=== PATIENT | female | born 1995 | race Caucasian/White ===

== ENCOUNTER 2016-12-13 18:41 | Emergency (ER) | payer OTHER ==
[2016-12-13 19:08] VITALS: TEMP 98.7
[2016-12-13] MEDS ORDERED: ONDANSETRON 4 MG/2 ML VIAL IVP STA (19:24)
[2016-12-13] MEDS ORDERED: SODIUM CHLORIDE 0.9% 1,000 ML IV STA (19:24)
[2016-12-13] MEDS ORDERED: FAMOTIDINE 20 MG/2 ML VIAL IV STA (19:24)
[2016-12-13] MEDS ORDERED: KETOROLAC 30 MG/ML 1 ML VIAL IVP STA ×2 (19:24→20:29)
[2016-12-13] MEDS ORDERED: DICYCLOMINE 10 MG/ML 2 ML AMP IM STA (19:25)
--- NOTE | 2016-12-13 19:28 | ED ---
Abdominal Pain HPI - General Chief Complaint: Abdominal Pain Stated Complaint: side pain Time Seen by Provider: 12/13/16 19:10 Source: patient Mode of arrival: ambulatory Limitations: no limitations - History of Present Illness Initial Comments: Patient is a 21-year-old female presenting with right sided flank pain. Patient states symptoms of for the past 3 weeks. Patient was evaluated in the ER at the onset of her symptoms with a negative CAT scan as well as negative ultrasound. Patient states she was placed on tramadol for which she has been out of. Patient however states that the tramadol didn't even help. Patient states today she had 4-6 episodes of nonbloody nonbilious vomit. Patient also complaining of 2 episodes of loose stool. Patient denies sick contacts, recent antibiotics, recent travel. Patient denies suspicious food ingestion. She denies fever, chills, chest pain, shortness breath. - Related Data Home Medications Medication Instructions Recorded Confirmed Albuterol Inhaler [Ventolin Hfa 1 - 2 puff INHALATION RT-Q6H PRN 11/20/16 Inhaler] Prazosin [Minipress] 2 mg PO HS 12/13/16 12/13/16 Sertraline [Zoloft] 50 mg PO DAILY 12/13/16 12/13/16 Previous Rx's Medication Instructions Recorded Dicyclomine [Bentyl] 20 mg PO Q6H PRN #20 tablet 12/13/16 Ibuprofen [Motrin] 600 mg PO Q6HR PRN #20 tab 12/13/16 Ondansetron [Zofran] 4 mg PO Q8HR PRN #14 tab 12/13/16 Allergies Allergy/AdvReac Type Severity Reaction Status Date / Time No Known Allergies Allergy Verified 12/13/16 19:41 Review of Systems ROS Statement: Those systems with pertinent positive or pertinent negative responses have been documented in the HPI. Constitutional: No fever and no chills. HENT: No congestion, no rhinorrhea and no sore throat. Eyes: No discharge and no redness. Respiratory: No cough and no shortness of breath. Cardiovascular: No chest pain and no palpitations. Gastrointestinal: +nausea, +vomiting, +abdominal pain and +diarrhea. Genitourinary: No dysuria and no hematuria. Musculoskeletal: No back pain and no arthralgias. Skin: No pallor and no rash. Neurological: No dizziness and No headaches. ROS Other: All systems not noted in ROS Statement are negative. Past Medical History Past Medical History: Asthma, GERD/Reflux Additional Past Medical History / Comment(s): Anxiety, Depression History of Any Multi-Drug Resistant Organisms: None Reported Past Surgical History: Orthopedic Surgery, Tonsillectomy Additional Past Surgical History / Comment(s): broken back, ribs Past Psychological History: Anxiety, Bipolar, Depression Smoking Status: Current every day smoker Past Alcohol Use History: Rare Past Drug Use History: None Reported General Exam - General Exam Comments Initial Comments: Constitutional: Patient appears well-developed and well-nourished. No distress. Patient is soft spoken. Head: Normocephalic and atraumatic. Eyes: Conjunctivae and EOM are normal. Right eye exhibits no discharge. Left eye exhibits no discharge. No scleral icterus. Neck: Normal range of motion. Neck supple. Cardiovascular: Normal rate and regular rhythm. No murmur heard. Pulmonary/Chest: Effort normal and breath sounds normal. No respiratory distress. No wheezes. Abdominal: Soft. No distension. Mild right sided tenderness. Negative McBurney 's. Negative Parada's. There is no rebound and no guarding. Musculoskeletal: Normal range of motion. No edema or tenderness. Neurological: Patient alert and oriented to person, place, and time. Skin: Skin is warm and dry. Not diaphoretic. Nursing notes and vitals reviewed. Limitations: no limitations Course Vital Signs 12/13/16 19:04 Temperature 98.7 F Pulse Rate 91 Respiratory 14 Rate Blood Pressure 113/71 O2 Sat by Pulse 97 Oximetry - Reevaluation(s) Reevaluation #1: 12/13/16 20:43 Patient's feeling much better. Abdomen soft nontender. Medical Decision Making - Medical Decision Making Patient is a 21-year-old female presenting with right abdominal pain for the past 3 months. Patient complaining of nausea, vomiting and diarrhea. Patient was seen for similar symptoms several weeks ago. She was advised to follow up with GI and general surgery for which was unable to do yet. Patient was given Ultram which did not help her pain. Patient had blood work done today including CBC, CMP, lipase, UA, urine were all unremarkable. Patient is feeling better after IV fluids, Bentyl, Zofran, Pepcid, Toradol. Patient was given prescription for Bentyl, Zofran and Motrin. Prior to discharge, patient was resting comfortably in bed. Course of stay improved. Denies pain. Discussed physical exam and diagnostic tests with patient. Questions answered and patient is agreeable to discharge with close follow up with Primary Care Physician. Instructed to return to Emergency Department if symptoms worsen. - Lab Data Result diagrams: 12/13/16 20:00 12/13/16 20:00 Lab Results 12/13/16 12/13/16 12/13/16 Range/Units 20:00 20:00 20:00 WBC 8.4 (3.8-10.6) k/uL RBC 5.40 (3.80-5.40) m/uL Hgb 15.9 (11.4-16.0) gm/dL Hct 45.5 (34.0-46.0) % MCV 84.3 (80.0-100.0) fL MCH 29.5 (25.0-35.0) pg MCHC 35.0 (31.0-37.0) g/dL RDW 13.1 (11.5-15.5) % Plt Count 277 (150-450) k/uL Neutrophils % 77 % Lymphocytes % 13 % Monocytes % 5 % Eosinophils % 3 % Basophils % 1 % Neutrophils # 6.5 (1.3-7.7) k/uL Lymphocytes # 1.1 (1.0-4.8) k/uL Monocytes # 0.4 (0-1.0) k/uL Eosinophils # 0.3 (0-0.7) k/uL Basophils # 0.1 (0-0.2) k/uL Sodium 143 (137-145) mmol/L Potassium 4.1 (3.5-5.1) mmol/L Chloride 106 (98-107) mmol/L Carbon Dioxide 23 (22-30) mmol/L Anion Gap 14 mmol/L BUN 12 (7-17) mg/dL Creatinine 0.70 (0.52-1.04) mg/dL Est GFR (MDRD) Af Amer >60 (>60 ml/min/1.73 sqM) Est GFR (MDRD) Non-Af >60 (>60 ml/min/1.73 sqM) Glucose 83 (74-99) mg/dL Calcium 9.4 (8.4-10.2) mg/dL Magnesium 2.0 (1.6-2.3) mg/dL Total Bilirubin 1.2 (0.2-1.3) mg/dL AST 21 (14-36) U/L ALT 30 (9-52) U/L Alkaline Phosphatase 86 (38-126) U/L Total Protein 7.9 (6.3-8.2) g/dL Albumin 4.6 (3.5-5.0) g/dL Urine Color Urine Appearance (Clear) Urine pH (5.0-8.0) Ur Specific [place] (1.001-1.035) Urine Protein (Negative) Urine Glucose (UA) (Negative) Urine Ketones (Negative) Urine Blood (Negative) Urine Nitrate (Negative) Urine Bilirubin (Negative) Urine Urobilinogen (<2.0) mg/dL Ur Leukocyte Esterase (Negative) Urine RBC (0-5) /hpf Urine WBC (0-5) /hpf Ur Squamous Epith Cells (0-4) /hpf Urine Bacteria (None) /hpf Urine Mucus (None) /hpf Urine HCG, Qual Not Detected (Not Detectd) 12/13/16 Range/Units 20:00 WBC (3.8-10.6) k/uL RBC (3.80-5.40) m/uL Hgb (11.4-16.0) gm/dL Hct (34.0-46.0) % MCV (80.0-100.0) fL MCH (25.0-35.0) pg MCHC (31.0-37.0) g/dL RDW (11.5-15.5) % Plt Count (150-450) k/uL Neutrophils % % Lymphocytes % % Monocytes % % Eosinophils % % Basophils % % Neutrophils # (1.3-7.7) k/uL Lymphocytes # (1.0-4.8) k/uL Monocytes # (0-1.0) k/uL Eosinophils # (0-0.7) k/uL Basophils # (0-0.2) k/uL Sodium (137-145) mmol/L Potassium (3.5-5.1) mmol/L Chloride (98-107) mmol/L Carbon Dioxide (22-30) mmol/L Anion Gap mmol/L BUN (7-17) mg/dL Creatinine (0.52-1.04) mg/dL Est GFR (MDRD) Af Amer (>60 ml/min/1.73 sqM) Est GFR (MDRD) Non-Af (>60 ml/min/1.73 sqM) Glucose (74-99) mg/dL Calcium (8.4-10.2) mg/dL Magnesium (1.6-2.3) mg/dL Total Bilirubin (0.2-1.3) mg/dL AST (14-36) U/L ALT (9-52) U/L Alkaline Phosphatase (38-126) U/L Total Protein (6.3-8.2) g/dL Albumin (3.5-5.0) g/dL Urine Color Yellow Urine Appearance Cloudy H (Clear) Urine pH 6.0 (5.0-8.0) Ur Specific [place] 1.021 (1.001-1.035) Urine Protein 1+ H (Negative) Urine Glucose (UA) Negative (Negative) Urine Ketones Negative (Negative) Urine Blood Moderate H (Negative) Urine Nitrate Negative (Negative) Urine Bilirubin Negative (Negative) Urine Urobilinogen <2.0 (<2.0) mg/dL Ur Leukocyte Esterase Negative (Negative) Urine RBC 6 H (0-5) /hpf Urine WBC 3 (0-5) /hpf Ur Squamous Epith Cells 3 (0-4) /hpf Urine Bacteria Few H (None) /hpf Urine Mucus Occasional H (None) /hpf Urine HCG, Qual (Not Detectd) Disposition Clinical Impression: Nausea vomiting and diarrhea, Abdominal pain Disposition: HOME SELF-CARE Condition: Good Instructions: Abdominal Pain (ED), Acute Nausea and Vomiting (ED), Acute Diarrhea (ED) Prescriptions: Ibuprofen [Motrin] 600 mg PO Q6HR PRN #20 tab PRN Reason: Pain Ondansetron [Zofran] 4 mg PO Q8HR PRN #14 tab PRN Reason: Nausea Dicyclomine [Bentyl] 20 mg PO Q6H PRN #20 tablet PRN Reason: Abdominal pain Referrals: None,Stated [Primary Care Provider] - 1-2 days Jose Diaz MD [Medical Doctor] - 1-2 days
[2016-12-13 20:17] LABS: Basophils # (A) 0.1 k/uL (0-0.2); Basophils % (A) 1 %; CH 30.7; CHCM 36.6; Eosinophils # (A) 0.3 k/uL (0-0.7); Eosinophils % (A) 3 %; HCT 45.5 % (34.0-46.0); HDW 2.92; HGB 15.9 gm/dL (11.4-16.0); Luc # (Auto) 0.06; Luc % (Auto) 1; Lymphocytes # (A) 1.1 k/uL (1.0-4.8); Lymphocytes % (A) 13 %; MCH 29.5 pg (25.0-35.0); MCV 84.3 fL (80.0-100.0); Mean Platelet Volume 6.6; Monocytes # (A) 0.4 k/uL (0-1.0); Monocytes % (A) 5 %; Neutrophils # (A) 6.5 k/uL (1.3-7.7); Neutrophils % (A) 77 %; RDW 13.1 % (11.5-15.5); WBC 8.4 k/uL (3.8-10.6); WBC (Perox) 8.39
[2016-12-13 20:20] LABS: Appearance,Urine Cloudy (Clear); Bacteria,Urine Few /hpf; Bilirubin,Urine Negative (Negative); Glucose,Urine (UA) Negative (Negative); Ketones,Urine Negative (Negative); Leukocyte Esterase,Urine Negative (Negative); Mucus,Urine Occasional /hpf; Nitrite,Urine Negative (Negative); Particle Count 6007; Protein,Urine 1+ (Negative); RBC,Urine 6 /hpf (0-5); Specific Gravity,Urine 1.021 (1.001-1.035); Squamous Epithelial Cell,Urine 3 /hpf (0-4); UA Billing (MACRO vs. MICRO) MICRO; Urobilinogen,Urine <2.0 mg/dL (<2.0); WBC,Urine 3 /hpf (0-5)
[2016-12-13 20:27] LABS: ALT 30 U/L (9-52); AST 21 U/L (14-36); Alkaline Phosphatase 86 U/L (38-126); Anion Gap 14 mmol/L; Blood Urea Nitrogen 12 mg/dL (7-17); Calcium 9.4 mg/dL (8.4-10.2); Carbon Dioxide 23 mmol/L (22-30); Chloride 106 mmol/L (98-107); Glucose 83 mg/dL (74-99); Non-African American GFR(MDRD) >60 (>60 ml/min/1.73 sqM); Potassium 4.1 mmol/L (3.5-5.1); Sodium 143 mmol/L (137-145); Total Bilirubin 1.2 mg/dL (0.2-1.3); Total Protein 7.9 g/dL (6.3-8.2)
[2016-12-13] MEDS ORDERED: diphenhydrAMINE 50 MG/ML 1 ML VIAL IVP STA (21:45)
[2016-12-13] MEDS ORDERED: METOCLOPRAMIDE 5 MG/ML 2 ML VIAL IVP STA (21:45)
[2016-12-13 21:57] VITALS: BP 184/80; PULSE 60; RESP 20
== END 2016-12-13 22:29 ==
LOC: EC 18:41
DX: R11.2 Nausea with vomiting, unspecified (principal); R10.9 Unspecified abdominal pain; F41.9 Anxiety disorder, unspecified; R19.7 Diarrhea, unspecified; F17.200 Nicotine dependence, unspecified, uncomplicated; Z79.899 Other long term (current) drug therapy
CPT/HCPCS: 36415; 80053; 83735; 85025; 81001; 81025; 87086; 99284; 96372; 96374; 96376; 96375; 96361; J1200; J0500; J2765; J2405; J1885

== ENCOUNTER 2017-02-09 16:09 | Emergency (ER) | payer OTHER ==
[2017-02-09 16:26] VITALS: BP 128/80; PULSE 95; TEMP 98.8
[2017-02-09] MEDS ORDERED: methylPREDNISolone SOD SUCCI 125 MG/2 ML VIAL IM STA (16:30)
[2017-02-09] MEDS ORDERED: diphenhydrAMINE 50 MG/ML 1 ML VIAL IM STA (16:30)
[2017-02-09] MEDS ORDERED: FAMOTIDINE 20 MG TAB PO STA (16:31)
--- NOTE | 2017-02-09 16:36 | ED ---
Allergic Reaction HPI - General Chief complaint: Allergic Reaction Stated complaint: hives and throat swelling Time Seen by Provider: 02/09/17 16:27 Source: patient, RN notes reviewed Mode of arrival: ambulatory Limitations: no limitations - History of Present Illness Initial Comments: 21-year-old female presents to the emergency Department chief complaint of hives and throat irritation. Patient has been having these hives and throat irritation for about a week now. She states she just feels as if her throat is mildly swollen she has no difficulty breathing she can form. Sentences and conversation she just feels some itching and irritation to throat. Patient states she also has the hives. They did Benadryl initially made better they haven't anything since and it seems to just be staying about the same. They state there is no dog in the house but she has a history of having that they do not know if it was that. they deny any His soaps or detergents or any other new products.Patient denies any recent fever, chills, shortness of breath, chest pain, back pain, abdominal pain, nausea vomiting, numbness or tingling, dysuria or hematuria, constipation or diarrhea, headaches or visual changes, or any other current symptoms. - Related Data Home Medications Medication Instructions Recorded Confirmed Albuterol Inhaler [Ventolin Hfa 1 - 2 puff INHALATION RT-Q6H PRN 11/20/16 Inhaler] Prazosin [Minipress] 2 mg PO HS 12/13/16 02/09/17 Sertraline [Zoloft] 50 mg PO DAILY 12/13/16 02/09/17 Previous Rx's Medication Instructions Recorded Ibuprofen [Motrin] 600 mg PO Q6HR PRN #20 tab 12/13/16 Famotidine [Pepcid] 20 mg PO BID #10 tablet 02/09/17 diphenhydrAMINE [Benadryl] 50 mg PO HS PRN #5 capsule 02/09/17 predniSONE 50 mg PO DAILY #5 tab 02/09/17 Allergies Allergy/AdvReac Type Severity Reaction Status Date / Time No Known Allergies Allergy Verified 02/09/17 16:26 Review of Systems ROS Statement: Those systems with pertinent positive or pertinent negative responses have been documented in the HPI. ROS Other: All systems not noted in ROS Statement are negative. Past Medical History Past Medical History: Asthma, GERD/Reflux Additional Past Medical History / Comment(s): Anxiety, Depression History of Any Multi-Drug Resistant Organisms: None Reported Past Surgical History: Orthopedic Surgery, Tonsillectomy Additional Past Surgical History / Comment(s): broken back, ribs Past Psychological History: Anxiety, Bipolar, Depression Smoking Status: Current every day smoker Past Alcohol Use History: None Reported, Rare Past Drug Use History: None Reported General Exam - General Exam Comments Initial Comments: General exam: Alert, active, comfortable in no apparent distress Head: Normocephalic Eyes: Normal reaction of pupils, equal size, normal range of extraocular motion Ears: normal external ear canals, pink tympanic membranes with normal cone of light Nose: clear with pink turbinates Throat: no erythema or exudates with normal sized tonsils Neck: no masses, no nuchal rigidity Chest: no chest wall deformity Lungs: equal air entry with no crackles or wheeze CVS: S1 and S2 normal with no audible mumurs, regular rhythm Abdomen: no hepatosplenomegaly, normal bowel sounds, no guarding or rigidity Spine: no scoliosis or deformity Skin: Urticaria Limitations: no limitations Course Vital Signs 02/09/17 02/09/17 16:22 16:52 Temperature 98.8 F Pulse Rate 95 Respiratory 18 16 Rate Blood Pressure 128/80 O2 Sat by Pulse 96 Oximetry Medical Decision Making - Medical Decision Making 21-year-old female presents with urticaria. This is suspicious of an ALLERGIC type reaction. Patient is complaining of some irritation however she's had it for a week and has been no worsening of. We'll start patient on steroids Benadryl and Pepcid for home. We did give her injections. She developed nausea questions. He stated he understood all questions have been answered. Discharged home. Disposition Clinical Impression: Urticaria Disposition: HOME SELF-CARE Condition: Stable Instructions: Urticaria (ED) Additional Instructions: Please use medication as discussed. Please follow up with family doctor if symptoms have not improved over the next two days. Please return to the emergency room if your symptoms increase or worsen or for any other concerns. Prescriptions: Famotidine [Pepcid] 20 mg PO BID #10 tablet diphenhydrAMINE [Benadryl] 50 mg PO HS PRN #5 capsule PRN Reason: Itching predniSONE 50 mg PO DAILY #5 tab Referrals: Kena Diaz MD [STAFF PHYSICIAN] - 1-2 days Time of Disposition: 17:05
[2017-02-09 16:55] VITALS: RESP 16
== END 2017-02-09 17:08 | disposition home or self-care (01) ==
LOC: EC 16:09
DX: L50.9 Urticaria, unspecified (principal); R22.1 Localized swelling, mass and lump, neck; F31.9 Bipolar disorder, unspecified; F41.9 Anxiety disorder, unspecified; F17.200 Nicotine dependence, unspecified, uncomplicated; Z79.899 Other long term (current) drug therapy
CPT/HCPCS: 99283; 96372 ×2; J1200; J2930

== ENCOUNTER 2017-02-27 08:05 | Emergency (ER) | payer OTHER ==
[2017-02-27 08:12] VITALS: BP 137/83; PULSE 94; RESP 16; TEMP 98.9
[2017-02-27] MEDS ORDERED: RX INFO: IV CONTRAST WAS GIVEN 1 EACH MISC MISCELLANE PRN (08:13)
[2017-02-27] MEDS ORDERED: SODIUM CHLORIDE 0.9% 1,000 ML IV STA (08:13)
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
[2017-02-27 08:26] LABS: Basophils # (A) 0.1 k/uL (0-0.2); Basophils % (A) 1 %; CH 30.7; CHCM 37.1; Eosinophils # (A) 0.3 k/uL (0-0.7); Eosinophils % (A) 4 %; HCT 42.2 % (34.0-46.0); HDW 2.94; HGB 15.4 gm/dL (11.4-16.0); Luc # (Auto) 0.13; Luc % (Auto) 2; Lymphocytes # (A) 1.8 k/uL (1.0-4.8); Lymphocytes % (A) 29 %; MCH 30.4 pg (25.0-35.0); MCHC 36.5 g/dL (31.0-37.0); MCV 83.3 fL (80.0-100.0); Mean Platelet Volume 6.1; Monocytes # (A) 0.3 k/uL (0-1.0); Monocytes % (A) 5 %; Neutrophils # (A) 3.7 k/uL (1.3-7.7); Neutrophils % (A) 59 %; RBC 5.07 m/uL (3.80-5.40); RDW 13.7 % (11.5-15.5); WBC 6.3 k/uL (3.8-10.6); WBC (Perox) 6.07
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
[2017-02-27 08:33] LABS: Partial Thromboplastin Time 24.6 sec (22.0-30.0); Prothrombin Time 10.6 sec (9.0-12.0)
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
[2017-02-27 08:34] LABS: ALT 24 U/L (9-52); AST 20 U/L (14-36); Alcohol <10 mg/dL; Alkaline Phosphatase 78 U/L (38-126); Amylase 43 U/L (30-110); Anion Gap 11 mmol/L; Blood Urea Nitrogen 10 mg/dL (7-17); Calcium 10.5 mg/dL (8.4-10.2); Carbon Dioxide 28 mmol/L (22-30); Chloride 104 mmol/L (98-107); Glucose 99 mg/dL (74-99); Non-African American GFR(MDRD) >60 (>60 ml/min/1.73 sqM); Potassium 4.4 mmol/L (3.5-5.1); Sodium 143 mmol/L (137-145); Total Bilirubin 0.5 mg/dL (0.2-1.3); Total Protein 7.8 g/dL (6.3-8.2)
[2017-02-27 08:49] LABS: Creatine Kinase 72 U/L (30-135)
[2017-02-27 08:50] LABS: Glucose,Whole Blood 106 mg/dL (75-99)
[2017-02-27] MEDS ORDERED: HYDROmorphone 1 MG/ML 1 ML SYRINGE IVP STA (08:58)
[2017-02-27 09:02] LABS: Creatine Kinase MB <0.2 ng/mL (0.0-2.4); Troponin I <0.012 ng/mL (0.000-0.034)
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
--- NOTE | 2017-02-27 09:15 | XR ---
EXAMINATION TYPE: XR knee complete LT DATE OF EXAM: 02/27/2017 9:01 AM COMPARISON: NONE HISTORY: Pain TECHNIQUE: Four views are submitted. FINDINGS: Joint spaces are preserved. Osseous structures are intact. No acute fracture seen. Diffuse osteope radha noted. No erosive changes. IMPRESSION: 1. No acute fracture or dislocation.
--- NOTE | 2017-02-27 09:19 | XR ---
EXAMINATION TYPE: XR foot complete RT DATE OF EXAM: 02/27/2017 9:01 AM COMPARISON: NONE HISTORY: Pain TECHNIQUE: Three views are submitted. FINDINGS: There is mild arthropathy of the first MTP joint.. There is a fracture involving the head of the four th metacarpal with mild displacement. IMPRESSION: 1. Fracture head of the fourth metacarpal. Mild displacement.
[2017-02-27 09:25] LABS: Appearance,Urine Clear (Clear); Bilirubin,Urine Negative (Negative); Glucose,Urine (UA) Negative (Negative); Ketones,Urine Negative (Negative); Leukocyte Esterase,Urine Negative (Negative); Nitrite,Urine Negative (Negative); Protein,Urine Negative (Negative); Specific Gravity,Urine 1.029 (1.001-1.035); UA Billing (MACRO vs. MICRO) CHEM; Urobilinogen,Urine <2.0 mg/dL (<2.0)
== END 2017-02-27 10:50 | disposition home or self-care (01) ==
LOC: EC 08:05
DX: S92.341A Displaced fracture of fourth metatarsal bone, right foot, initial encounter for closed fracture (principal); S20.219A Contusion of unspecified front wall of thorax, initial encounter; S30.1XXA Contusion of abdominal wall, initial encounter; S80.02XA Contusion of left knee, initial encounter; S09.90XA Unspecified injury of head, initial encounter; M54.2 Cervicalgia; F32.9 Major depressive disorder, single episode, unspecified; F41.9 Anxiety disorder, unspecified; F17.200 Nicotine dependence, unspecified, uncomplicated; Z79.899 Other long term (current) drug therapy; V87.7XXA Person injured in collision between other specified motor vehicles (traffic), initial encounter; Y92.410 Unspecified street and highway as the place of occurrence of the external cause
CPT/HCPCS: 99291; 29515; 96374; 96361 ×2; 36415; 93005; 86900; 86901; 80053; 82150; 82550; 82553; 83690; 84484; 85025; 85610; 85730; 86850; 81003; 81025; 80306; 80320; 71010; 72170; 73562; 73630; 72125; 70450; 71260; 74177; J1170; Q9967

== ENCOUNTER 2017-03-11 11:10 | Emergency (ER) | payer OTHER ==
[2017-03-11 11:35] VITALS: BP 185/81; TEMP 97.1
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
[2017-03-11 12:42] VITALS: PULSE 71; RESP 16
== END 2017-03-11 12:43 | disposition home or self-care (01) ==
LOC: EC 11:10
DX: S92.901D Unspecified fracture of right foot, subsequent encounter for fracture with routine healing (principal); F31.9 Bipolar disorder, unspecified; F17.200 Nicotine dependence, unspecified, uncomplicated; Z79.899 Other long term (current) drug therapy
CPT/HCPCS: 29515; 99283

== ENCOUNTER 2017-04-21 19:56 | Emergency (ER) | payer OTHER ==
[2017-04-21 20:17] VITALS: BP 116/61; PULSE 91; RESP 16; TEMP 98.6
--- NOTE | 2017-04-21 21:03 | ED ---
ENT HPI - General Chief complaint: ENT Stated complaint: Dizziness Time Seen by Provider: 04/21/17 20:21 Source: patient Mode of arrival: wheelchair Limitations: no limitations - History of Present Illness Initial comments: Patient is a 21-year-old female presenting to the emergency department with complaints of bilateral ear pain that started immediately this afternoon after patient jumped in the iqbal. Patient describes bilateral ear pain as pressure and a "feeling like her ears are crackly." Patient took Motrin 2 hours prior to arrival with minimal relief. Patient states she has a history of prior ear infections. MD complaint: ear pain Time: 16:00 Location: R ear, L ear Severity: severe Severity scale (1-10): 8 Consistency: constant Improves with: none Worsens with: none Context- Ear: recent swimming - Related Data Home Medications Medication Instructions Recorded Confirmed Albuterol Inhaler [Ventolin Hfa 1 - 2 puff INHALATION RT-Q6H PRN 11/20/16 Inhaler] Prazosin [Minipress] 2 mg PO HS 12/13/16 02/27/17 Sertraline [Zoloft] 50 mg PO DAILY 12/13/16 02/27/17 Famotidine [Pepcid] 20 mg PO BID PRN 02/27/17 02/27/17 Previous Rx's Medication Instructions Recorded Ibuprofen [Motrin] 600 mg PO Q6HR PRN #20 tab 12/13/16 diphenhydrAMINE [Benadryl] 50 mg PO HS PRN #5 capsule 02/09/17 Ibuprofen [Motrin] 800 mg PO Q6HR PRN #20 tab 02/27/17 Allergies Allergy/AdvReac Type Severity Reaction Status Date / Time No Known Allergies Allergy Verified 04/21/17 20:17 Review of Systems ROS Statement: Those systems with pertinent positive or pertinent negative responses have been documented in the HPI. ROS Other: All systems not noted in ROS Statement are negative. Past Medical History Past Medical History: Asthma, GERD/Reflux Additional Past Medical History / Comment(s): Anxiety, Depression History of Any Multi-Drug Resistant Organisms: None Reported Past Surgical History: Orthopedic Surgery, Tonsillectomy Additional Past Surgical History / Comment(s): broken back, ribs Past Psychological History: Anxiety, Bipolar, Depression Smoking Status: Current every day smoker Past Alcohol Use History: None Reported, Rare Past Drug Use History: None Reported General Exam Limitations: no limitations General appearance: alert, in no apparent distress Head exam: Present: atraumatic, normocephalic, normal inspection Eye exam: Present: normal appearance Expanded Mouth exam: Present: normal external inspection, tongue normal Teeth exam: Present: normal inspection Throat exam: normal inspection Neck exam: Present: normal inspection, full ROM. Absent: tenderness, lymphadenopathy Respiratory exam: Present: normal lung sounds bilaterally. Absent: respiratory distress, wheezes, rales, rhonchi, stridor Cardiovascular Exam: Present: regular rate, normal rhythm, normal heart sounds. Absent: systolic murmur, diastolic murmur, rubs, gallop, clicks GI/Abdominal exam: Present: soft, normal bowel sounds Extremities exam: Present: normal inspection, full ROM. Absent: tenderness Neurological exam: Present: alert, oriented X3, normal gait, other (No focal deficits noted) Psychiatric exam: Present: normal affect, normal mood Skin exam: Present: warm, dry, intact, normal color Course Vital Signs 04/21/17 20:13 Temperature 98.6 F Pulse Rate 91 Respiratory 16 Rate Blood Pressure 116/61 O2 Sat by Pulse 97 Oximetry Medical Decision Making - Medical Decision Making Bilateral ear pain suspect secondary to barotrauma secondary to diving into iqbal. No obvious signs of infection or eardrum trauma on ear exam. Patient instructed to use oral decongestants, antihistamines, and nasal decongestant spray to equalize pressure along with chewing gum and sucking hard candy. Patient instructed to continue Motrin or Tylenol for pain. Patient started to follow-up with primary care physician if symptoms do not resolve. Patient agrees with treatment plan. Discharge instructions and return parameters reviewed. Disposition Clinical Impression: Barotitis media Disposition: HOME SELF-CARE Condition: Good Instructions: Barotitis Media (ED) Additional Instructions: Oral decongestants, antihistamines, and nasal decongestants may help as well as chewing on hard candy or chewing gum. Please follow-up with primary care physician as directed if symptoms do not improve. Continue Motrin for pain. Please return to the emergency department if symptoms do not increase or get worse. Referrals: Salome Hidalgo MD [Primary Care Provider] - 1-2 days Time of Disposition: 21:03
== END 2017-04-21 21:10 | disposition home or self-care (01) ==
LOC: EC 19:56
DX: T70.0XXA Otitic barotrauma, initial encounter (principal); F32.9 Major depressive disorder, single episode, unspecified; F41.9 Anxiety disorder, unspecified; F17.200 Nicotine dependence, unspecified, uncomplicated; Z79.899 Other long term (current) drug therapy; X58.XXXA Exposure to other specified factors, initial encounter; Y93.15 Activity, underwater diving and snorkeling
CPT/HCPCS: 99283

== ENCOUNTER 2017-05-02 13:41 | Emergency (ER) | payer OTHER ==
[2017-05-02 13:51] VITALS: RESP 18
[2017-05-02] MEDS ORDERED: DIPH,PERTUS(ACELL)TETVAC-LF 0.5 ML VIAL IM ONE (14:14)
[2017-05-02] MEDS ORDERED: BACITRACIN OINT 1 EACH PACKET TOPICAL STA (14:27)
[2017-05-02] MEDS: BACITRACIN 500 UNIT/GM OINT 28.4 GM TUBE TOPICAL ONE ×2 (14:32→15:03)
--- NOTE | 2017-05-02 14:36 | ED ---
General Adult HPI - General Chief complaint: Upper Respiratory Infection Stated complaint: Congestion Time Seen by Provider: 05/02/17 14:07 Source: patient, RN notes reviewed Mode of arrival: EMS Limitations: no limitations - History of Present Illness Initial comments: Patient is a 21-year-old female who presents emergency room today with multiple complaints. She does admit that 3 days ago she burned her left lower leg with ROM and soup. She states that accidentally spilled went down her left leg. She does admit to 2 blisters to this area. She states she went to [facility] earlier today was advised come here to emergency room for further evaluation. She states that she's had increased cough congestion with rhinorrhea over the last 2 days. States that they wanted her to have chest x- ray and further evaluation. She does admit to some pain when she coughs to the anterior chest wall. Does admit to increased nasal drainage. Denies any other complaints or symptoms at this time. Patient denies any recent fever, chills, shortness of breath, chest pain, back pain, abdominal pain, nausea or vomiting, numbness or tingling, dysuria or hematuria, constipation or diarrhea, headaches or visual changes, or any other complaints. - Related Data Home Medications Medication Instructions Recorded Confirmed Albuterol Sulfate [Proair Hfa] 2 puff INHALATION RT-Q6H PRN 05/02/17 05/02/17 Previous Rx's Medication Instructions Recorded diphenhydrAMINE [Benadryl] 50 mg PO HS PRN #5 capsule 02/09/17 Ibuprofen [Motrin] 800 mg PO Q6HR PRN #20 tab 02/27/17 Amoxicillin/Potassium Clav 1 each PO Q12HR #20 tab 05/02/17 [Augmentin 875-125 Tablet] Fluticasone Propionate [Flonase 1 - 2 spray EA NOSTRIL DAILY 5 Days 05/02/17 Allergy Relief] Ibuprofen [Motrin] 600 mg PO Q6HR PRN #20 day 05/02/17 Ondansetron Odt [Zofran ODT] 4 mg PO Q8HR PRN #20 tab 05/02/17 Allergies Allergy/AdvReac Type Severity Reaction Status Date / Time No Known Allergies Allergy Verified 05/02/17 14:18 Review of Systems ROS Statement: Those systems with pertinent positive or pertinent negative responses have been documented in the HPI. ROS Other: All systems not noted in ROS Statement are negative. Past Medical History Past Medical History: Asthma, GERD/Reflux Additional Past Medical History / Comment(s): Anxiety, Depression History of Any Multi-Drug Resistant Organisms: None Reported Past Surgical History: Orthopedic Surgery, Tonsillectomy Additional Past Surgical History / Comment(s): broken back, ribs Past Psychological History: Anxiety, Bipolar, Depression Smoking Status: Current every day smoker Past Alcohol Use History: None Reported, Rare Past Drug Use History: None Reported General Exam - General Exam Comments Initial Comments: General: The patient is awake and alert, in no distress, and does not appear acutely ill. Eye: Pupils are equal, round and reactive to light, extra-ocular movements are intact. No nystagmus. There is normal conjunctiva bilaterally. No signs of icterus. Ears, nose, mouth and throat: There are moist mucous membranes and no oral lesions. Neck: The neck is supple, there is no tenderness or JVD. Cardiovascular: There is a regular rate and rhythm. No murmur, rub or gallop is appreciated. tender palpation to the anterior chest wall. Respiratory: Lungs are clear to auscultation, respirations are non-labored, breath sounds are equal. No wheezes, stridor, rales, or rhonchi. Gastrointestinal: Soft, non-distended, non-tender abdomen without masses or organomegaly noted. There is no rebound or guarding present. No CVA tenderness. Bowel sounds are unremarkable. Musculoskeletal: Normal ROM, no tenderness. Strength 5/5. Sensation intact. Pulses equal bilaterally 2+. Neurological: A&O x 3. CN II-XII intact, There are no obvious motor or sensory deficits. Coordination appears grossly intact. Speech is normal. Skin: patient does have a significant degree burn to the anterior aspect of the left lower leg. The wound is non-circumferential. There are 2 large blisters are closed. Wound area measures approximately 1-2% total body surface. Psychiatric: Cooperative, appropriate mood & affect, normal judgment. Limitations: no limitations Course Vital Signs 05/02/17 05/02/17 05/02/17 13:47 15:01 15:49 Temperature 99.0 F 100.4 F H 99.2 F Pulse Rate 104 H 104 H Respiratory 18 18 Rate Blood Pressure 119/63 127/65 O2 Sat by Pulse 97 97 Oximetry Medical Decision Making - Medical Decision Making Case discussed in detail with attending physician Dr. Gomez. Patient reexamined at this time shows no signs of distress. Patient resting comfortably in the stretcher. She does have tenderness over both frontal and maxillary sinuses. Does admit to a cough with sore throat as well. Patient does have a low-grade fever here in the emergency room. EKG does shows sinus tachycardia aren't 3 bpm. Chest x-ray reviewed and are negative for any sign of pneumonia or any other acute abnormality. Results were discussed with the patient. Patient's blood work reviewed and does show 12,000 white count. D-dimer mildly elevated at 0.52. Long discussion had with the patient about signs and symptoms of possible blood clot. Options were discussed about a CT of the chest to rule out a PE. The risks and benefits were discussed with the patient. At this time patient has declined CT states she feels that it is more cough congestion causing her symptoms. She be started on Flonase, Augmentin for sinus infection. Advised close follow-up family doctor return here to the emergency room if symptoms increase or worsen or for any other concerns. - Lab Data Result diagrams: 05/02/17 15:00 05/02/17 15:00 Lab Results 05/02/17 05/02/17 05/02/17 Range/Units 15:00 15:00 15:00 WBC 12.3 H (3.8-10.6) k/uL RBC 4.47 (3.80-5.40) m/uL Hgb 13.8 (11.4-16.0) gm/dL Hct 38.4 (34.0-46.0) % MCV 85.9 (80.0-100.0) fL MCH 31.0 (25.0-35.0) pg MCHC 36.1 (31.0-37.0) g/dL RDW 13.4 (11.5-15.5) % Plt Count 317 (150-450) k/uL Neutrophils % 87 % Lymphocytes % 7 % Monocytes % 3 % Eosinophils % 2 % Basophils % 0 % Neutrophils # 10.7 H (1.3-7.7) k/uL Lymphocytes # 0.8 L (1.0-4.8) k/uL Monocytes # 0.4 (0-1.0) k/uL Eosinophils # 0.3 (0-0.7) k/uL Basophils # 0.0 (0-0.2) k/uL D-Dimer 0.52 (<0.60) mg/L FEU Sodium 140 (137-145) mmol/L Potassium 3.8 (3.5-5.1) mmol/L Chloride 106 (98-107) mmol/L Carbon Dioxide 23 (22-30) mmol/L Anion Gap 11 mmol/L BUN 5 L (7-17) mg/dL Creatinine 0.57 (0.52-1.04) mg/dL Est GFR (MDRD) Af Amer >60 (>60 ml/min/1.73 sqM) Est GFR (MDRD) Non-Af >60 (>60 ml/min/1.73 sqM) Glucose 90 (74-99) mg/dL Calcium 9.4 (8.4-10.2) mg/dL Disposition Clinical Impression: Acute sinusitis Disposition: HOME SELF-CARE Condition: Good Instructions: Sinusitis (ED) Additional Instructions: Please use medication as discussed. Please follow-up with family doctor in the next 2 days. Please return to emergency room if the symptoms increase or worsen or for any other concerns. Prescriptions: Amoxicillin/Potassium Clav [Augmentin 875-125 Tablet] 1 each PO Q12HR #20 tab Fluticasone Propionate [Flonase Allergy Relief] 1 - 2 spray EA NOSTRIL DAILY 5 Days Ibuprofen [Motrin] 600 mg PO Q6HR PRN #20 day PRN Reason: Pain Ondansetron Odt [Zofran ODT] 4 mg PO Q8HR PRN #20 tab PRN Reason: Nausea Referrals: Salome Hidalgo MD [Primary Care Provider] - 1-2 days Time of Disposition: 16:11
--- NOTE | 2017-05-02 14:51 | XR ---
EXAMINATION TYPE: XR chest 2V DATE OF EXAM: 05/02/2017 COMPARISON: CXR from 02-27-2017. HISTORY: Cough and congestion since yesterday. TECHNIQUE: Frontal and lateral views of the chest are obtained. FINDINGS: There is no focal air space opacity, pleural effusion, or pneumothorax seen. The cardiac silhouette size is within normal limits. The osseous structures are intact. IMPRESSION: No acute cardiopulmonary process.
[2017-05-02 15:07] LABS: Basophils % (A) 0 %; CH 31.8; CHCM 37.1; Eosinophils # (A) 0.3 k/uL (0-0.7); Eosinophils % (A) 2 %; HCT 38.4 % (34.0-46.0); HDW 2.88; HGB 13.8 gm/dL (11.4-16.0); Luc # (Auto) 0.07; Luc % (Auto) 1; Lymphocytes # (A) 0.8 k/uL (1.0-4.8); Lymphocytes % (A) 7 %; MCHC 36.1 g/dL (31.0-37.0); MCV 85.9 fL (80.0-100.0); Mean Platelet Volume 5.9; Monocytes # (A) 0.4 k/uL (0-1.0); Monocytes % (A) 3 %; Neutrophils # (A) 10.7 k/uL (1.3-7.7); Neutrophils % (A) 87 %; RBC 4.47 m/uL (3.80-5.40); RDW 13.4 % (11.5-15.5); WBC 12.3 k/uL (3.8-10.6); WBC (Perox) 12.63
[2017-05-02 15:20] LABS: Anion Gap 11 mmol/L; Blood Urea Nitrogen 5 mg/dL (7-17); Calcium 9.4 mg/dL (8.4-10.2); Carbon Dioxide 23 mmol/L (22-30); Chloride 106 mmol/L (98-107); Glucose 90 mg/dL (74-99); Non-African American GFR(MDRD) >60 (>60 ml/min/1.73 sqM); Potassium 3.8 mmol/L (3.5-5.1); Sodium 140 mmol/L (137-145)
[2017-05-02 16:37] VITALS: BP 131/63; PULSE 111; TEMP 99.9
== END 2017-05-02 16:36 | disposition home or self-care (01) ==
LOC: EC 13:41
DX: J01.90 Acute sinusitis, unspecified (principal); T24.032A Burn of unspecified degree of left lower leg, initial encounter; T31.0 Burns involving less than 10% of body surface; R00.0 Tachycardia, unspecified; R79.1 Abnormal coagulation profile; F17.200 Nicotine dependence, unspecified, uncomplicated; Z23 Encounter for immunization; X12.XXXA Contact with other hot fluids, initial encounter
CPT/HCPCS: 36415; 71020; 80048; 85025; 85379; 90471; 90715; 93005; 99284

== ENCOUNTER 2017-08-05 09:42 | Emergency (ER) | payer OTHER ==
[2017-08-05] MEDS ORDERED: KETOROLAC 30 MG/ML 1 ML VIAL IVP STA (10:10)
[2017-08-05] MEDS ORDERED: SODIUM CHLORIDE 0.9% 1,000 ML IV STA (10:10)
--- NOTE | 2017-08-05 10:22 | ED ---
General Adult HPI - General Chief complaint: Abdominal Pain Stated complaint: ABDOMINAL AND BACK PAIN Time Seen by Provider: 08/05/17 10:00 Source: patient, RN notes reviewed Mode of arrival: ambulatory Limitations: no limitations - History of Present Illness Initial comments: 2-year-old female presents to the emergency department with a chief complaint of abdominal pain. Patient states around 3 AM she woke up and her whole abdomen hurts. Patient states it was a stabbing type pain. patient states that radiates to her back. Patient seen changes in bowel or bladder habits. Patient denies any nausea or vomiting. Patient denies any cough cold or runny nose like symptoms. Patient denies any abdominal surgeries. Patient was concerned due to her. So she thought that she should be evaluated.Patient denies any recent fever, chills, shortness of breath, chest pain, back pain, nausea vomiting, numbness or tingling, dysuria or hematuria, constipation or diarrhea, headaches or visual changes, or any other current symptoms. - Related Data Home Medications Medication Instructions Recorded Confirmed Albuterol Sulfate [Proair Hfa] 2 puff INHALATION RT-Q6H PRN 05/02/17 05/02/17 Previous Rx's Medication Instructions Recorded Ibuprofen [Motrin] 800 mg PO Q6HR PRN #20 tab 02/27/17 Dicyclomine [Bentyl] 10 mg PO TID #20 capsule 08/05/17 Ondansetron Odt [Zofran ODT] 4 mg PO Q8HR PRN #20 tab 08/05/17 Allergies Allergy/AdvReac Type Severity Reaction Status Date / Time No Known Allergies Allergy Verified 08/05/17 10:30 Review of Systems ROS Statement: Those systems with pertinent positive or pertinent negative responses have been documented in the HPI. ROS Other: All systems not noted in ROS Statement are negative. Past Medical History Past Medical History: Asthma, GERD/Reflux Additional Past Medical History / Comment(s): Anxiety, Depression History of Any Multi-Drug Resistant Organisms: None Reported Past Surgical History: Orthopedic Surgery, Tonsillectomy Additional Past Surgical History / Comment(s): broken back, ribs Past Psychological History: Anxiety, Bipolar, Depression Smoking Status: Current every day smoker Past Alcohol Use History: None Reported, Rare Past Drug Use History: None Reported General Exam - General Exam Comments Initial Comments: General: The patient is awake and alert, in no distress, and does not appear acutely ill. Eye: Pupils are equal, round and reactive to light, extra-ocular movements are intact; there is normal conjunctiva bilaterally. No signs of icterus. Ears, nose, mouth and throat: There are moist mucous membranes and no oral lesions. Neck: The neck is supple, there is no tenderness. Cardiovascular: There is a regular rate and rhythm. No murmur, rub or gallop is appreciated. Respiratory: Lungs are clear to auscultation, respirations are non-labored, breath sounds are equal. No wheezes, stridor, rales, or rhonchi. Gastrointestinal: Soft, non-distended, non-tender abdomen without masses or organomegaly noted. There is no rebound or guarding present. No CVA tenderness. Bowel sounds are unremarkable. Back: There is no tenderness to palpation in the midline. There is no obvious deformity. No rashes noted. Musculoskeletal: Normal ROM, no tenderness, There is no pedal edema. There is no calf tenderness or swelling. Sensation intact. Pulses equal bilaterally 2+. Neurological: CN II-XII intact, There are no obvious motor or sensory deficits. Coordination appears grossly intact. Speech is normal. Skin: Skin is warm and dry and no rashes or lesions are noted. Psychiatric: Cooperative, appropriate mood & affect, normal judgment. Limitations: no limitations Course Vital Signs 08/05/17 09:46 Temperature 97.1 F L Pulse Rate 66 Respiratory 18 Rate Blood Pressure 126/79 O2 Sat by Pulse 97 Oximetry Medical Decision Making - Medical Decision Making 22-year-old female presents emergency department with a chief complaint of abdominal pain.at this time lab work is reviewed as well as x-ray. This discussed other etiologies patient's pain however with several her with [facility] for home. We did discuss return for hours and follow-up and all the patient's family's questions. They stated they understood and the on agreement plan. All questions have been answered. They will be discharged. - Lab Data Result diagrams: 08/05/17 10:30 08/05/17 10:30 Lab Results 08/05/17 08/05/17 08/05/17 Range/Units 10:30 10:30 10:30 WBC 7.8 (3.8-10.6) k/uL RBC 5.02 (3.80-5.40) m/uL Hgb 15.0 (11.4-16.0) gm/dL Hct 42.9 (34.0-46.0) % MCV 85.5 (80.0-100.0) fL MCH 30.0 (25.0-35.0) pg MCHC 35.1 (31.0-37.0) g/dL RDW 13.1 (11.5-15.5) % Plt Count 315 (150-450) k/uL Neutrophils % 65 % Lymphocytes % 24 % Monocytes % 5 % Eosinophils % 4 % Basophils % 1 % Neutrophils # 5.1 (1.3-7.7) k/uL Lymphocytes # 1.9 (1.0-4.8) k/uL Monocytes # 0.4 (0-1.0) k/uL Eosinophils # 0.3 (0-0.7) k/uL Basophils # 0.0 (0-0.2) k/uL Sodium 141 (137-145) mmol/L Potassium 4.2 (3.5-5.1) mmol/L Chloride 108 H (98-107) mmol/L Carbon Dioxide 22 (22-30) mmol/L Anion Gap 11 mmol/L BUN 12 (7-17) mg/dL Creatinine 0.56 (0.52-1.04) mg/dL Est GFR (MDRD) Af Amer >60 (>60 ml/min/1.73 sqM) Est GFR (MDRD) Non-Af >60 (>60 ml/min/1.73 sqM) Glucose 92 (74-99) mg/dL Calcium 10.0 (8.4-10.2) mg/dL Total Bilirubin 0.2 (0.2-1.3) mg/dL AST 17 (14-36) U/L ALT 21 (9-52) U/L Alkaline Phosphatase 69 (38-126) U/L Total Protein 7.3 (6.3-8.2) g/dL Albumin 4.4 (3.5-5.0) g/dL Amylase <30 L (30-110) U/L Lipase 62 (23-300) U/L Urine Color Urine Appearance (Clear) Urine pH (5.0-8.0) Ur Specific [place] (1.001-1.035) Urine Protein (Negative) Urine Glucose (UA) (Negative) Urine Ketones (Negative) Urine Blood (Negative) Urine Nitrite (Negative) Urine Bilirubin (Negative) Urine Urobilinogen (<2.0) mg/dL Ur Leukocyte Esterase (Negative) Urine RBC (0-5) /hpf Urine WBC (0-5) /hpf Ur Squamous Epith Cells (0-4) /hpf Urine Bacteria (None) /hpf Urine HCG, Qual Not Detected (Not Detectd) 08/05/17 Range/Units 10:30 WBC (3.8-10.6) k/uL RBC (3.80-5.40) m/uL Hgb (11.4-16.0) gm/dL Hct (34.0-46.0) % MCV (80.0-100.0) fL MCH (25.0-35.0) pg MCHC (31.0-37.0) g/dL RDW (11.5-15.5) % Plt Count (150-450) k/uL Neutrophils % % Lymphocytes % % Monocytes % % Eosinophils % % Basophils % % Neutrophils # (1.3-7.7) k/uL Lymphocytes # (1.0-4.8) k/uL Monocytes # (0-1.0) k/uL Eosinophils # (0-0.7) k/uL Basophils # (0-0.2) k/uL Sodium (137-145) mmol/L Potassium (3.5-5.1) mmol/L Chloride (98-107) mmol/L Carbon Dioxide (22-30) mmol/L Anion Gap mmol/L BUN (7-17) mg/dL Creatinine (0.52-1.04) mg/dL Est GFR (MDRD) Af Amer (>60 ml/min/1.73 sqM) Est GFR (MDRD) Non-Af (>60 ml/min/1.73 sqM) Glucose (74-99) mg/dL Calcium (8.4-10.2) mg/dL Total Bilirubin (0.2-1.3) mg/dL AST (14-36) U/L ALT (9-52) U/L Alkaline Phosphatase (38-126) U/L Total Protein (6.3-8.2) g/dL Albumin (3.5-5.0) g/dL Amylase (30-110) U/L Lipase (23-300) U/L Urine Color Light Yellow Urine Appearance Clear (Clear) Urine pH 6.5 (5.0-8.0) Ur Specific [place] 1.007 (1.001-1.035) Urine Protein Negative (Negative) Urine Glucose (UA) Negative (Negative) Urine Ketones Negative (Negative) Urine Blood Trace H (Negative) Urine Nitrite Negative (Negative) Urine Bilirubin Negative (Negative) Urine Urobilinogen <2.0 (<2.0) mg/dL Ur Leukocyte Esterase Negative (Negative) Urine RBC 1 (0-5) /hpf Urine WBC 2 (0-5) /hpf Ur Squamous Epith Cells 1 (0-4) /hpf Urine Bacteria Rare H (None) /hpf Urine HCG, Qual (Not Detectd) - Radiology Data Radiology results: report reviewed, image reviewed Disposition Clinical Impression: Abdominal pain Disposition: HOME SELF-CARE Condition: Stable Instructions: Abdominal Pain (ED) Additional Instructions: Please use medication as discussed. Please follow up with family doctor if symptoms have not improved over the next two days. Please return to the emergency room if your symptoms increase or worsen or for any other concerns. Prescriptions: Dicyclomine [Bentyl] 10 mg PO TID #20 capsule Ondansetron Odt [Zofran ODT] 4 mg PO Q8HR PRN #20 tab PRN Reason: Nausea Referrals: Salome Hidalgo MD [Primary Care Provider] - 1-2 days Time of Disposition: 11:21
[2017-08-05 10:41] LABS: Basophils % (A) 1 %; CH 30.8; CHCM 36.1; Eosinophils # (A) 0.3 k/uL (0-0.7); Eosinophils % (A) 4 %; HCT 42.9 % (34.0-46.0); HDW 2.75; Luc # (Auto) 0.11; Luc % (Auto) 1; Lymphocytes # (A) 1.9 k/uL (1.0-4.8); Lymphocytes % (A) 24 %; MCHC 35.1 g/dL (31.0-37.0); MCV 85.5 fL (80.0-100.0); Mean Platelet Volume 6.2; Monocytes # (A) 0.4 k/uL (0-1.0); Monocytes % (A) 5 %; Neutrophils # (A) 5.1 k/uL (1.3-7.7); Neutrophils % (A) 65 %; RBC 5.02 m/uL (3.80-5.40); RDW 13.1 % (11.5-15.5); WBC 7.8 k/uL (3.8-10.6); WBC (Perox) 7.79
[2017-08-05 10:51] LABS: Appearance,Urine Clear (Clear); Bacteria,Urine Rare /hpf; Bilirubin,Urine Negative (Negative); Glucose,Urine (UA) Negative (Negative); Ketones,Urine Negative (Negative); Leukocyte Esterase,Urine Negative (Negative); Nitrite,Urine Negative (Negative); PH, Urine 6.5 (5.0-8.0); Particle Count 1219; Protein,Urine Negative (Negative); RBC,Urine 1 /hpf (0-5); Specific Gravity,Urine 1.007 (1.001-1.035); Squamous Epithelial Cell,Urine 1 /hpf (0-4); UA Billing (MACRO vs. MICRO) MICRO; Urobilinogen,Urine <2.0 mg/dL (<2.0); WBC,Urine 2 /hpf (0-5)
[2017-08-05 11:02] LABS: ALT 21 U/L (9-52); AST 17 U/L (14-36); Alkaline Phosphatase 69 U/L (38-126); Amylase <30 U/L (30-110); Anion Gap 11 mmol/L; Blood Urea Nitrogen 12 mg/dL (7-17); Carbon Dioxide 22 mmol/L (22-30); Chloride 108 mmol/L (98-107); Glucose 92 mg/dL (74-99); Non-African American GFR(MDRD) >60 (>60 ml/min/1.73 sqM); Potassium 4.2 mmol/L (3.5-5.1); Sodium 141 mmol/L (137-145); Total Bilirubin 0.2 mg/dL (0.2-1.3); Total Protein 7.3 g/dL (6.3-8.2)
--- NOTE | 2017-08-05 11:02 | XR ---
2 view abdomen HISTORY: Abdominal pain 2 views of the abdomen submitted on 3 images and correlated to prior abdomen pelvis CT 02/27/2017 There is a spinal curvature. There are air-fluid levels, gas-filled loops of small bowel without dist ention. No pneumoperitoneum. Lung bases are clear. IMPRESSION: Correlate for ileus or enteritis, follow-up as indicated should bowel obstruction be susp ected
[2017-08-05 11:54] VITALS: BP 125/86; PULSE 76; RESP 16; TEMP 98.6
== END 2017-08-05 11:50 | disposition home or self-care (01) ==
LOC: EC 09:42
DX: R10.84 Generalized abdominal pain (principal); M54.9 Dorsalgia, unspecified; F17.200 Nicotine dependence, unspecified, uncomplicated
CPT/HCPCS: 36415; 80053; 82150; 83690; 85025; 81001; 81025; 74020; 99284; 96374; 96361; J1885

== ENCOUNTER → 2017-11-20 | Outpatient (CLI) | payer OTHER ==
--- NOTE | 2017-11-20 21:27 | MR ---
EXAMINATION TYPE: MR shoulder LT wo con DATE OF EXAM: 11/20/2017 COMPARISON: Left shoulder 10/31/2017 plain film HISTORY: Sprain of left shoulder joint, Pain TECHNIQUE: Multiplanar, multisequence imaging of the left shoulder is performed without contrast. FINDINGS: Rotator Cuff: Intact Acromioclavicular Joint: Question some mild inferior displacement of the clavicle in relation to the acromion, mild hypertrophic change Glenohumeral Joint: Intact Labrum: The labrum appears grossly intact given limitation of non-arthrogram study. Biceps Tendon: The long head of biceps is in normal location within bicipital groove. Bone marrow signal: No focal abnormal marrow signal is appreciated. Other: No additional significant abnormality is appreciated. IMPRESSION: There is some mild inflammatory change at the acromioclavicular joint, consider weightbearing views. No evident rotator cuff tear.
== END ==
LOC: RADMRIMAIN 19:21
PROVIDERS: ATTEND Emergency Medicine
DX: M19.011 Primary osteoarthritis, right shoulder (principal)

== ENCOUNTER 2018-04-23 14:33 | Emergency (ER) | payer OTHER ==
[2018-04-23 14:53] VITALS: BP 126/81; PULSE 108; RESP 18; TEMP 98.2
--- NOTE | 2018-04-23 15:34 | ED ---
General Adult HPI - General Chief complaint: ENT Stated complaint: congestion Time Seen by Provider: 04/23/18 15:26 Source: patient, RN notes reviewed Mode of arrival: ambulatory Limitations: no limitations - History of Present Illness Initial comments: This is a 22-year-old female who presents to the emergency department with chief complaint of cough and sore throat. Patient does report a history of asthma. She states that for the past 2-1/2 months she has had a productive cough of green phlegm. She states that she cannot find her albuterol inhaler so has not been using it. She states that this morning she awoke with nasal and sinus congestion, ear pressure and sore throat. She states that she has had difficulty eating due to the pain in her throat. Denies nausea or vomiting , difficulty breathing, diarrhea or constipation, dysuria or hematuria. She states that her girlfriend is also here in the emergency department to be seen with the same upper respiratory symptoms - Related Data Home Medications Medication Instructions Recorded Confirmed Albuterol Sulfate [Proair Hfa] 2 puff INHALATION RT-Q6H PRN 05/02/17 04/23/18 Previous Rx's Medication Instructions Recorded Ibuprofen [Motrin] 600 mg PO Q6HR PRN #30 day 10/31/17 Albuterol Inhaler [Ventolin Hfa 1 - 2 puff INHALATION Q6HR PRN #1 04/23/18 Inhaler] inhaler predniSONE 20 mg PO BID #8 tab 04/23/18 Allergies Allergy/AdvReac Type Severity Reaction Status Date / Time Penicillins Allergy Unknown Verified 04/23/18 14:53 Childhood Review of Systems ROS Statement: Those systems with pertinent positive or pertinent negative responses have been documented in the HPI. ROS Other: All systems not noted in ROS Statement are negative. Past Medical History Past Medical History: Asthma, GERD/Reflux Additional Past Medical History / Comment(s): Anxiety, Depression History of Any Multi-Drug Resistant Organisms: None Reported Past Surgical History: Adenoidectomy, Orthopedic Surgery, Tonsillectomy Additional Past Surgical History / Comment(s): broken back, ribs Past Psychological History: Anxiety, Bipolar, Depression Smoking Status: Current every day smoker Past Alcohol Use History: Rare Past Drug Use History: None Reported General Exam - General Exam Comments Initial Comments: General: Awake and alert, well-developed; in no apparent distress. Patient does sound congested while speaking. HEENT: Head atraumatic, normocephalic. Pupils are equal, round and reactive to light. Extraocular movements intact. Oropharynx moist with mild erythema. No bilateral tonsillar enlargement or exudates. Neck: Supple. Normal ROM. Cardiovascular: Regular rate and rhythm. No murmurs, rubs or gallops. Chest symmetrical. Respiratory: Lungs clear to auscultation bilaterally. No wheezes, rales or rhonchi. Normal respiratory effort with no use of accessory muscles. Musculoskeletal: Normal ROM, no tenderness bilateral upper and lower extremities. Ambulating normally. Skin: [place], warm and dry without rashes or lesions. Neurological: Alert and oriented x3. CN II-XII grossly intact. Speech is fluent and answers are appropriate. No focal neuro deficits. Psychiatric: Normal mood and affect. No overt signs of depression or anxiety noted. Limitations: no limitations Course Vital Signs 04/23/18 14:49 Temperature 98.2 F Pulse Rate 108 H Respiratory 18 Rate Blood Pressure 126/81 O2 Sat by Pulse 97 Oximetry Medical Decision Making - Medical Decision Making This is a 22-year-old female who presents to the emergency department with chief complaint of cough and sore throat. Patient does report a history of asthma. She has had a productive cough for the past 2-1/2 months. She reports sore throat and nasal congestion that started this morning. Chest x-ray did reveal evidence for bronchitis with bronchial wall thickening. Rapid strep is negative. Patient will be started on a course of steroids and given a prescription for albuterol inhaler. Vital signs are stable and she is in no acute distress. She'll be discharged home at this time. All questions answered. She is in agreement with plan and voices understanding. - Radiology Data Radiology results: report reviewed, image reviewed Chest x-ray findings: There is no focal airspace opacity, pleural effusion or pneumothorax seen. The cardiac silhouette size is within normal limits. There is bronchial wall thickening. The osseous structures are intact. Impression: Correlate for reactive airways disease, bronchitis. Follow up as indicated. Disposition Clinical Impression: Acute bronchitis Disposition: HOME SELF-CARE Condition: Good Additional Instructions: Please take medications as prescribed. Please follow up with primary care provider within 1-2 days. Return to emergency department if symptoms should worsen or any concerns arise. Prescriptions: Albuterol Inhaler [Ventolin Hfa Inhaler] 1 - 2 puff INHALATION Q6HR PRN #1 inhaler PRN Reason: Dyspnea predniSONE 20 mg PO BID #8 tab Is patient prescribed a controlled substance at d/c from ED?: No Referrals: None,Stated [Primary Care Provider] - 1-2 days Time of Disposition: 16:07
--- NOTE | 2018-04-23 16:00 | XR ---
EXAMINATION TYPE: XR chest 2V DATE OF EXAM: 04/23/2018 COMPARISON: Prior chest x-ray 05/02/2017 HISTORY: Productive cough x2 weeks TECHNIQUE: Frontal and lateral views of the chest are obtained. FINDINGS: There is no focal air space opacity, pleural effusion, or pneumothorax seen. The cardiac silhouette size is within normal limits. There is bronchial wall thickening. The osseous structures are intact. IMPRESSION: Correlate for reactive airways disease, bronchitis. Follow-up as indicated.
[2018-04-23] MEDS ORDERED: predniSONE 50 MG TAB PO STA (16:04)
== END 2018-04-23 16:30 | disposition home or self-care (01) ==
LOC: EC 14:33
DX: J20.9 Acute bronchitis, unspecified (principal); F17.200 Nicotine dependence, unspecified, uncomplicated; Z88.0 Allergy status to penicillin
CPT/HCPCS: 99283; 87081; 87430; 71046; J7512

== ENCOUNTER 2018-05-05 12:28 | Emergency (ER) | payer OTHER ==
[2018-05-05 12:41] VITALS: BP 152/68; PULSE 104; RESP 18; TEMP 97.7
[2018-05-05] MEDS ORDERED: LORATADINE-PSEUDOEPH 5-120 MG 1 EACH TAB.ER.12H PO STA (12:50)
--- NOTE | 2018-05-05 12:56 | ED ---
General Adult HPI - General Chief complaint: Upper Respiratory Infection Stated complaint: Congestion, throat pain Time Seen by Provider: 05/05/18 12:38 Source: patient Mode of arrival: ambulatory Limitations: no limitations - History of Present Illness Initial comments: 22-year-old female patient presents to the emergency department today for evaluation of cough and nasal congestion. Patient states that she has had the symptoms for over a month. Patient states she was seen and evaluated here a couple of weeks ago was given a prescription for prednisone and albuterol. Patient states that she completed the prednisone has been using albuterol as directed and is not helping her symptoms. Patient states that she is coughing up dark green sputum. Patient states that she has had a couple of episodes of posttussive vomiting. States that she is experiencing nasal congestion and facial pressure. Patient states it does cause her to have headaches. She is also experiencing ear fullness and popping. She occasionally has pain to the right ear. Patient states that she has had chills, sweats, and has been generally achy. States that she has been very thirsty and has had a very dry mouth. Patient states that she is unable to follow-up with her primary care physician as her doctors are all in [place] and she has no transportation to get there. She denies any documented fevers. Denies any shortness of breath or chest pain. Patient denies any recent rash, abdominal pain, diarrhea, constipation, back pain, numbness, tingling, dizziness, weakness, hematuria, dysuria, urinary urgency, urinary frequency, visual changes, or any other complaints. - Related Data Home Medications Medication Instructions Recorded Confirmed Albuterol Sulfate [Proair Hfa] 2 puff INHALATION RT-Q6H PRN 05/02/17 04/23/18 Previous Rx's Medication Instructions Recorded Ibuprofen [Motrin] 600 mg PO Q6HR PRN #30 day 10/31/17 Albuterol Inhaler [Ventolin Hfa 1 - 2 puff INHALATION Q6HR PRN #1 04/23/18 Inhaler] inhaler predniSONE 20 mg PO BID #8 tab 04/23/18 Doxycycline Hyclate [Vibramycin] 100 mg PO BID #14 cap 05/05/18 Fluticasone Propionate [Flonase 1 spray EA NOSTRIL BID #15 ml 05/05/18 Allergy Relief] Loratadine [Claritin] 10 mg PO DAILY #30 tab 05/05/18 Allergies Allergy/AdvReac Type Severity Reaction Status Date / Time Penicillins Allergy Unknown Verified 05/05/18 12:40 Childhood Review of Systems ROS Statement: Those systems with pertinent positive or pertinent negative responses have been documented in the HPI. ROS Other: All systems not noted in ROS Statement are negative. Past Medical History Past Medical History: Asthma, GERD/Reflux Additional Past Medical History / Comment(s): Anxiety, Depression History of Any Multi-Drug Resistant Organisms: None Reported Past Surgical History: Adenoidectomy, Orthopedic Surgery, Tonsillectomy Additional Past Surgical History / Comment(s): broken back, ribs Past Psychological History: Anxiety, Bipolar, Depression Smoking Status: Current every day smoker Past Alcohol Use History: Rare Past Drug Use History: None Reported General Exam Limitations: no limitations General appearance: alert, in no apparent distress, other (This is a well- developed, well-nourished adult female patient in no acute distress. Vital signs upon arrival are temperature 97.7F, pulse 104, respirations 18, blood pressure 152/68, pulse ox 95% on room air.) Eye exam: Present: normal appearance, PERRL, EOMI. Absent: scleral icterus, conjunctival injection, periorbital swelling ENT exam: Present: normal exam, normal oropharynx, mucous membranes moist, TM's normal bilaterally, other (Frontal and maxillary sinus tenderness. No mastoid tenderness.) Respiratory exam: Present: normal lung sounds bilaterally, other (No respiratory distress. Respirations are even and unlabored. Patient is able to speak full sentences without difficulty). Absent: respiratory distress, wheezes , rales, rhonchi, stridor Cardiovascular Exam: Present: regular rate, normal rhythm, normal heart sounds. Absent: systolic murmur, diastolic murmur, rubs, gallop, clicks GI/Abdominal exam: Present: soft, normal bowel sounds. Absent: distended, tenderness, guarding, rebound, rigid Neurological exam: Present: alert, oriented X3, CN II-XII intact Psychiatric exam: Present: normal affect, normal mood Skin exam: Present: warm, dry, intact, normal color. Absent: rash Course Vital Signs 05/05/18 12:40 Temperature 97.7 F Pulse Rate 104 H Respiratory 18 Rate Blood Pressure 152/68 O2 Sat by Pulse 95 Oximetry Medical Decision Making - Medical Decision Making 22-year-old female patient presents the emergency department today for a greater than 1 month history of cough and nasal congestion and facial pressure. Patient reports that she was seen here and treated with prednisone. States she completed the prednisone and has been using her albuterol inhaler but has not had much improvement in her symptoms. Physical examination does reveal maxillary and frontal sinus tenderness. Lungs are clear to auscultation with good air movement. Tympanic membranes are within normal limits. Vital signs are stable. Chest x-ray shows no acute cardio pulmonary process. As patient has been experiencing nasal congestion and symptoms for over 1 month we'll treat her with doxycycline for sinusitis. She also be given up her prescription for Flonase and Claritin. She is instructed to follow-up with the primary care physician as soon as she can. Return parameters discussed in detail. She verbalizes understanding and agrees with this plan. - Lab Data Lab Results 05/05/18 05/05/18 05/05/18 Range/Units 13:03 13:03 13:17 POC Glucose (mg/dL) 93 (75-99) mg/dL POC Glu General Worker ID Diana Cheng Urine Color Yellow Urine Appearance Turbid H (Clear) Urine pH 6.5 (5.0-8.0) Ur Specific [place] 1.022 (1.001-1.035) Urine Protein 1+ H (Negative) Urine Glucose (UA) Negative (Negative) Urine Ketones Negative (Negative) Urine Blood Small H (Negative) Urine Nitrite Negative (Negative) Urine Bilirubin Negative (Negative) Urine Urobilinogen 3.0 (<2.0) mg/dL Ur Leukocyte Esterase Large H (Negative) Urine RBC 32 H (0-5) /hpf Urine WBC 11 H (0-5) /hpf Ur Squamous Epith Cells 24 H (0-4) /hpf Urine Bacteria Many H (None) /hpf Urine Mucus Moderate H (None) /hpf Urine HCG, Qual Not Detected (Not Detectd) - Radiology Data Radiology results: report reviewed, image reviewed Two-view x-ray of the chest is obtained. There is no focal airspace opacity, pleural effusion, or pneumothorax seen. The cardiac silhouette size is within normal limits. The osseous structures are intact. Impression by Dr. Albert shows no acute cardio pulmonary process. No significant change from prior. Disposition Clinical Impression: Acute sinusitis Disposition: HOME SELF-CARE Condition: Good Instructions: Sinusitis (ED), Allergies (ED) Additional Instructions: Take all medications as directed. Complete antibiotic prescription and full. Follow-up with the primary care physician as soon as possible. Return here immediately for any new, worsening, or concerning symptoms. Prescriptions: Doxycycline Hyclate [Vibramycin] 100 mg PO BID #14 cap Fluticasone Propionate [Flonase Allergy Relief] 1 spray EA NOSTRIL BID #15 ml Loratadine [Claritin] 10 mg PO DAILY #30 tab Is patient prescribed a controlled substance at d/c from ED?: No Referrals: None,Stated [Primary Care Provider] - 1-2 days Time of Disposition: 13:58
[2018-05-05 13:18] LABS: Glucose,Whole Blood 93 mg/dL (75-99)
[2018-05-05 13:31] LABS: Appearance,Urine Turbid (Clear); Bacteria,Urine Many /hpf; Bilirubin,Urine Negative (Negative); Blood,Urine Small (Negative); Color,Urine Yellow; Glucose,Urine (UA) Negative (Negative); Ketones,Urine Negative (Negative); Leukocyte Esterase,Urine Large (Negative); Mucus,Urine Moderate /hpf; Nitrite,Urine Negative (Negative); PH, Urine 6.5 (5.0-8.0); Protein,Urine 1+ (Negative); RBC,Urine 32 /hpf (0-5); Specific Gravity,Urine 1.022 (1.001-1.035); Squamous Epithelial Cell,Urine 24 /hpf (0-4); WBC,Urine 11 /hpf (0-5)
--- NOTE | 2018-05-05 13:38 | XR ---
EXAMINATION TYPE: XR chest 2V DATE OF EXAM: 05/05/2018 COMPARISON: Chest x-ray April 23, 2018 HISTORY: Bronchitis per patient. Pain per order. TECHNIQUE: Frontal and lateral views of the chest are obtained. FINDINGS: There is no focal air space opacity, pleural effusion, or pneumothorax seen. The cardiac silhouette size is within normal limits. The osseous structures are intact. IMPRESSION: No acute cardiopulmonary process. No significant change from prior.
== END 2018-05-05 14:20 | disposition home or self-care (01) ==
LOC: EC 12:28
DX: J01.80 Other acute sinusitis (principal); F17.200 Nicotine dependence, unspecified, uncomplicated; Z88.0 Allergy status to penicillin
CPT/HCPCS: 36415; 71046; 81001; 81025; 99283

== ENCOUNTER 2018-05-25 18:08 | Emergency (ER) | payer OTHER ==
[2018-05-25] MEDS ORDERED: ALBUTEROL NEBULIZED 2.5 MG/3 ML INHALATION STA (18:33)
[2018-05-25] MEDS ORDERED: IPRATROPIUM 0.5 MG/2.5 ML NEBU INHALATION STA (18:33)
[2018-05-25] MEDS ORDERED: TERBUTALINE 2.5 MG TAB PO STA (18:33)
[2018-05-25] MEDS ORDERED: MAGNESIUM OXIDE 400 MG TAB PO STA (18:33)
[2018-05-25] MEDS ORDERED: DEXAMETHASONE SOD PHOSPHATE 10 MG/ML 1 ML VIAL IM STA (18:33)
--- NOTE | 2018-05-25 18:39 | ED ---
General Adult HPI - General Chief complaint: Shortness of Breath Stated complaint: Asthma Attack Time Seen by Provider: 05/25/18 18:25 Source: patient, RN notes reviewed, old records reviewed Mode of arrival: wheelchair Limitations: no limitations - History of Present Illness Initial comments: This is a 23-year-old female the ER for evaluation or shortness of breath. Patient has history of asthma, place she's having asthma exacerbation, no chest pain just difficulty with speech. Patient does admit to positive history of smoking pain to smoke. Denies any other drugs or alcohol. No recent fevers no chest pain. No travel history no known sick contacts. No ALLERGIC exposures - Related Data Home Medications Medication Instructions Recorded Confirmed Albuterol Sulfate [Proair Hfa] 2 puff INHALATION RT-Q6H PRN 05/02/17 04/23/18 Previous Rx's Medication Instructions Recorded Ibuprofen [Motrin] 600 mg PO Q6HR PRN #30 day 10/31/17 Albuterol Inhaler [Ventolin Hfa 1 - 2 puff INHALATION Q6HR PRN #1 04/23/18 Inhaler] inhaler predniSONE 20 mg PO BID #8 tab 04/23/18 Doxycycline Hyclate [Vibramycin] 100 mg PO BID #14 cap 05/05/18 Fluticasone Propionate [Flonase 1 spray EA NOSTRIL BID #15 ml 05/05/18 Allergy Relief] Loratadine [Claritin] 10 mg PO DAILY #30 tab 05/05/18 Albuterol Sulfate [Proair Hfa] 1 - 2 puff INHALATION Q4H PRN #1 05/25/18 inhaler Azithromycin [Zithromax Z-pack] 0 mg PO DIRECTED #1 pack 05/25/18 predniSONE 50 mg PO DAILY #5 tab 05/25/18 Allergies Allergy/AdvReac Type Severity Reaction Status Date / Time Penicillins Allergy Unknown Verified 05/25/18 18:31 Childhood Review of Systems ROS Statement: Those systems with pertinent positive or pertinent negative responses have been documented in the HPI. ROS Other: All systems not noted in ROS Statement are negative. Past Medical History Past Medical History: Asthma, GERD/Reflux Additional Past Medical History / Comment(s): Anxiety, Depression History of Any Multi-Drug Resistant Organisms: None Reported Past Surgical History: Adenoidectomy, Orthopedic Surgery, Tonsillectomy Additional Past Surgical History / Comment(s): broken back, ribs Past Psychological History: Anxiety, Bipolar, Depression Smoking Status: Current every day smoker Past Alcohol Use History: Rare Past Drug Use History: None Reported General Exam Limitations: no limitations General appearance: alert, in no apparent distress Head exam: Present: atraumatic, normocephalic, normal inspection Eye exam: Present: normal appearance, PERRL, EOMI. Absent: scleral icterus, conjunctival injection, periorbital swelling ENT exam: Present: normal exam, mucous membranes moist Neck exam: Present: normal inspection. Absent: tenderness, meningismus, lymphadenopathy Respiratory exam: Present: normal lung sounds bilaterally, wheezes. Absent: respiratory distress, rales, rhonchi, stridor Cardiovascular Exam: Present: regular rate, normal rhythm, normal heart sounds. Absent: systolic murmur, diastolic murmur, rubs, gallop, clicks GI/Abdominal exam: Present: soft, normal bowel sounds. Absent: distended, tenderness, guarding, rebound, rigid Extremities exam: Present: normal inspection, full ROM, normal capillary refill. Absent: tenderness, pedal edema, joint swelling, calf tenderness Back exam: Present: normal inspection Neurological exam: Present: alert, oriented X3, CN II-XII intact Psychiatric exam: Present: normal affect, normal mood Skin exam: Present: warm, dry, intact, normal color. Absent: rash Course Vital Signs 05/25/18 05/25/18 05/25/18 18:23 18:29 18:41 Temperature 98.1 F Pulse Rate 91 84 Respiratory 22 20 Rate Blood Pressure 107/76 O2 Sat by Pulse 97 Oximetry 05/25/18 05/25/18 19:16 19:20 Temperature Pulse Rate 110 H 92 Respiratory 19 Rate Blood Pressure 131/60 O2 Sat by Pulse 99 Oximetry - Reevaluation(s) Reevaluation #1: 05/25/18 18:38 Patient feels much improvement with prolonged breathing treatment, patient given medications here in the ER Medical Decision Making - Medical Decision Making 23 female the ER positive asthma exacerbation, no acute distress. Patient be discharged home on steroids and breathing treatments - Radiology Data Radiology results: report reviewed (Chest x-rays negative for acute disease), image reviewed Disposition Clinical Impression: Asthma with exacerbation Disposition: HOME SELF-CARE Condition: Good Instructions: Asthma (ED) Prescriptions: Albuterol Sulfate [Proair Hfa] 1 - 2 puff INHALATION Q4H PRN #1 inhaler PRN Reason: Shortness Of Breath Azithromycin [Zithromax Z-pack] 0 mg PO DIRECTED #1 pack predniSONE 50 mg PO DAILY #5 tab Is patient prescribed a controlled substance at d/c from ED?: No Referrals: None,Stated [Primary Care Provider] - 1-2 days
[2018-05-25 19:23] VITALS: BP 131/60; PULSE 92; RESP 19
--- NOTE | 2018-05-25 19:28 | XR ---
EXAMINATION TYPE: XR chest 1V portable DATE OF EXAM: 05/25/2018 COMPARISON: Prior chest x-ray dated 05/05/2018. HISTORY: Shortness of breath and asthma attack TECHNIQUE: Single frontal view of the chest is obtained. FINDINGS: Inspiratory effort is less optimal than when compared with prior study. Increased density a t both lung bases consistent with infiltrate and atelectatic changes. No underlying pneumothorax. The patient is partially rotated and the scapula and obscuring the upper lung judge. IMPRESSION: Increased density at both lung bases consistent with bilateral basilar infiltrates and at electatic changes. New findings as compared with the prior exam.
[2018-05-25 19:43] VITALS: TEMP 98.7
== END 2018-05-25 19:43 | disposition home or self-care (01) ==
LOC: EC 18:08
DX: J45.901 Unspecified asthma with (acute) exacerbation (principal); F17.200 Nicotine dependence, unspecified, uncomplicated; Z88.0 Allergy status to penicillin
CPT/HCPCS: 94644; 71045; 99285; 96372; J1100

== ENCOUNTER 2018-05-26 05:19 | Emergency (ER) | payer OTHER ==
[2018-05-26] MEDS ORDERED: IPRATROPIUM-ALBUTEROL 3 ML NEB INHALATION STA (05:34)
[2018-05-26] MEDS ORDERED: SODIUM CHLORIDE 0.9% 1,000 ML IV STA (05:49)
[2018-05-26] MEDS: ONDANSETRON 4 MG/2 ML VIAL IVP STA ×2 (05:54→08:03)
[2018-05-26 06:16] LABS: Basophils % (A) 0 %; Eosinophils # (A) 0.1 k/uL (0-0.7); Eosinophils % (A) 1 %; HCT 41.1 % (34.0-46.0); HGB 14.4 gm/dL (11.4-16.0); Lymphocytes # (A) 0.7 k/uL (1.0-4.8); Lymphocytes % (A) 4 %; MCH 30.7 pg (25.0-35.0); MCV 87.9 fL (80.0-100.0); Mean Platelet Volume 6.1; Monocytes # (A) 0.3 k/uL (0-1.0); Monocytes % (A) 2 %; Neutrophils # (A) 14.5 k/uL (1.3-7.7); Neutrophils % (A) 93 %; Platelet Count 404 k/uL (150-450); RBC 4.68 m/uL (3.80-5.40); RDW 13.8 % (11.5-15.5); WBC 15.6 k/uL (3.8-10.6)
[2018-05-26 06:25] LABS: D-Dimer 0.24 mg/L FEU (<0.60); INR 1.1 (<1.2); Partial Thromboplastin Time 24.6 sec (22.0-30.0); Prothrombin Time 10.4 sec (9.0-12.0)
[2018-05-26 06:27] LABS: ALT 24 U/L (9-52); AST 21 U/L (14-36); Albumin 4.5 g/dL (3.5-5.0); Alkaline Phosphatase 70 U/L (38-126); Anion Gap 15 mmol/L; Blood Urea Nitrogen 8 mg/dL (7-17); Calcium 9.8 mg/dL (8.4-10.2); Carbon Dioxide 17 mmol/L (22-30); Chloride 112 mmol/L (98-107); Glucose 144 mg/dL (74-99); Sodium 144 mmol/L (137-145); Total Bilirubin 0.3 mg/dL (0.2-1.3); Total Protein 7.4 g/dL (6.3-8.2)
[2018-05-26 06:37] LABS: Creatine Kinase 128 U/L (30-135)
[2018-05-26 06:48] LABS: Creatine Kinase MB 0.6 ng/mL (0.0-2.4); Troponin I <0.012 ng/mL (0.000-0.034)
[2018-05-26 07:09] VITALS: RESP 18
--- NOTE | 2018-05-26 07:12 | XR ---
EXAM: XR Chest, 2 Views CLINICAL HISTORY: ITS.REASON XR Reason: difficulty breathing TECHNIQUE: Frontal and lateral views of the chest. COMPARISON: Chest x-ray dated 05/05/2018. FINDINGS: Lungs: Unremarkable. The lungs are clear. Pleural space: Unremarkable. No pneumothorax. Heart: Unremarkable. No cardiomegaly. Mediastinum: Unremarkable. Bones/joints: Unremarkable. Other findings: IMPRESSION: No acute findings.
--- NOTE | 2018-05-26 08:13 | ED ---
SOB HPI - General Chief Complaint: Shortness of Breath Stated Complaint: SOB/Vomiting Time Seen by Provider: 05/26/18 05:29 Source: patient Mode of arrival: wheelchair Limitations: no limitations - History of Present Illness Initial Comments: 23 years old female has history of asthma comes in with a shortness of breath she struggling to breathe and she said her breathing max (his heart health there. She is also complaining about chest pain only with a deep breaths though she denies any pulmonary embolism history or DVT denies any abdominal pain frequency urgency dysuria - Related Data Home Medications Medication Instructions Recorded Confirmed Albuterol Inhaler [Ventolin Hfa 1 - 2 puff INHALATION RT-Q6H PRN 05/26/18 Inhaler] Previous Rx's Medication Instructions Recorded Fluticasone Propionate [Flonase 1 spray EA NOSTRIL BID #15 ml 05/05/18 Allergy Relief] Loratadine [Claritin] 10 mg PO DAILY #30 tab 05/05/18 Albuterol Inhaler [Ventolin Hfa 2 puff INHALATION RT-Q6H PRN #1 05/26/18 Inhaler] inhaler Azithromycin [Zithromax Tri-Tre] 500 mg PO DAILY #3 tab 05/26/18 Allergies Allergy/AdvReac Type Severity Reaction Status Date / Time Penicillins Allergy Unknown Verified 05/26/18 08:13 Childhood Review of Systems ROS Statement: Those systems with pertinent positive or pertinent negative responses have been documented in the HPI. ROS Other: All systems not noted in ROS Statement are negative. Past Medical History Past Medical History: Asthma, GERD/Reflux Additional Past Medical History / Comment(s): Anxiety, Depression History of Any Multi-Drug Resistant Organisms: None Reported Past Surgical History: Adenoidectomy, Orthopedic Surgery, Tonsillectomy Additional Past Surgical History / Comment(s): broken back, ribs Past Psychological History: Anxiety, Bipolar, Depression Smoking Status: Current every day smoker Past Alcohol Use History: Rare Past Drug Use History: None Reported General Exam Limitations: no limitations Course Vital Signs 05/26/18 05/26/18 05/26/18 05:23 05:35 06:02 Temperature 97.9 F Pulse Rate 108 H 100 Respiratory 23 23 Rate Blood Pressure 147/102 O2 Sat by Pulse 98 Oximetry 05/26/18 05/26/18 05/26/18 06:10 06:37 07:08 Temperature Pulse Rate 102 H 104 H 90 Respiratory 20 18 Rate Blood Pressure 108/56 110/54 O2 Sat by Pulse 97 98 Oximetry EKG is normal sinus ventricular rate is 99 IA interval is 142 QRS duration is 100 QT/QTc is 354/454 and 50 CK G does not reveal any ST elevation or ST depression Medical Decision Making - Lab Data Result diagrams: 05/26/18 05:57 05/26/18 05:57 Lab Results 05/26/18 05/26/18 05/26/18 Range/Units 05:40 05:57 05:57 WBC 15.6 H (3.8-10.6) k/uL RBC 4.68 (3.80-5.40) m/uL Hgb 14.4 (11.4-16.0) gm/dL Hct 41.1 (34.0-46.0) % MCV 87.9 (80.0-100.0) fL MCH 30.7 (25.0-35.0) pg MCHC 35.0 (31.0-37.0) g/dL RDW 13.8 (11.5-15.5) % Plt Count 404 (150-450) k/uL Neutrophils % 93 % Lymphocytes % 4 % Monocytes % 2 % Eosinophils % 1 % Basophils % 0 % Neutrophils # 14.5 H (1.3-7.7) k/uL Lymphocytes # 0.7 L (1.0-4.8) k/uL Monocytes # 0.3 (0-1.0) k/uL Eosinophils # 0.1 (0-0.7) k/uL Basophils # 0.0 (0-0.2) k/uL PT (9.0-12.0) sec INR (<1.2) APTT (22.0-30.0) sec D-Dimer (<0.60) mg/L FEU Sodium (137-145) mmol/L Potassium (3.5-5.1) mmol/L Chloride (98-107) mmol/L Carbon Dioxide (22-30) mmol/L Anion Gap mmol/L BUN (7-17) mg/dL Creatinine (0.52-1.04) mg/dL Est GFR (CKD-EPI)AfAm (>60 ml/min/1.73 sqM) Est GFR (CKD-EPI)NonAf (>60 ml/min/1.73 sqM) Glucose (74-99) mg/dL Calcium (8.4-10.2) mg/dL Total Bilirubin (0.2-1.3) mg/dL AST (14-36) U/L ALT (9-52) U/L Alkaline Phosphatase (38-126) U/L Total Creatine Kinase 128 (30-135) U/L CK-MB (CK-2) 0.6 (0.0-2.4) ng/mL CK-MB (CK-2) Rel Index 0.5 Troponin I <0.012 (0.000-0.034) ng/mL Total Protein (6.3-8.2) g/dL Albumin (3.5-5.0) g/dL Urine HCG, Qual Not Detected (Not Detectd) 05/26/18 05/26/18 Range/Units 05:57 05:57 WBC (3.8-10.6) k/uL RBC (3.80-5.40) m/uL Hgb (11.4-16.0) gm/dL Hct (34.0-46.0) % MCV (80.0-100.0) fL MCH (25.0-35.0) pg MCHC (31.0-37.0) g/dL RDW (11.5-15.5) % Plt Count (150-450) k/uL Neutrophils % % Lymphocytes % % Monocytes % % Eosinophils % % Basophils % % Neutrophils # (1.3-7.7) k/uL Lymphocytes # (1.0-4.8) k/uL Monocytes # (0-1.0) k/uL Eosinophils # (0-0.7) k/uL Basophils # (0-0.2) k/uL PT 10.4 (9.0-12.0) sec INR 1.1 (<1.2) APTT 24.6 (22.0-30.0) sec D-Dimer 0.24 (<0.60) mg/L FEU Sodium 144 (137-145) mmol/L Potassium 4.0 (3.5-5.1) mmol/L Chloride 112 H (98-107) mmol/L Carbon Dioxide 17 L (22-30) mmol/L Anion Gap 15 mmol/L BUN 8 (7-17) mg/dL Creatinine 0.51 L (0.52-1.04) mg/dL Est GFR (CKD-EPI)AfAm >90 (>60 ml/min/1.73 sqM) Est GFR (CKD-EPI)NonAf >90 (>60 ml/min/1.73 sqM) Glucose 144 H (74-99) mg/dL Calcium 9.8 (8.4-10.2) mg/dL Total Bilirubin 0.3 (0.2-1.3) mg/dL AST 21 (14-36) U/L ALT 24 (9-52) U/L Alkaline Phosphatase 70 (38-126) U/L Total Creatine Kinase (30-135) U/L CK-MB (CK-2) (0.0-2.4) ng/mL CK-MB (CK-2) Rel Index Troponin I (0.000-0.034) ng/mL Total Protein 7.4 (6.3-8.2) g/dL Albumin 4.5 (3.5-5.0) g/dL Urine HCG, Qual (Not Detectd) Disposition Clinical Impression: Shortness of breath Disposition: HOME SELF-CARE Condition: Good Instructions: Acute Bronchitis (ED) Prescriptions: Albuterol Inhaler [Ventolin Hfa Inhaler] 2 puff INHALATION RT-Q6H PRN #1 inhaler PRN Reason: sob Azithromycin [Zithromax Tri-Tre] 500 mg PO DAILY #3 tab Is patient prescribed a controlled substance at d/c from ED?: No Referrals: None,Stated [Primary Care Provider] - 1-2 days
[2018-05-26 08:41] VITALS: BP 107/56; PULSE 97; TEMP 97.8
== END 2018-05-26 08:41 | disposition home or self-care (01) ==
LOC: EC 05:19
DX: R06.02 Shortness of breath (principal); R07.1 Chest pain on breathing; R06.89 Other abnormalities of breathing; J45.909 Unspecified asthma, uncomplicated; F17.200 Nicotine dependence, unspecified, uncomplicated; Z88.0 Allergy status to penicillin
CPT/HCPCS: 99285; 96374; 96376; 96361 ×3; 36415; 94640; 93005; 85379; 80053; 82550; 82553; 84484; 85025; 85610; 85730; 81025; 71046; J2405

== ENCOUNTER 2018-10-14 14:55 | Emergency (ER) | payer OTHER ==
--- NOTE | 2018-10-14 15:22 | ED ---
Lower Extremity Injury HPI - General Chief Complaint: Extremity Injury, Lower Stated Complaint: Ankle injury Time Seen by Provider: 10/14/18 15:12 Source: patient, RN notes reviewed, old records reviewed Mode of arrival: wheelchair Limitations: no limitations - History of Present Illness Initial Comments: Patient's 23-year-old female presents emergency Department immediately of left foot and ankle pain. Patient reports that she was moving a box spring, and the box spring was stuck. She reports that she tried her mother from a corner and fell and hit her left foot and ankle. Patient reports she has pain with range of motion or ambulation over the foot. Patient states that she has no previous injury to this left foot or ankle before. She's had previous right ankle sprains. Patient states that she has numbness and tingling in the toes. - Related Data Home Medications Medication Instructions Recorded Confirmed Albuterol Inhaler [Ventolin Hfa 1 - 2 puff INHALATION RT-Q6H PRN 05/26/18 Inhaler] Previous Rx's Medication Instructions Recorded Fluticasone Propionate [Flonase 1 spray EA NOSTRIL BID #15 ml 05/05/18 Allergy Relief] Loratadine [Claritin] 10 mg PO DAILY #30 tab 05/05/18 Albuterol Inhaler [Ventolin Hfa 2 puff INHALATION RT-Q6H PRN #1 05/26/18 Inhaler] inhaler Azithromycin [Zithromax Tri-Tre] 500 mg PO DAILY #3 tab 05/26/18 Ibuprofen 600 mg PO TID #30 tablet 10/14/18 Allergies Allergy/AdvReac Type Severity Reaction Status Date / Time Penicillins Allergy Unknown Verified 05/26/18 08:13 Childhood Review of Systems ROS Statement: Those systems with pertinent positive or pertinent negative responses have been documented in the HPI. ROS Other: All systems not noted in ROS Statement are negative. Past Medical History Past Medical History: Asthma, GERD/Reflux Additional Past Medical History / Comment(s): Anxiety, Depression History of Any Multi-Drug Resistant Organisms: None Reported Past Surgical History: Adenoidectomy, Orthopedic Surgery, Tonsillectomy Additional Past Surgical History / Comment(s): broken back, ribs Past Psychological History: Anxiety, Bipolar, Depression Smoking Status: Current every day smoker Past Alcohol Use History: Rare Past Drug Use History: Marijuana General Exam - General Exam Comments Initial Comments: 23-year-old female. Alert and oriented. Patient appears in no acute distress. General: Well appearing, well nourished, in no distress. Oriented x 3, normal mood and affect . Ambulating without difficulty. Skin: Good turgor, no rash, unusual bruising or prominent lesions Hair: Normal texture and distribution. HEENT: Head: Normocephalic, atraumatic, no visible or palpable masses, depressions, or scaring. Eyes: Visual acuity intact, conjunctiva clear, sclera non-icteric, EOM intact, PERRL. Ears: EACs clear, TMs translucent & cone of light visualized. hearing intact. Nose: No external lesions, mucosa non-inflamed, septum and turbinates normal Mouth: Mucous membranes moist, no mucosal lesions. Heart: No cardiomegaly or thrills; regular rate and rhythm, no murmur or gallop Lungs: Clear to auscultation and percussion Abdomen: Bowel sounds normal, no tenderness, organomegaly, masses, or hernia Back: Spine normal without deformity or tenderness, no CVA tenderness Extremities: No amputations or deformities, cyanosis, edema or varicosities, peripheral pulses intact. Patient is tender over the left fifth metatarsal. She has normal dorsalis pedis pulse and sensation. Musculoskeletal: Normal gait and station. No misalignment, asymmetry, crepitation, defects, tenderness, masses, effusions, decreased range of motion, instability, atrophy or abnormal strength or tone in the head, neck, spine, ribs , pelvis or extremities. Neurologic: CN 2-12 normal. Sensation to pain, touch, and proprioception normal. DTRs normal in upper and lower extremities. No pathologic reflexes. Psychiatric: Oriented X3, intact recent and remote memory, judgment and insight , normal mood and affect. Limitations: no limitations Course Vital Signs 10/14/18 10/14/18 15:04 16:20 Temperature 97.4 F L 98.3 F Pulse Rate 92 99 Respiratory 22 20 Rate Blood Pressure 124/82 118/58 O2 Sat by Pulse 98 99 Oximetry Medical Decision Making - Medical Decision Making Patient's 23-year-old female presents emergency Department immediately of left foot and ankle pain. Patient reports that she was moving a box spring, and the box spring was stuck. She reports that she tried her mother from a corner and fell and hit her left foot and ankle. Patient understands time has some contusions over the foot and ankle. She does have range of motion noted. Normal range of motion of the toes. X-ray was completed and negative for any acute process. Patient started an [place] wrap. Discussed contusion and likely sprain. She can rest ice and elevate her foot. Patient agrees to treatment plan will comply. Return parameters were discussed. - Radiology Data Radiology results: report reviewed Ankle x-ray negative for any acute fracture dislocation. Disposition Clinical Impression: Ankle contusion, Ankle sprain Disposition: HOME SELF-CARE Condition: Good Instructions: Foot Contusion (ED) Additional Instructions: Patient is to rest, ice, and elevate the foot and ankle. Follow-up with orthopedic. Return to emergency department if any alarming signs or symptoms occur. Prescriptions: Ibuprofen 600 mg PO TID #30 tablet Is patient prescribed a controlled substance at d/c from ED?: No Referrals: None,Stated [Primary Care Provider] - 1-2 days Kena Diaz MD [STAFF PHYSICIAN] - 1-2 days Time of Disposition: 16:12
--- NOTE | 2018-10-14 15:48 | XR ---
Left ankle and left foot HISTORY: Trauma and pain 3 views of the left ankle and 3 views of the left foot submitted. Bone mineralization, joint spaces and alignment are maintained. Soft tissue calcification in the dist al leg likely is vascular. IMPRESSION: No acute fracture or dislocation.
[2018-10-14 16:29] VITALS: BP 118/58; PULSE 99; RESP 20; TEMP 98.3
== END 2018-10-14 16:20 | disposition home or self-care (01) ==
LOC: EC 14:55
DX: S93.402A Sprain of unspecified ligament of left ankle, initial encounter (principal); J45.909 Unspecified asthma, uncomplicated; F17.200 Nicotine dependence, unspecified, uncomplicated; Z88.0 Allergy status to penicillin
CPT/HCPCS: 73610; 73630; 99284; 29515; L4350

== ENCOUNTER → 2018-11-14 | Outpatient (CLI) | payer OTHER ==
[2018-11-14 15:48] LABS: Basophils # (A) 0.1 k/uL (0-0.2); Basophils % (A) 1 %; Eosinophils # (A) 0.2 k/uL (0-0.7); Eosinophils % (A) 2 %; HCT 47.4 % (34.0-46.0); HGB 15.9 gm/dL (11.4-16.0); Lymphocytes # (A) 2.3 k/uL (1.0-4.8); Lymphocytes % (A) 25 %; MCH 29.9 pg (25.0-35.0); MCHC 33.6 g/dL (31.0-37.0); MCV 88.9 fL (80.0-100.0); Mean Platelet Volume 6.2; Monocytes # (A) 0.5 k/uL (0-1.0); Monocytes % (A) 5 %; Neutrophils % (A) 66 %; Platelet Count 343 k/uL (150-450); RBC 5.33 m/uL (3.80-5.40); RDW 13.1 % (11.5-15.5)
[2018-11-19 14:29] LABS: Alpha 1 Anti-Trypsin 166 mg/dL (90 - 200)
[2018-11-19 22:14] LABS: Alternaria Alternata IgG 3.4 mcg/mL (< 13.6); Aspergillus fumigatus IgG Not detected (Not detected); Aureobasidium pullulans IgG <2.0 mcg/mL (< 13.6); Cladosporium herbarium IgG 25.3 mcg/mL (< 14.7); Phoma ssp. IgG 6.1 mcg/mL (< 6.6); Saccaharomospora viridis Not detected (Not detected); Saccaharopoly. rectivirgula Not detected (Not detected)
[2018-11-20 09:16] LABS: Cat Epith & Dander IgE <0.35 kU/L (<0.35); Cat Epith & Dander IgE Class CLASS 0; Clad herbarum IgE <0.35 kU/L (<0.35); Cockroach IgE <0.35 kU/L (<0.35); Cottonwood IgE <0.35 kU/L (<0.35); Dermato. Pteronyssinus IgE <0.35 kU/L (<0.35); Dermato. farinae IgE <0.35 kU/L (<0.35); Dermato. farinae IgE Class CLASS 0; Dog Dander IgE <0.35 kU/L (<0.35); Elm IgE <0.35 kU/L (<0.35); Maple (Box Elder) IgE <0.35 kU/L (<0.35); Maple (Box Elder) IgE Class CLASS 0; Mountain Cedar IgE <0.35 kU/L (<0.35); Mountain Cedar IgE Class CLASS 0; Mouse Urine IgE Class CLASS 0; Nettle IgE <0.35 kU/L (<0.35); Nettle IgE Class CLASS 0; Oak IgE <0.35 kU/L (<0.35); Penicillium notatum IgE Class CLASS 0; Rough Marshelder IgE <0.35 kU/L (<0.35); Rough Marshelder IgE Class CLASS 0; Timothy Grass IgE <0.35 kU/L (<0.35); White Ash IgE Class CLASS 0
== END | disposition home or self-care (01) ==
LOC: LABWHC1 15:27
PROVIDERS: ATTEND Internal Medicine
DX: J45.50 Severe persistent asthma, uncomplicated (principal)
CPT/HCPCS: 36415; 82103; 82104; 82785; 85025; 86001; 86003; 86606; 86609

== ENCOUNTER 2018-12-25 09:27 | Emergency (ER) | payer OTHER ==
[2018-12-25] MEDS ORDERED: SODIUM CHLORIDE 0.9% 1,000 ML IV ONE (09:46)
[2018-12-25] MEDS ORDERED: ONDANSETRON 4 MG/2 ML VIAL IVP STA (09:46)
[2018-12-25] MEDS ORDERED: KETOROLAC 30 MG/ML 1 ML VIAL IVP STA (09:46)
[2018-12-25] MEDS ORDERED: ACETAMINOPHEN TAB 500 MG TAB PO STA (09:47)
--- NOTE | 2018-12-25 09:55 | ED ---
URI HPI - General Chief Complaint: Upper Respiratory Infection Stated Complaint: vomiting, cough Time Seen by Provider: 12/25/18 09:34 Source: patient, RN notes reviewed, old records reviewed Mode of arrival: ambulatory Limitations: no limitations - History of Present Illness Initial Comments: Patient is a 23-year-old female who presents emergency Department with multiple complaints. Patient states that she's had a bad cough for the past 2 days. She complains of fevers chills and body aches. She states that last night she' s had over 10 episodes of vomiting. She reports that she's had feeling weak. Patient states that she's not had any recent Motrin or Tylenol due to the concern for vomiting. She's had no bloody emesis. She denies diarrhea. She reports a history of sick contacts including her child and people that she lives with. - Related Data Home Medications Medication Instructions Recorded Confirmed Budesonide/Formoterol Fumarate 2 puff INHALATION RT-BID 12/25/18 12/25/18 [Symbicort 80-4.5 Mcg Inhaler] Citalopram Hydrobromide [CeleXA] 20 mg PO DAILY 12/25/18 12/25/18 Cyclobenzaprine [Flexeril] 10 mg PO HS PRN 12/25/18 12/25/18 Ibuprofen [Motrin Ib] 400 mg PO Q6H 12/25/18 12/25/18 guanFACINE [Tenex] 1 mg PO HS 12/25/18 12/25/18 Previous Rx's Medication Instructions Recorded Albuterol Inhaler [Ventolin Hfa 1 - 2 puff INHALATION RT-Q6H PRN 12/25/18 Inhaler] #1 inhaler Azithromycin [Zithromax Z-pack] 250 mg PO DIRECTED #6 tab 12/25/18 Ondansetron [Zofran] 4 mg PO Q8HR PRN #12 tab 12/25/18 methylPREDNISolone Dose Pack 4 mg PO DIRECTED #21 package 12/25/18 [Medrol Dose Pack] Allergies Allergy/AdvReac Type Severity Reaction Status Date / Time Penicillins Allergy Unknown Verified 12/25/18 10:47 Childhood Review of Systems ROS Statement: Those systems with pertinent positive or pertinent negative responses have been documented in the HPI. ROS Other: All systems not noted in ROS Statement are negative. Past Medical History Past Medical History: Asthma, GERD/Reflux Additional Past Medical History / Comment(s): Anxiety, Depression History of Any Multi-Drug Resistant Organisms: None Reported Past Surgical History: Adenoidectomy, Orthopedic Surgery, Tonsillectomy Additional Past Surgical History / Comment(s): broken back, ribs Past Psychological History: Anxiety, Bipolar, Depression Smoking Status: Current every day smoker Past Alcohol Use History: Rare Past Drug Use History: Marijuana General Exam - General Exam Comments Initial Comments: 23-year-old female. Alert and oriented. No significant distress. Limitations: no limitations General appearance: alert, in no apparent distress Head exam: Present: atraumatic, normocephalic, normal inspection Eye exam: Present: normal appearance, PERRL, EOMI. Absent: scleral icterus, conjunctival injection, periorbital swelling ENT exam: Present: normal exam, mucous membranes moist Neck exam: Present: normal inspection. Absent: tenderness, meningismus, lymphadenopathy Respiratory exam: Present: normal lung sounds bilaterally. Absent: respiratory distress, wheezes, rales, rhonchi, stridor Cardiovascular Exam: Present: normal rhythm, tachycardia, normal heart sounds. Absent: regular rate, systolic murmur, diastolic murmur, rubs, gallop, clicks GI/Abdominal exam: Present: soft, normal bowel sounds. Absent: distended, tenderness, guarding, rebound, rigid Extremities exam: Present: normal inspection, full ROM, normal capillary refill. Absent: tenderness, pedal edema, joint swelling, calf tenderness Back exam: Present: normal inspection Neurological exam: Present: alert, oriented X3, CN II-XII intact Psychiatric exam: Present: normal affect, normal mood Course Vital Signs 12/25/18 12/25/18 09:30 11:28 Temperature 98.5 F 100.9 F H Pulse Rate 121 H 98 Respiratory 18 20 Rate Blood Pressure 114/68 97/75 O2 Sat by Pulse 96 97 Oximetry Medical Decision Making - Medical Decision Making 23-year-old female presents multiple symptoms including vomiting and severe cough for 2 days. She has a low-grade temperature 100.1. Given Motrin Tylenol Toradol. IV fluids. Lab work was reviewed and unremarkable. Chest x-ray is normal. She could have a significant cough while in ED. Given DuoNeb treatment. We'll treat the Patient for purulent bronchitis and discharged with azithromycin and Medrol Dosepak cough medicine and Zofran. INSTRUCTED to return parameters were discussed. - Lab Data Result diagrams: 12/25/18 10:20 12/25/18 10:20 Lab Results 12/25/18 12/25/18 12/25/18 Range/Units 10:06 10:06 10:06 WBC (3.8-10.6) k/uL RBC (3.80-5.40) m/uL Hgb (11.4-16.0) gm/dL Hct (34.0-46.0) % MCV (80.0-100.0) fL MCH (25.0-35.0) pg MCHC (31.0-37.0) g/dL RDW (11.5-15.5) % Plt Count (150-450) k/uL Neutrophils % % Lymphocytes % % Monocytes % % Eosinophils % % Basophils % % Neutrophils # (1.3-7.7) k/uL Lymphocytes # (1.0-4.8) k/uL Monocytes # (0-1.0) k/uL Eosinophils # (0-0.7) k/uL Basophils # (0-0.2) k/uL Sodium (137-145) mmol/L Potassium (3.5-5.1) mmol/L Chloride (98-107) mmol/L Carbon Dioxide (22-30) mmol/L Anion Gap mmol/L BUN (7-17) mg/dL Creatinine (0.52-1.04) mg/dL Est GFR (CKD-EPI)AfAm (>60 ml/min/1.73 sqM) Est GFR (CKD-EPI)NonAf (>60 ml/min/1.73 sqM) Glucose (74-99) mg/dL Calcium (8.4-10.2) mg/dL Total Bilirubin (0.2-1.3) mg/dL AST (14-36) U/L ALT (9-52) U/L Alkaline Phosphatase (38-126) U/L Total Protein (6.3-8.2) g/dL Albumin (3.5-5.0) g/dL Urine Color Yellow Urine Appearance Clear (Clear) Urine pH 7.0 (5.0-8.0) Ur Specific [place] 1.014 (1.001-1.035) Urine Protein Trace H (Negative) Urine Glucose (UA) Negative (Negative) Urine Ketones 1+ H (Negative) Urine Blood Moderate H (Negative) Urine Nitrite Negative (Negative) Urine Bilirubin Negative (Negative) Urine Urobilinogen <2.0 (<2.0) mg/dL Ur Leukocyte Esterase Negative (Negative) Urine RBC 12 H (0-5) /hpf Urine WBC <1 (0-5) /hpf Ur Squamous Epith Cells 1 (0-4) /hpf Urine Bacteria Occasional H (None) /hpf Urine Mucus Occasional H (None) /hpf Urine HCG, Qual Not Detected (Not Detectd) Influenza Type A RNA Not Detected (Not Detectd) Influenza Type B (PCR) Not Detected (Not Detectd) 12/25/18 12/25/18 Range/Units 10:20 10:20 WBC 9.7 (3.8-10.6) k/uL RBC 5.14 (3.80-5.40) m/uL Hgb 14.9 (11.4-16.0) gm/dL Hct 45.0 (34.0-46.0) % MCV 87.6 (80.0-100.0) fL MCH 28.9 (25.0-35.0) pg MCHC 33.0 (31.0-37.0) g/dL RDW 13.4 (11.5-15.5) % Plt Count 298 (150-450) k/uL Neutrophils % 88 % Lymphocytes % 5 % Monocytes % 5 % Eosinophils % 1 % Basophils % 0 % Neutrophils # 8.5 H (1.3-7.7) k/uL Lymphocytes # 0.5 L (1.0-4.8) k/uL Monocytes # 0.5 (0-1.0) k/uL Eosinophils # 0.1 (0-0.7) k/uL Basophils # 0.0 (0-0.2) k/uL Sodium 140 (137-145) mmol/L Potassium 4.4 (3.5-5.1) mmol/L Chloride 107 (98-107) mmol/L Carbon Dioxide 21 L (22-30) mmol/L Anion Gap 12 mmol/L BUN 11 (7-17) mg/dL Creatinine 0.58 (0.52-1.04) mg/dL Est GFR (CKD-EPI)AfAm >90 (>60 ml/min/1.73 sqM) Est GFR (CKD-EPI)NonAf >90 (>60 ml/min/1.73 sqM) Glucose 102 H (74-99) mg/dL Calcium 10.0 (8.4-10.2) mg/dL Total Bilirubin 0.7 (0.2-1.3) mg/dL AST 23 (14-36) U/L ALT 30 (9-52) U/L Alkaline Phosphatase 79 (38-126) U/L Total Protein 8.1 (6.3-8.2) g/dL Albumin 4.9 (3.5-5.0) g/dL Urine Color Urine Appearance (Clear) Urine pH (5.0-8.0) Ur Specific [place] (1.001-1.035) Urine Protein (Negative) Urine Glucose (UA) (Negative) Urine Ketones (Negative) Urine Blood (Negative) Urine Nitrite (Negative) Urine Bilirubin (Negative) Urine Urobilinogen (<2.0) mg/dL Ur Leukocyte Esterase (Negative) Urine RBC (0-5) /hpf Urine WBC (0-5) /hpf Ur Squamous Epith Cells (0-4) /hpf Urine Bacteria (None) /hpf Urine Mucus (None) /hpf Urine HCG, Qual (Not Detectd) Influenza Type A RNA (Not Detectd) Influenza Type B (PCR) (Not Detectd) - Radiology Data Radiology results: report reviewed Chest x-ray is negative for any acute process. Disposition Clinical Impression: Bronchitis, Nausea & vomiting Disposition: HOME SELF-CARE Condition: Good Instructions (If sedation given, give patient instructions): Acute Bronchitis ( ED), Acute Nausea and Vomiting (ED) Additional Instructions: Patient advised to follow-up with primary care physician. Return to emergency department if any alarming signs or symptoms occur. Use the medications as prescribed. Alternate Motrin and Tylenol for body aches and pain. Prescriptions: Albuterol Inhaler [Ventolin Hfa Inhaler] 1 - 2 puff INHALATION RT-Q6H PRN #1 inhaler PRN Reason: Shortness Of Breath Azithromycin [Zithromax Z-pack] 250 mg PO DIRECTED #6 tab methylPREDNISolone Dose Pack [Medrol Dose Pack] 4 mg PO DIRECTED #21 package Ondansetron [Zofran] 4 mg PO Q8HR PRN #12 tab PRN Reason: Nausea Is patient prescribed a controlled substance at d/c from ED?: No Referrals: [facility] [Primary Care Provider] - 1-2 days Time of Disposition: 11:40
[2018-12-25 10:26] LABS: Appearance,Urine Clear (Clear); Bacteria,Urine Occasional /hpf; Bilirubin,Urine Negative (Negative); Blood,Urine Moderate (Negative); Color,Urine Yellow; Glucose,Urine (UA) Negative (Negative); Ketones,Urine 1+ (Negative); Leukocyte Esterase,Urine Negative (Negative); Mucus,Urine Occasional /hpf; Nitrite,Urine Negative (Negative); Protein,Urine Trace (Negative); RBC,Urine 12 /hpf (0-5); Specific Gravity,Urine 1.014 (1.001-1.035); Squamous Epithelial Cell,Urine 1 /hpf (0-4); Urobilinogen,Urine <2.0 mg/dL (<2.0)
[2018-12-25 10:43] LABS: Basophils % (A) 0 %; Eosinophils # (A) 0.1 k/uL (0-0.7); Eosinophils % (A) 1 %; HGB 14.9 gm/dL (11.4-16.0); Lymphocytes # (A) 0.5 k/uL (1.0-4.8); Lymphocytes % (A) 5 %; MCH 28.9 pg (25.0-35.0); MCV 87.6 fL (80.0-100.0); Mean Platelet Volume 6.4; Monocytes # (A) 0.5 k/uL (0-1.0); Monocytes % (A) 5 %; Neutrophils # (A) 8.5 k/uL (1.3-7.7); Neutrophils % (A) 88 %; Platelet Count 298 k/uL (150-450); RBC 5.14 m/uL (3.80-5.40); RDW 13.4 % (11.5-15.5); WBC 9.7 k/uL (3.8-10.6)
--- NOTE | 2018-12-25 10:48 | XR ---
EXAMINATION TYPE: XR chest 2V DATE OF EXAM: 12/25/2018 COMPARISON: 05/26/2018 TECHNIQUE: PA and lateral views submitted. HISTORY: Cough FINDINGS: The lungs are clear and there is no pneumothorax, pleural effusion, or focal pneumonia. IMPRESSION: 1. No acute process.
[2018-12-25 11:09] LABS: ALT 30 U/L (9-52); AST 23 U/L (14-36); Albumin 4.9 g/dL (3.5-5.0); Alkaline Phosphatase 79 U/L (38-126); Anion Gap 12 mmol/L; Blood Urea Nitrogen 11 mg/dL (7-17); Carbon Dioxide 21 mmol/L (22-30); Chloride 107 mmol/L (98-107); Glucose 102 mg/dL (74-99); Potassium 4.4 mmol/L (3.5-5.1); Sodium 140 mmol/L (137-145); Total Bilirubin 0.7 mg/dL (0.2-1.3); Total Protein 8.1 g/dL (6.3-8.2)
[2018-12-25] MEDS ORDERED: IPRATROPIUM-ALBUTEROL 3 ML NEB INHALATION STA (11:16)
[2018-12-25 12:37] VITALS: BP 98/44; PULSE 105; RESP 18; TEMP 99.9
== END 2018-12-25 12:37 | disposition home or self-care (01) ==
LOC: EC 09:27
DX: J40 Bronchitis, not specified as acute or chronic (principal); R11.2 Nausea with vomiting, unspecified; R53.1 Weakness; F41.9 Anxiety disorder, unspecified; F32.9 Major depressive disorder, single episode, unspecified; F17.200 Nicotine dependence, unspecified, uncomplicated; Z79.51 Long term (current) use of inhaled steroids; Z79.1 Long term (current) use of non-steroidal anti-inflammatories (NSAID); Z79.899 Other long term (current) drug therapy; Z88.0 Allergy status to penicillin
CPT/HCPCS: 36415; 71046; 80053; 81001; 81025; 85025; 87502; 94640; 96361; 96374; 96375; 99285

== ENCOUNTER 2019-09-24 22:33 | Emergency (ER) | payer BC, OTHER ==
[2019-09-24 22:40] VITALS: TEMP 98.1
[2019-09-24] MEDS ORDERED: DIPH,PERTUS(ACELL)TETVAC-LF 0.5 ML VIAL IM ONE (22:47)
[2019-09-24] MEDS ORDERED: WATER FOR IRRIG, STERILE 1,000 ML BTL IRRIGATION ONE (22:52)
[2019-09-24] MEDS ORDERED: LIDOCAINE 1% INJ 10MG/ML (20 ML MDV) SQ STA (22:52)
--- NOTE | 2019-09-24 23:07 | XR ---
EXAMINATION TYPE: XR wrist complete RT DATE OF EXAM: 09/24/2019 COMPARISON: NONE HISTORY: Wrist pain TECHNIQUE: 4 views FINDINGS: There is no sign of fracture nor dislocation. Carpal bones are intact. Joint spaces are nor mal. IMPRESSION: Negative right wrist exam.
--- NOTE | 2019-09-24 23:09 | XR ---
EXAMINATION TYPE: XR elbow complete RT DATE OF EXAM: 09/24/2019 COMPARISON: NONE HISTORY: Pain TECHNIQUE: 3 views FINDINGS: There is soft tissue calcification around the medial humeral condyle consistent with old in jury. I see no acute fracture nor dislocation. There is no sign of joint effusion. Joint spaces are f airly normal. There are small superficial cyst densities posterior to the olecranon process that coul d be a foreign bodies.. IMPRESSION: No fracture. Possible posterior foreign bodies..
--- NOTE | 2019-09-24 23:10 | XR ---
EXAMINATION TYPE: XR knee 4V RT DATE OF EXAM: 09/24/2019 COMPARISON: NONE HISTORY: Pain TECHNIQUE: 4 views FINDINGS: There is no evidence of fracture nor dislocation. Joint spaces are normal. There is some th ickening of the proximal fibula that could relate to an old injury. There is no evidence of joint eff usion. IMPRESSION: No acute abnormality of the right knee.
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
--- NOTE | 2019-09-24 23:32 | ED ---
Disposition Clinical Impression: Fall, Laceration Disposition: HOME SELF-CARE Condition: Stable Instructions (If sedation given, give patient instructions): Laceration (ED) Additional Instructions: Patient to adhere to previously discussed treatment plan and will take medication(s) as directed. Patient to follow up with PCP in 1-2 days. Patient to return to ED if symptoms do not improve. Please return for suture removal: Hand: 7-10 days Face: 5 days Chest/abdomen: 12-14 days Extremities: 7-10 days Scalp: 7 days Eyebrow: 5-7 days Foot/sole: 12-14 days Please monitor for signs and symptoms of infection including: redness, warmth, drainage, discharge. Please return to ED if these signs or symptoms occur, new signs or symptoms develop or if condition worsens in anyway. Is patient prescribed a controlled substance at d/c from ED?: No Referrals: None,Stated [Primary Care Provider] - 1-2 days Ga Garcia DO [Medical Doctor] - 1-2 days
[2019-09-24 23:50] VITALS: BP 132/65; PULSE 88; RESP 16
== END 2019-09-24 23:45 | disposition home or self-care (01) ==
LOC: EC 22:33
DX: S81.011A Laceration without foreign body, right knee, initial encounter (principal); Z23 Encounter for immunization; F17.200 Nicotine dependence, unspecified, uncomplicated; Z88.0 Allergy status to penicillin; V29.9XXA Motorcycle rider (driver) (passenger) injured in unspecified traffic accident, initial encounter; Y92.410 Unspecified street and highway as the place of occurrence of the external cause; Y93.55 Activity, bike riding
CPT/HCPCS: 73080; 73110; 73564; 90715; 99284; 90471; 12001; J2001

== ENCOUNTER 2020-07-23 18:57 | Emergency (ER) | payer BC, OTHER ==
[2020-07-23 19:07] LABS: Glucose,Whole Blood 100 mg/dL (75-99)
[2020-07-23] MEDS ORDERED: SODIUM CHLORIDE 0.9% 1,000 ML IV STA (19:11)
--- NOTE | 2020-07-23 19:20 | ED ---
Seizure HPI - General Chief Complaint: Seizure Stated Complaint: Seizure Time Seen by Provider: 07/23/20 19:00 Source: patient, EMS Mode of arrival: EMS Limitations: altered mental status - History of Present Illness Initial Comments: Patient is a 25-year-old female with past medical history of anxiety and depression who presents emergency room with reported new onset seizure. Patient was at her residence when her roommate found her in bed unresponsive. She moved her to the floor and the patient ended up having tonic-clonic seizure activity. roommate called EMS. Upon EMS arrival the patient had stopped seizing however upon transport the patient had upwards of 6 episodes of seizure-like activity. The patient never returned to her baseline. She was given 10 mg of IM Versed. Patient had a brief period for which she stopped. IV was established. patient began seizing once again and she was given an additional 5 mg IV. Patient's and arrives to the emergency department and states that she has been out of her medications. She is unsure what her medications are. Denies that she's ever had seizure-like activity. No reported alcohol use. No known head trauma. Unknown if patient is . No other alleviating, precipitating or tyrese fying factors - Related Data Home Medications Medication Instructions Recorded Confirmed No Known Home Medications 09/24/19 09/24/19 Allergies Allergy/AdvReac Type Severity Reaction Status Date / Time Penicillins Allergy Anaphylaxis Verified 09/24/19 22:49 Review of Systems ROS Statement: Those systems with pertinent positive or pertinent negative responses have been documented in the HPI. ROS Other: All systems not noted in ROS Statement are negative. Past Medical History Past Medical History: Asthma, GERD/Reflux, Seizure Disorder Additional Past Medical History / Comment(s): Anxiety, Depression History of Any Multi-Drug Resistant Organisms: None Reported Past Surgical History: Adenoidectomy, Orthopedic Surgery, Tonsillectomy Additional Past Surgical History / Comment(s): broken back, ribs Past Psychological History: Anxiety, Bipolar, Depression Past Alcohol Use History: Rare Past Drug Use History: Marijuana General Exam Limitations: altered mental status Head exam: Present: atraumatic, normocephalic, normal inspection Eye exam: Present: normal appearance, PERRL, EOMI. Absent: scleral icterus, conjunctival injection, periorbital swelling ENT exam: Present: normal exam, mucous membranes moist, other (no tongue biting) Neck exam: Present: normal inspection. Absent: tenderness, meningismus, lymphadenopathy Respiratory exam: Present: normal lung sounds bilaterally. Absent: respiratory distress, wheezes, rales, rhonchi, stridor Cardiovascular Exam: Present: normal rhythm, tachycardia GI/Abdominal exam: Present: soft, normal bowel sounds. Absent: distended, tenderness, guarding, rebound, rigid Extremities exam: Present: normal inspection, full ROM, normal capillary refill. Absent: tenderness, pedal edema, joint swelling, calf tenderness Neurological exam: Present: altered, other (sedated. Opens eyes to verbal command. Follows commands. ) Skin exam: Present: warm, dry, intact, normal color. Absent: rash Course Vital Signs 07/23/20 07/23/20 18:59 21:57 Temperature 98.7 F 98.4 F Pulse Rate 107 H 94 Respiratory 16 18 Rate Blood Pressure 124/87 116/79 O2 Sat by Pulse 96 99 Oximetry Medical Decision Making - Medical Decision Making Upon arrival the patient is placed in trauma 1. A thorough physical exam is performed. Patient is sedated however arousable to verbal stimuli. No further seizure-like activity. Laboratory studies were conducted. Patient provides a urine sample. She is sent over for a CT of her brain which demonstrates no acute intracranial process. I did load her with a gram of Keppra. Recommend he transferred to a facility with neurologic capabilities. Patient will be transferred to [facility] for which the patient did agree to. Discussed the case with Dr. Stephens who was accepting of the patient's transfer - Lab Data Result diagrams: 07/23/20 19:16 07/23/20 19:16 Lab Results 07/23/20 07/23/20 07/23/20 Range/Units 19:04 19:16 19:16 WBC 11.9 H (3.8-10.6) k/uL RBC 5.03 (3.80-5.40) m/uL Hgb 14.9 (11.4-16.0) gm/dL Hct 44.7 (34.0-46.0) % MCV 88.8 (80.0-100.0) fL MCH 29.6 (25.0-35.0) pg MCHC 33.3 (31.0-37.0) g/dL RDW 13.0 (11.5-15.5) % Plt Count 354 (150-450) k/uL Neutrophils % 61 % Lymphocytes % 28 % Monocytes % 5 % Eosinophils % 3 % Basophils % 1 % Neutrophils # 7.3 (1.3-7.7) k/uL Lymphocytes # 3.3 (1.0-4.8) k/uL Monocytes # 0.6 (0-1.0) k/uL Eosinophils # 0.4 (0-0.7) k/uL Basophils # 0.1 (0-0.2) k/uL Sodium (137-145) mmol/L Potassium (3.5-5.1) mmol/L Chloride (98-107) mmol/L Carbon Dioxide (22-30) mmol/L Anion Gap mmol/L BUN (7-17) mg/dL Creatinine (0.52-1.04) mg/dL Est GFR (CKD-EPI)AfAm (>60 ml/min/1.73 sqM) Est GFR (CKD-EPI)NonAf (>60 ml/min/1.73 sqM) Glucose (74-99) mg/dL POC Glucose (mg/dL) 100 H (75-99) mg/dL POC Glu Floor Trader ID Bowling, Herminia Plasma Lactic Acid Richard (0.7-2.0) mmol/L Calcium (8.4-10.2) mg/dL Total Bilirubin (0.2-1.3) mg/dL AST (14-36) U/L ALT (4-34) U/L Alkaline Phosphatase (38-126) U/L Total Protein (6.3-8.2) g/dL Albumin (3.5-5.0) g/dL Urine Color Yellow Urine Appearance Clear (Clear) Urine pH 6.0 (5.0-8.0) Ur Specific [place] 1.024 (1.001-1.035) Urine Protein Negative (Negative) Urine Glucose (UA) Negative (Negative) Urine Ketones Negative (Negative) Urine Blood Small H (Negative) Urine Nitrite Negative (Negative) Urine Bilirubin Negative (Negative) Urine Urobilinogen <2.0 (<2.0) mg/dL Ur Leukocyte Esterase Negative (Negative) Urine RBC 8 H (0-5) /hpf Urine WBC <1 (0-5) /hpf Ur Squamous Epith Cells 1 (0-4) /hpf Urine Mucus Occasional H (None) /hpf Urine HCG, Qual (Not Detectd) Salicylates mg/dL Urine Opiates Screen Not Detected (NotDetected) Ur Oxycodone Screen Not Detected (NotDetected) Urine Methadone Screen Not Detected (NotDetected) Ur Propoxyphene Screen Not Detected (NotDetected) Acetaminophen ug/mL Ur Barbiturates Screen Not Detected (NotDetected) U Tricyclic Antidepress Not Detected (NotDetected) Ur Phencyclidine Scrn Not Detected (NotDetected) Ur Amphetamines Screen Not Detected (NotDetected) U Methamphetamines Scrn Not Detected (NotDetected) U Benzodiazepines Scrn Not Detected (NotDetected) Urine Cocaine Screen Not Detected (NotDetected) U Marijuana (THC) Screen Detected H (NotDetected) Serum Alcohol mg/dL 07/23/20 07/23/20 07/23/20 Range/Units 19:16 19:16 19:16 WBC (3.8-10.6) k/uL RBC (3.80-5.40) m/uL Hgb (11.4-16.0) gm/dL Hct (34.0-46.0) % MCV (80.0-100.0) fL MCH (25.0-35.0) pg MCHC (31.0-37.0) g/dL RDW (11.5-15.5) % Plt Count (150-450) k/uL Neutrophils % % Lymphocytes % % Monocytes % % Eosinophils % % Basophils % % Neutrophils # (1.3-7.7) k/uL Lymphocytes # (1.0-4.8) k/uL Monocytes # (0-1.0) k/uL Eosinophils # (0-0.7) k/uL Basophils # (0-0.2) k/uL Sodium 138 (137-145) mmol/L Potassium 4.8 (3.5-5.1) mmol/L Chloride 108 H (98-107) mmol/L Carbon Dioxide 21 L (22-30) mmol/L Anion Gap 9 mmol/L BUN 10 (7-17) mg/dL Creatinine 0.58 (0.52-1.04) mg/dL Est GFR (CKD-EPI)AfAm >90 (>60 ml/min/1.73 sqM) Est GFR (CKD-EPI)NonAf >90 (>60 ml/min/1.73 sqM) Glucose 92 (74-99) mg/dL POC Glucose (mg/dL) (75-99) mg/dL POC Glu Floor Trader ID Plasma Lactic Acid Richard 1.4 (0.7-2.0) mmol/L Calcium 9.4 (8.4-10.2) mg/dL Total Bilirubin 0.8 (0.2-1.3) mg/dL AST 39 H (14-36) U/L ALT 18 (4-34) U/L Alkaline Phosphatase 61 (38-126) U/L Total Protein 7.6 (6.3-8.2) g/dL Albumin 4.6 (3.5-5.0) g/dL Urine Color Urine Appearance (Clear) Urine pH (5.0-8.0) Ur Specific [place] (1.001-1.035) Urine Protein (Negative) Urine Glucose (UA) (Negative) Urine Ketones (Negative) Urine Blood (Negative) Urine Nitrite (Negative) Urine Bilirubin (Negative) Urine Urobilinogen (<2.0) mg/dL Ur Leukocyte Esterase (Negative) Urine RBC (0-5) /hpf Urine WBC (0-5) /hpf Ur Squamous Epith Cells (0-4) /hpf Urine Mucus (None) /hpf Urine HCG, Qual Not Detected (Not Detectd) Salicylates <1.0 mg/dL Urine Opiates Screen (NotDetected) Ur Oxycodone Screen (NotDetected) Urine Methadone Screen (NotDetected) Ur Propoxyphene Screen (NotDetected) Acetaminophen <10.0 ug/mL Ur Barbiturates Screen (NotDetected) U Tricyclic Antidepress (NotDetected) Ur Phencyclidine Scrn (NotDetected) Ur Amphetamines Screen (NotDetected) U Methamphetamines Scrn (NotDetected) U Benzodiazepines Scrn (NotDetected) Urine Cocaine Screen (NotDetected) U Marijuana (THC) Screen (NotDetected) Serum Alcohol <10 mg/dL - EKG Data EKG Comments: EKG demonstrates a sinus tachycardia with a ventricular rate of 104. DC interval 144. QRS 84. QTC 452 Disposition Clinical Impression: New onset seizure Disposition: OTHER INSTITUTION NOT DEFINED Condition: Stable Is patient prescribed a controlled substance at d/c from ED?: No Referrals: None,Stated [Primary Care Provider] - 1-2 days Time of Disposition: 21:31 - Out of Hospital Transfer - Req. Specs Out of Hospital Transfer - Requested Specifics: Other Emergency Center ([facility])
--- NOTE | 2020-07-23 19:33 | CT ---
EXAMINATION TYPE: CT brain wo con DATE OF EXAM: 07/23/2020 COMPARISON: 02/27/2017 INDICATION: seizure DLP: 1099.4 mGycm, Automated exposure control for dose reduction was used. CONTRAST: None CT of the brain is performed utilizing 3 mm thick sections through the posterior fossa and 3 mm thick sections through the remaining calvarium. Study is performed within 24 hours of arrival to the hosp [facility]. No abnormal hyperdensity is present to suggest an acute intracranial hemorrhage. No mass lesion is evident. No acute infarcts are evident. Ventricles and sulci are appropriate for the patient age. Paranasal sinuses and mastoid air cells within the [id number] are clear. IMPRESSIONS: 1. Normal CT Brain
[2020-07-23 19:37] LABS: Basophils # (A) 0.1 k/uL (0-0.2); Basophils % (A) 1 %; Eosinophils # (A) 0.4 k/uL (0-0.7); Eosinophils % (A) 3 %; HCT 44.7 % (34.0-46.0); HGB 14.9 gm/dL (11.4-16.0); Lymphocytes # (A) 3.3 k/uL (1.0-4.8); Lymphocytes % (A) 28 %; MCH 29.6 pg (25.0-35.0); MCHC 33.3 g/dL (31.0-37.0); MCV 88.8 fL (80.0-100.0); Mean Platelet Volume 7.2; Monocytes # (A) 0.6 k/uL (0-1.0); Monocytes % (A) 5 %; Neutrophils # (A) 7.3 k/uL (1.3-7.7); Neutrophils % (A) 61 %; Platelet Count 354 k/uL (150-450); RBC 5.03 m/uL (3.80-5.40); WBC 11.9 k/uL (3.8-10.6)
[2020-07-23 19:55] LABS: Appearance,Urine Clear (Clear); Bilirubin,Urine Negative (Negative); Blood,Urine Small (Negative); Color,Urine Yellow; Glucose,Urine (UA) Negative (Negative); Ketones,Urine Negative (Negative); Leukocyte Esterase,Urine Negative (Negative); Mucus,Urine Occasional /hpf; Nitrite,Urine Negative (Negative); Protein,Urine Negative (Negative); RBC,Urine 8 /hpf (0-5); Specific Gravity,Urine 1.024 (1.001-1.035); Squamous Epithelial Cell,Urine 1 /hpf (0-4); Urobilinogen,Urine <2.0 mg/dL (<2.0); WBC,Urine <1 /hpf (0-5)
[2020-07-23 20:06] LABS: Amphetamine Screen,Urine Not Detected (NotDetected); Barbiturate Screen,Urine Not Detected (NotDetected); Benzodiazepines Screen,Urine Not Detected (NotDetected); Cocaine Screen,Urine Not Detected (NotDetected); Methadone Screen, Urine Not Detected (NotDetected); Opiate Screen,Urine Not Detected (NotDetected); Oxycodone Screen, Urine Not Detected (NotDetected); Phencyclidine Screen,Urine Not Detected (NotDetected); Tricyclic Antidepressant,Urine Not Detected (NotDetected); Urn Cannabinoid Scrn Detected (NotDetected)
[2020-07-23 20:08] LABS: ALT 18 U/L (4-34); AST 39 U/L (14-36); Acetaminophen <10.0 ug/mL; African American GFR (CKD) >90 (>60 ml/min/1.73 sqM); Albumin 4.6 g/dL (3.5-5.0); Alcohol <10 mg/dL; Alkaline Phosphatase 61 U/L (38-126); Anion Gap 9 mmol/L; Blood Urea Nitrogen 10 mg/dL (7-17); Calcium 9.4 mg/dL (8.4-10.2); Carbon Dioxide 21 mmol/L (22-30); Chloride 108 mmol/L (98-107); Glucose 92 mg/dL (74-99); Non-African American GFR(CKD) >90 (>60 ml/min/1.73 sqM); Potassium 4.8 mmol/L (3.5-5.1); Salicylate <1.0 mg/dL; Sodium 138 mmol/L (137-145); Total Bilirubin 0.8 mg/dL (0.2-1.3); Total Protein 7.6 g/dL (6.3-8.2)
[2020-07-23] MEDS ORDERED: levETIRAcetam IV 500 MG in SODIUM CHLORIDE 0.9% 100 ML IVPB STA (20:41)
[2020-07-23 21:58] VITALS: BP 116/79; PULSE 94; RESP 18; TEMP 98.4
[2020-07-23] MEDS ORDERED: NICOTINE 21MG/24HR PATCH TRANSDERM STA (22:15)
== END 2020-07-23 22:28 | disposition other institution (70) ==
LOC: EC 18:57
DX: G40.909 Epilepsy, unspecified, not intractable, without status epilepticus (principal); Z88.0 Allergy status to penicillin
CPT/HCPCS: 36415; 93005; 80053; 83605; 85025; 81001; 81025; 80306; 83520; 70450; 99285; 96365; 96361 ×2; G0480 ×2; S4990; J1953; 80320; 80329

== ENCOUNTER → 2020-08-03 | Outpatient (CLI) | payer OTHER ==
--- NOTE | 2020-08-03 12:42 | P.STRESS ---
- Stress Test Note Stress Test Results/Findings: Exam Performed: stress test Exam Date: 08/03/20 Reason for Exam: SYNCOPE, SHORT OF BREATH Height: 5 ft 6 in Weight: 97.069 kg Protocol: ARIEL Stage: I Duration of Exercise: 2:29 Resting Heart Rate: 88 Resting Blood Pressure: 107/68 Maximum Achieved Heart Rate: 118 Maximum Achieved Blood Pressure: 140/120 85% PMHR: 166 100% PMHR: 195 METS: 3.8 Technologist Comment: Stress Test Results/Findings: This is a 25-year-old female being evaluated for symptoms of shortness of breath and syncope. Patient has history of palpitations and also smoking history. This patient walked on the Ariel protocol for a total duration of 2 minutes. Patient's blood pressure at rest is 107/68 with pulse rate of 88. Baseline EKG showed sinus rhythm with normal ID performed. QRS duration. Patient stopped walking on the treadmill after 2 minutes. Because patient cannot walk and became short of breath and dizzy. EKG taken during and after x-ray did not reveal any significant changes from the baseline. Her peak heart rate was 118 with a blood pressure 140 11/25/2019. Patient is issued only 60% of the predicted heart rate. Final impression: #1. Limited excess capacity #2. Nondiagnostic regular stress test #3. Patient stopped the exercise because of shortness of breath and dizziness
--- NOTE | 2020-08-03 13:32 | EST ---
Stress Test Results/Findings: Exam Performed: stress test Exam Date: 08/03/20 Reason for Exam: SYNCOPE, SHORT OF BREATH Height: 5 ft 6 in Weight: 97.069 kg Protocol: ARIEL Stage: I Duration of Exercise: 2:29 Resting Heart Rate: 88 Resting Blood Pressure: 107/68 Maximum Achieved Heart Rate: 118 Maximum Achieved Blood Pressure: 140/120 85% PMHR: 166 100% PMHR: 195 METS: 3.8 Technologist Comment: Stress Test Results/Findings: This is a 25-year-old female being evaluated for symptoms of shortness of breath and syncope. Patient has history of palpitations and also smoking history. This patient walked on the Ariel protocol for a total duration of 2 minutes. Patient's blood pressure at rest is 107/68 with pulse rate of 88. Baseline EKG showed sinus rhythm with normal OK performed. QRS duration. Patient stopped walking on the treadmill after 2 minutes. Because patient cannot walk and became short of breath and dizzy. EKG taken during and after x-ray did not reveal any significant changes from the baseline. Her peak heart rate was 118 with a blood pressure 140 11/25/2019. Patient is issued only 60% of the predicted heart rate. Final impression: #1. Limited excess capacity #2. Nondiagnostic regular stress test #3. Patient stopped the exercise because of shortness of breath and dizziness MTDD
== END | disposition home or self-care (01) ==
LOC: RADNMMAIN 08:29
PROVIDERS: ATTEND Family Medicine
DX: R55 Syncope and collapse (principal); R06.02 Shortness of breath; R07.89 Other chest pain; Z88.0 Allergy status to penicillin
CPT/HCPCS: 93017

== ENCOUNTER → 2020-09-28 | Outpatient (CLI) | payer OTHER ==
--- NOTE | 2020-09-28 18:15 | MR ---
EXAMINATION TYPE: MR angio head wo con DATE OF EXAM: 09/28/2020 COMPARISON: None HISTORY: Seizure history CONTRAST: None TECHNIQUE: Multiplanar multiecho imaging on a 3.0 Mila magnet is performed through the quileute of Matt lis. 3-D [id number] imaging is performed. Source images are reviewed on the computer in the axi al plane. Reconstructed images rotating on the computer are reviewed. FINDINGS: The internal carotid arteries bifurcate normally into A1 and M1 segments. The A2 segments are normal. Middle cerebral artery branches are normal. Anterior communicating artery is patent. The right posterior communicating artery is absent. The left posterior communicating artery is absent. Vertebrobasilar arteries within the [id number] are normal. Posterior cerebral vasculature is norm al. No suspicious aneurysm or aneurysmal dilatation is evident. No obstructions are identified. No significant flow-limiting stenosis is evident. IMPRESSIONS: 1. NORMAL MRA [place].
--- NOTE | 2020-09-28 19:43 | MR ---
EXAMINATION TYPE: MR brain wo/w con DATE OF EXAM: 09/28/2020 COMPARISON: CT brain 07/23/2020 HISTORY: Headaches, seizures, family history of brain tumor CONTRAST: Performed utilizing 9.5 ml mL intravenous Gadavist gadolinium contrast. TECHNIQUE: Multiplanar, multiecho imaging on a 3.0 Mila magnet is performed through the brain. Stud y is performed within 24 hours of arrival to the hospital. The craniovertebral junction is normal. The pituitary is normal. Diffusion-weighted imaging is performed. No abnormal hyperintensity is present to suggest an acute i ntracranial infarct or acute ischemic change. Signal through the brain is normal. Temporal lobes are symmetrical. Ventricles and sulci are appropriate for the patient age. IMPRESSIONS: 1. Normal pre and postcontrast MRI brain
== END | disposition home or self-care (01) ==
LOC: RADMRIMAIN 16:11
PROVIDERS: ATTEND Family Medicine
DX: D49.6 Neoplasm of unspecified behavior of brain (principal); R56.9 Unspecified convulsions; Z84.89 Family history of other specified conditions
CPT/HCPCS: 70544; 70553; A9585

== ENCOUNTER → 2020-10-13 | Outpatient (CLI) | payer OTHER | END | disposition home or self-care (01) | LOC: LABWHC1 08:51 | PROVIDERS: ATTEND Family Medicine | DX: Z20.828 Contact with and (suspected) exposure to other viral communicable diseases (principal) ==

== ENCOUNTER 2020-11-06 17:15 | Emergency (ER) | payer OTHER ==
[2020-11-06 17:30] VITALS: TEMP 99.1
[2020-11-06] MEDS ORDERED: SODIUM CHLORIDE 0.9% 500 ML 500 ML IV STA (17:38)
[2020-11-06 18:27] VITALS: PULSE 86
--- NOTE | 2020-11-06 18:28 | CT ---
EXAMINATION TYPE: CT brain cspine wo con DATE OF EXAM: 11/06/2020 COMPARISON: 07/23/2020. HISTORY: Seizure with head injury CT DLP: 1607.9 mGycm Automated exposure control for dose reduction was used. TECHNIQUE: CT scan of the head and cervical spine are performed without contrast. FINDINGS: There is no acute intracranial hemorrhage, mass effect, or midline shift identified. The ventricles and sulci are within normal limits in size. The globes are intact and the visualized sin uses are clear. Cervical spine is visualized in its entirety from C1 through upper thoracic levels and demonstrates s atisfactory alignment without evidence of acute fracture or dislocation. Prevertebral soft tissue ap pears within normal limits. The C1-C2 articulation is unremarkable. IMPRESSION: 1. There is no acute fracture or dislocation evident in the cervical spine. 2. No acute intracranial hemorrhage, mass effect, or midline shift is seen.
[2020-11-06 18:29] LABS: Basophils # (A) 0.1 k/uL (0-0.2); Basophils % (A) 1 %; Eosinophils # (A) 0.3 k/uL (0-0.7); Eosinophils % (A) 3 %; HCT 45.1 % (34.0-46.0); Lymphocytes # (A) 2.5 k/uL (1.0-4.8); Lymphocytes % (A) 21 %; MCH 29.6 pg (25.0-35.0); MCHC 33.3 g/dL (31.0-37.0); MCV 88.8 fL (80.0-100.0); Mean Platelet Volume 6.4; Monocytes # (A) 0.7 k/uL (0-1.0); Monocytes % (A) 6 %; Neutrophils # (A) 7.8 k/uL (1.3-7.7); Neutrophils % (A) 68 %; Platelet Count 344 k/uL (150-450); RBC 5.08 m/uL (3.80-5.40); RDW 13.2 % (11.5-15.5); WBC 11.5 k/uL (3.8-10.6)
[2020-11-06 18:43] LABS: ALT 14 U/L (4-34); AST 27 U/L (14-36); African American GFR (CKD) >90 (>60 ml/min/1.73 sqM); Albumin 4.1 g/dL (3.5-5.0); Alkaline Phosphatase 70 U/L (38-126); Anion Gap 6 mmol/L; Blood Urea Nitrogen 9 mg/dL (7-17); Calcium 9.1 mg/dL (8.4-10.2); Carbon Dioxide 24 mmol/L (22-30); Chloride 108 mmol/L (98-107); Glucose 75 mg/dL (74-99); Non-African American GFR(CKD) >90 (>60 ml/min/1.73 sqM); Potassium 4.5 mmol/L (3.5-5.1); Sodium 138 mmol/L (137-145); Total Bilirubin 0.4 mg/dL (0.2-1.3)
--- NOTE | 2020-11-06 18:44 | ED ---
Altered Mental Status HPI - General Chief Complaint: Altered Mental Status Stated Complaint: Seizure Source: EMS Mode of arrival: EMS Limitations: no limitations - History of Present Illness Initial Comments: 25yo female presenting for cc of seizure, fall, left shoulder pain. patient states that she has been being owrked up for seizures x a few months. States she has had EEG, MRA and MRI without findings. she states she was told that they could be absent seizures. today she states she was helping her grandma roll cigarettes when she felt nauseated and off. she states she thought maybe a seizure was coming on. she states that the last thing she remembers. pt hernando called EMS for suspected seizure. pt AAOx4 on arrival. she does not appear in distress. - Related Data Home Medications Medication Instructions Recorded Confirmed Albuterol Sulfate [Proair Hfa] 2 puff INHALATION RT-BID PRN 11/06/20 11/06/20 Budesonide/Formoterol Fumarate 2 puff INHALATION RT-BID 11/06/20 11/06/20 [Symbicort 80-4.5 Mcg Inhaler] Citalopram Hydrobromide [CeleXA] 20 mg PO HS 11/06/20 11/06/20 Divalproex Sodium [Depakote] 1,000 mg PO BID 11/06/20 11/06/20 HYDROcodone/APAP 7.5-325MG [[place] 1 tab PO Q6H PRN 11/06/20 11/06/20 7.5-325] Ibuprofen [Motrin] 800 mg PO QID PRN 11/06/20 11/06/20 Omeprazole 20 mg PO DAILY 11/06/20 11/06/20 busPIRone HCl [Buspar] 10 mg PO TID PRN 11/06/20 11/06/20 traZODone HCL 100 mg PO HS 11/06/20 11/06/20 Allergies Allergy/AdvReac Type Severity Reaction Status Date / Time Penicillins Allergy Anaphylaxis Verified 11/06/20 19:04 Review of Systems ROS Statement: Those systems with pertinent positive or pertinent negative responses have been documented in the HPI. ROS Other: All systems not noted in ROS Statement are negative. Past Medical History Past Medical History: Asthma, GERD/Reflux, Seizure Disorder Additional Past Medical History / Comment(s): Anxiety, Depression History of Any Multi-Drug Resistant Organisms: None Reported Past Surgical History: Adenoidectomy, Orthopedic Surgery, Tonsillectomy Additional Past Surgical History / Comment(s): broken back, ribs Past Psychological History: Anxiety, Bipolar, Depression Smoking Status: Current every day smoker Past Alcohol Use History: Rare Past Drug Use History: Marijuana General Exam - General Exam Comments Initial Comments: General: The patient is awake and alert, in no distress Eye: +3 mm pupils are equal, round and reactive to light, extra-ocular movements are intact. No nystagmus. There is normal conjunctiva bilaterally. No signs of icterus. Ears, nose, mouth and throat: There are moist mucous membranes and no oral lesions. Neck: The neck is supple, there is no tenderness or JVD. Cardiovascular: There is a regular rate and rhythm. No murmur, rub or gallop is appreciated. Respiratory: Lungs are clear to auscultation, respirations are non-labored, breath sounds are equal. No wheezes, stridor, rales, or rhonchi. Gastrointestinal: Soft, non-distended, non-tender abdomen without masses or organomegaly noted. There is no rebound or guarding present. Musculoskeletal: pain to palpation of the left shoulder,full ROM mild tenderness. no lacerations/abrasion. Normal ROM, no tenderness of the LE b/l. Strength 5/5 of the UE and LE b/l. Sensation intact of the UE and LE b/l. Radial pulses equal bilaterally 2+. Neurological: A&O x 3. CN II-XII intact, There are no obvious motor or sensory deficits. Coordination appears grossly intact. Speech is normal. No pronator drift. Skin: Skin is warm and dry and no rashes or lesions are noted. Psychiatric: Cooperative, appropriate mood & affect, normal judgment. Limitations: no limitations Course Vital Signs 11/06/20 11/06/20 17:26 18:25 Temperature 99.1 F Pulse Rate 94 86 Respiratory 16 18 Rate Blood Pressure 136/80 110/70 O2 Sat by Pulse 94 L 97 Oximetry Medical Decision Making - Medical Decision Making 25-year-old presents today for chief complaint of seizure. fall. XR, CT (-). MRA no hx of aneurysm. nursing triage states patient wasnt alert on arrival but upon my history pt was answering all questions aaox4. did not appear altered? pt has no focal neurological deficits. pt shortly after arriving asking for food, facetiming/talking on phone. patient labs stable. ekg no acute changes. denies chest pain SOB. patient case discussed with Dr. West who is agreeable to discharge with pcp and neurology f/u. - Lab Data Result diagrams: 11/06/20 17:52 11/06/20 17:52 Lab Results 11/06/20 11/06/20 Range/Units 17:52 17:52 WBC 11.5 H (3.8-10.6) k/uL RBC 5.08 (3.80-5.40) m/uL Hgb 15.0 (11.4-16.0) gm/dL Hct 45.1 (34.0-46.0) % MCV 88.8 (80.0-100.0) fL MCH 29.6 (25.0-35.0) pg MCHC 33.3 (31.0-37.0) g/dL RDW 13.2 (11.5-15.5) % Plt Count 344 (150-450) k/uL MPV 6.4 Neutrophils % 68 % Lymphocytes % 21 % Monocytes % 6 % Eosinophils % 3 % Basophils % 1 % Neutrophils # 7.8 H (1.3-7.7) k/uL Lymphocytes # 2.5 (1.0-4.8) k/uL Monocytes # 0.7 (0-1.0) k/uL Eosinophils # 0.3 (0-0.7) k/uL Basophils # 0.1 (0-0.2) k/uL Sodium 138 (137-145) mmol/L Potassium 4.5 (3.5-5.1) mmol/L Chloride 108 H (98-107) mmol/L Carbon Dioxide 24 (22-30) mmol/L Anion Gap 6 mmol/L BUN 9 (7-17) mg/dL Creatinine 0.48 L (0.52-1.04) mg/dL Est GFR (CKD-EPI)AfAm >90 (>60 ml/min/1.73 sqM) Est GFR (CKD-EPI)NonAf >90 (>60 ml/min/1.73 sqM) Glucose 75 (74-99) mg/dL Calcium 9.1 (8.4-10.2) mg/dL Total Bilirubin 0.4 (0.2-1.3) mg/dL AST 27 (14-36) U/L ALT 14 (4-34) U/L Alkaline Phosphatase 70 (38-126) U/L Total Protein 7.0 (6.3-8.2) g/dL Albumin 4.1 (3.5-5.0) g/dL Disposition Clinical Impression: Seizure, Left shoulder pain Disposition: HOME SELF-CARE Condition: Good Additional Instructions: Please use medication as discussed. Please follow-up with family doctor in the next 2 days, and neurology as scheduled. No driving x 6 months. Please return to emergency room if the symptoms increase or worsen or for any other concerns. Is patient prescribed a controlled substance at d/c from ED?: No Referrals: Claus Nava MD [Primary Care Provider] - 1-2 days Time of Disposition: 19:17
--- NOTE | 2020-11-06 19:03 | XR ---
EXAMINATION TYPE: XR shoulder complete LT DATE OF EXAM: 11/06/2020 CLINICAL HISTORY: Pain status post fall. TECHNIQUE: 4 views of the left shoulder are obtained. COMPARISON: None. FINDINGS: There is no acute fracture/dislocation evident in the left shoulder. The acromioclavicula r and glenohumeral joint spaces appear within normal limits. The visualized ribs are intact and unre markable. IMPRESSION: There is no acute fracture or dislocation in the left shoulder.
[2020-11-06 19:39] VITALS: BP 120/85; RESP 17
[2020-11-06 19:41] LABS: Amorphous Sediment,Urine Rare /hpf; Appearance,Urine Cloudy (Clear); Bacteria,Urine Many /hpf; Bilirubin,Urine Negative (Negative); Blood,Urine Negative (Negative); Color,Urine Yellow; Glucose,Urine (UA) Negative (Negative); Ketones,Urine Trace (Negative); Leukocyte Esterase,Urine Trace (Negative); Mucus,Urine Rare /hpf; Nitrite,Urine Negative (Negative); PH, Urine 7.5 (5.0-8.0); Protein,Urine Negative (Negative); RBC,Urine 3 /hpf (0-5); Specific Gravity,Urine 1.018 (1.001-1.035); Squamous Epithelial Cell,Urine 8 /hpf (0-4); Urobilinogen,Urine <2.0 mg/dL (<2.0); WBC,Urine 11 /hpf (0-5)
== END 2020-11-06 19:39 | disposition home or self-care (01) ==
LOC: EC 17:15
DX: G40.909 Epilepsy, unspecified, not intractable, without status epilepticus (principal); M25.512 Pain in left shoulder; J45.909 Unspecified asthma, uncomplicated; K21.9 Gastro-esophageal reflux disease without esophagitis; F41.9 Anxiety disorder, unspecified; F31.9 Bipolar disorder, unspecified; F17.200 Nicotine dependence, unspecified, uncomplicated; Z79.51 Long term (current) use of inhaled steroids; Z79.899 Other long term (current) drug therapy; Z88.0 Allergy status to penicillin; Z90.89 Acquired absence of other organs
CPT/HCPCS: 36415; 70450; 72125; 80053; 81001; 81025; 85025; 93005; 96360; 99285

== ENCOUNTER 2020-11-25 00:25 | Emergency (ER) | payer OTHER ==
[2020-11-25 00:51] LABS: Basophils # (A) 0.1 k/uL (0-0.2); Basophils % (A) 1 %; Eosinophils # (A) 0.4 k/uL (0-0.7); Eosinophils % (A) 3 %; HCT 43.9 % (34.0-46.0); HGB 15.1 gm/dL (11.4-16.0); Lymphocytes # (A) 3.7 k/uL (1.0-4.8); Lymphocytes % (A) 30 %; MCH 30.5 pg (25.0-35.0); MCHC 34.4 g/dL (31.0-37.0); MCV 88.6 fL (80.0-100.0); Mean Platelet Volume 6.2; Monocytes # (A) 0.8 k/uL (0-1.0); Monocytes % (A) 7 %; Neutrophils # (A) 7.3 k/uL (1.3-7.7); Neutrophils % (A) 59 %; Platelet Count 308 k/uL (150-450); RBC 4.95 m/uL (3.80-5.40); RDW 13.3 % (11.5-15.5); WBC 12.4 k/uL (3.8-10.6)
[2020-11-25 01:00] LABS: Amphetamine Screen,Urine Not Detected (NotDetected); Barbiturate Screen,Urine Not Detected (NotDetected); Benzodiazepines Screen,Urine Not Detected (NotDetected); Cocaine Screen,Urine Not Detected (NotDetected); Methadone Screen, Urine Not Detected (NotDetected); Opiate Screen,Urine Detected (NotDetected); Oxycodone Screen, Urine Not Detected (NotDetected); Phencyclidine Screen,Urine Not Detected (NotDetected); Tricyclic Antidepressant,Urine Not Detected (NotDetected); Urn Cannabinoid Scrn Detected (NotDetected)
[2020-11-25 01:08] LABS: ALT 19 U/L (4-34); AST 23 U/L (14-36); African American GFR (CKD) >90 (>60 ml/min/1.73 sqM); Albumin 4.1 g/dL (3.5-5.0); Alcohol <10 mg/dL; Alkaline Phosphatase 73 U/L (38-126); Anion Gap 7 mmol/L; Blood Urea Nitrogen 14 mg/dL (7-17); Calcium 9.4 mg/dL (8.4-10.2); Carbon Dioxide 24 mmol/L (22-30); Chloride 106 mmol/L (98-107); Glucose 115 mg/dL (74-99); Non-African American GFR(CKD) >90 (>60 ml/min/1.73 sqM); Potassium 3.5 mmol/L (3.5-5.1); Sodium 137 mmol/L (137-145); Total Bilirubin 0.2 mg/dL (0.2-1.3); Total Protein 7.1 g/dL (6.3-8.2)
[2020-11-25 01:14] LABS: Valproic Acid (Depakene) 98.1 ug/mL
--- NOTE | 2020-11-25 01:41 | ED ---
Seizure HPI - General Chief Complaint: Seizure Stated Complaint: seizures Time Seen by Provider: 11/25/20 00:26 Source: patient, EMS Mode of arrival: EMS Limitations: no limitations - History of Present Illness Initial Comments: This patient is 25-year-old woman who states she has history of absence seizures, currently being treated with Depakote. The patient states that for the past couple of days and especially today she has been having a number of these episodes despite taking her medication as prescribed. The patient states that she sees Dr. Beach as her neurologist though she has not seen him recently. The patient states that she is otherwise feeling well. No fever or chills. No cough, dyspnea, chest or abdominal pain. No change in urination or bowel movements. MD Complaint: seizure Onset/Timin -: hour(s) Description of Episode: loss of consciousness -: second(s) Witnessed: yes - by bystander Trauma: No Seizure History: known seizure disorder Place: home Possible Precipitating Event: none Associated Symptoms: denies other symptoms Treatments Prior to Arrival: none - Related Data Home Medications Medication Instructions Recorded Confirmed Albuterol Sulfate [Proair Hfa] 2 puff INHALATION RT-BID PRN 11/06/20 11/06/20 Budesonide/Formoterol Fumarate 2 puff INHALATION RT-BID 11/06/20 11/06/20 [Symbicort 80-4.5 Mcg Inhaler] Citalopram Hydrobromide [CeleXA] 20 mg PO HS 11/06/20 11/06/20 Divalproex Sodium [Depakote] 1,000 mg PO BID 11/06/20 11/06/20 HYDROcodone/APAP 7.5-325MG [[place] 1 tab PO Q6H PRN 11/06/20 11/06/20 7.5-325] Ibuprofen [Motrin] 800 mg PO QID PRN 11/06/20 11/06/20 Omeprazole 20 mg PO DAILY 11/06/20 11/06/20 busPIRone HCl [Buspar] 10 mg PO TID PRN 11/06/20 11/06/20 traZODone HCL 100 mg PO HS 11/06/20 11/06/20 Previous Rx's Medication Instructions Recorded Ethosuximide 250 mg PO BID #28 capsule 11/25/20 Allergies Allergy/AdvReac Type Severity Reaction Status Date / Time Penicillins Allergy Anaphylaxis Verified 11/25/20 00:35 Review of Systems ROS Statement: Those systems with pertinent positive or pertinent negative responses have been documented in the HPI. ROS Other: All systems not noted in ROS Statement are negative. Constitutional: Denies: fever, chills, weakness Respiratory: Denies: cough, dyspnea Cardiovascular: Denies: chest pain, palpitations, orthopnea, edema Gastrointestinal: Denies: abdominal pain, vomiting, diarrhea Genitourinary: Denies: dysuria, hematuria, abnormal menses Musculoskeletal: Denies: back pain Skin: Denies: rash Neurological: Denies: headache, weakness, numbness, paresthesias, confusion Past Medical History Past Medical History: Asthma, GERD/Reflux, Seizure Disorder Additional Past Medical History / Comment(s): Anxiety, Depression History of Any Multi-Drug Resistant Organisms: None Reported Past Surgical History: Adenoidectomy, Orthopedic Surgery, Tonsillectomy Additional Past Surgical History / Comment(s): broken back, ribs Past Psychological History: Anxiety, Bipolar, Depression Smoking Status: Current every day smoker Past Alcohol Use History: Rare Past Drug Use History: Marijuana General Exam Limitations: no limitations General appearance: alert, in no apparent distress Head exam: Present: atraumatic, normocephalic Eye exam: Present: normal appearance. Absent: scleral icterus, conjunctival injection ENT exam: Present: normal exam Neck exam: Present: normal inspection, full ROM Respiratory exam: Present: normal lung sounds bilaterally. Absent: respiratory distress, wheezes, rales, rhonchi, stridor Cardiovascular Exam: Present: regular rate, normal rhythm, normal heart sounds. Absent: systolic murmur, diastolic murmur, rubs, gallop GI/Abdominal exam: Present: soft. Absent: distended, tenderness, guarding, rebound, rigid, mass Extremities exam: Present: normal inspection, normal capillary refill. Absent: pedal edema, calf tenderness Back exam: Present: normal inspection. Absent: CVA tenderness (R), CVA tenderness (L) Neurological exam: Present: alert, oriented X3, CN II-XII intact. Absent: motor sensory deficit Skin exam: Present: warm, dry, intact, normal color. Absent: rash Course Vital Signs 11/25/20 00:26 Temperature 98.2 F Pulse Rate 103 H Respiratory 18 Rate Blood Pressure 111/71 O2 Sat by Pulse 97 Oximetry Medical Decision Making - Lab Data Result diagrams: 11/25/20 00:46 11/25/20 00:46 Lab Results 11/25/20 11/25/20 11/25/20 Range/Units 00:46 00:46 00:46 WBC 12.4 H (3.8-10.6) k/uL RBC 4.95 (3.80-5.40) m/uL Hgb 15.1 (11.4-16.0) gm/dL Hct 43.9 (34.0-46.0) % MCV 88.6 (80.0-100.0) fL MCH 30.5 (25.0-35.0) pg MCHC 34.4 (31.0-37.0) g/dL RDW 13.3 (11.5-15.5) % Plt Count 308 (150-450) k/uL MPV 6.2 Neutrophils % 59 % Lymphocytes % 30 % Monocytes % 7 % Eosinophils % 3 % Basophils % 1 % Neutrophils # 7.3 (1.3-7.7) k/uL Lymphocytes # 3.7 (1.0-4.8) k/uL Monocytes # 0.8 (0-1.0) k/uL Eosinophils # 0.4 (0-0.7) k/uL Basophils # 0.1 (0-0.2) k/uL Sodium (137-145) mmol/L Potassium (3.5-5.1) mmol/L Chloride (98-107) mmol/L Carbon Dioxide (22-30) mmol/L Anion Gap mmol/L BUN (7-17) mg/dL Creatinine (0.52-1.04) mg/dL Est GFR (CKD-EPI)AfAm (>60 ml/min/1.73 sqM) Est GFR (CKD-EPI)NonAf (>60 ml/min/1.73 sqM) Glucose (74-99) mg/dL Calcium (8.4-10.2) mg/dL Total Bilirubin (0.2-1.3) mg/dL AST (14-36) U/L ALT (4-34) U/L Alkaline Phosphatase (38-126) U/L Total Protein (6.3-8.2) g/dL Albumin (3.5-5.0) g/dL Urine HCG, Qual Not Detected (Not Detectd) Urine Opiates Screen Detected H (NotDetected) Ur Oxycodone Screen Not Detected (NotDetected) Urine Methadone Screen Not Detected (NotDetected) Ur Propoxyphene Screen Not Detected (NotDetected) Ur Barbiturates Screen Not Detected (NotDetected) Valproic Acid ug/mL U Tricyclic Antidepress Not Detected (NotDetected) Ur Phencyclidine Scrn Not Detected (NotDetected) Ur Amphetamines Screen Not Detected (NotDetected) U Methamphetamines Scrn Not Detected (NotDetected) U Benzodiazepines Scrn Not Detected (NotDetected) Urine Cocaine Screen Not Detected (NotDetected) U Marijuana (THC) Screen Detected H (NotDetected) Serum Alcohol mg/dL 11/25/20 Range/Units 00:46 WBC (3.8-10.6) k/uL RBC (3.80-5.40) m/uL Hgb (11.4-16.0) gm/dL Hct (34.0-46.0) % MCV (80.0-100.0) fL MCH (25.0-35.0) pg MCHC (31.0-37.0) g/dL RDW (11.5-15.5) % Plt Count (150-450) k/uL MPV Neutrophils % % Lymphocytes % % Monocytes % % Eosinophils % % Basophils % % Neutrophils # (1.3-7.7) k/uL Lymphocytes # (1.0-4.8) k/uL Monocytes # (0-1.0) k/uL Eosinophils # (0-0.7) k/uL Basophils # (0-0.2) k/uL Sodium 137 (137-145) mmol/L Potassium 3.5 (3.5-5.1) mmol/L Chloride 106 (98-107) mmol/L Carbon Dioxide 24 (22-30) mmol/L Anion Gap 7 mmol/L BUN 14 (7-17) mg/dL Creatinine 0.53 (0.52-1.04) mg/dL Est GFR (CKD-EPI)AfAm >90 (>60 ml/min/1.73 sqM) Est GFR (CKD-EPI)NonAf >90 (>60 ml/min/1.73 sqM) Glucose 115 H (74-99) mg/dL Calcium 9.4 (8.4-10.2) mg/dL Total Bilirubin 0.2 (0.2-1.3) mg/dL AST 23 (14-36) U/L ALT 19 (4-34) U/L Alkaline Phosphatase 73 (38-126) U/L Total Protein 7.1 (6.3-8.2) g/dL Albumin 4.1 (3.5-5.0) g/dL Urine HCG, Qual (Not Detectd) Urine Opiates Screen (NotDetected) Ur Oxycodone Screen (NotDetected) Urine Methadone Screen (NotDetected) Ur Propoxyphene Screen (NotDetected) Ur Barbiturates Screen (NotDetected) Valproic Acid 98.1 ug/mL U Tricyclic Antidepress (NotDetected) Ur Phencyclidine Scrn (NotDetected) Ur Amphetamines Screen (NotDetected) U Methamphetamines Scrn (NotDetected) U Benzodiazepines Scrn (NotDetected) Urine Cocaine Screen (NotDetected) U Marijuana (THC) Screen (NotDetected) Serum Alcohol <10 mg/dL Disposition Clinical Impression: Seizure Disposition: HOME SELF-CARE Condition: Fair Instructions (If sedation given, give patient instructions): Recurrent Seizures in Adults (ED) Prescriptions: Ethosuximide 250 mg PO BID #28 capsule Is patient prescribed a controlled substance at d/c from ED?: No Referrals: Claus Nava MD [Primary Care Provider] - 1-2 days
[2020-11-25 02:05] VITALS: BP 100/53; PULSE 92; RESP 16; TEMP 98.1
== END 2020-11-25 02:04 | disposition home or self-care (01) ==
LOC: EC 00:25
DX: G40.909 Epilepsy, unspecified, not intractable, without status epilepticus (principal); J45.909 Unspecified asthma, uncomplicated; K21.9 Gastro-esophageal reflux disease without esophagitis; F41.9 Anxiety disorder, unspecified; F31.9 Bipolar disorder, unspecified; F17.200 Nicotine dependence, unspecified, uncomplicated; Z79.51 Long term (current) use of inhaled steroids; Z79.899 Other long term (current) drug therapy; Z88.0 Allergy status to penicillin; Z90.89 Acquired absence of other organs
CPT/HCPCS: 36415; 80164; 80053; 85025; 81025; 80306; 99284; G0480; 80320

== ENCOUNTER 2021-06-21 12:32 | Emergency (ER) | payer OTHER ==
--- NOTE | 2021-06-21 12:51 | ED ---
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 Patient states she had one again today. Patient states it started with her feeling a little fuzzy getting a weird taste in her mouth and then she believes she had one episode that she calls them. Patient denies any symptoms currently. Patient denies headache patient denies numbness weakness per patient denies any lightheadedness or dizziness. Patient denies any chest pain palpitations difficulty breathing shortness of breath. Patient denies any abdominal pain. Patient denies any recent vomiting or diarrhea. Patient denies drug use. Patient does not know the names of her medications but states she is still taking them. Patient denies neck pain to me even though it was mentioned triage note - Related Data Home Medications Medication Instructions Recorded Confirmed Albuterol Sulfate [Proair Hfa] 1 - 2 puff INHALATION RT-QID PRN 11/06/20 06/21/21 Budesonide/Formoterol Fumarate 2 puff INHALATION RT-BID 11/06/20 06/21/21 [Symbicort 80-4.5 Mcg Inhaler] Ibuprofen [Motrin] 800 mg PO QID PRN 11/06/20 06/21/21 Dicyclomine HCl 20 mg PO Q6H 06/21/21 06/21/21 Fluticasone Nasal [place] [Flonase 1 spray EA NOSTRIL DAILY 06/21/21 06/21/21 Nasal [place]] Montelukast Sodium [Singulair] 10 mg PO HS 06/21/21 06/21/21 Sertraline HCl [Zoloft] 100 mg PO DAILY 06/21/21 06/21/21 Topiramate [Topamax] 50 mg PO BID 06/21/21 06/21/21 busPIRone HCL 15 mg PO TID PRN 06/21/21 06/21/21 Previous Rx's Medication Instructions Recorded Ethosuximide 250 mg PO BID #28 capsule 11/25/20 Allergies Allergy/AdvReac Type Severity Reaction Status Date / Time Penicillins Allergy Anaphylaxis Verified 06/21/21 13:32 Review of Systems ROS Statement: Those systems with pertinent positive or pertinent negative responses have been documented in the HPI. ROS Other: All systems not noted in ROS Statement are negative. Past Medical History Past Medical History: Asthma, GERD/Reflux, Seizure Disorder Additional Past Medical History / Comment(s): Anxiety, Depression History of Any Multi-Drug Resistant Organisms: None Reported Past Surgical History: Adenoidectomy, Orthopedic Surgery, Tonsillectomy Additional Past Surgical History / Comment(s): broken back, ribs Past Psychological History: Anxiety, Bipolar, Depression Smoking Status: Current every day smoker Past Alcohol Use History: Rare Past Drug Use History: Marijuana General Exam - General Exam Comments Initial Comments: GENERAL: Patient is well-developed and well-nourished. Patient is nontoxic and well- hydrated and is in no acute distress. ENT: Neck is soft and supple. No significant lymphadenopathy is noted. Oropharynx is clear. Moist mucous membranes. Neck has full range of motion without eliciting any pain. Tongue had no signs of injury. EYES: The sclera were anicteric and conjunctiva were pink and moist. Extraocular movements were intact and pupils were equal round and reactive to light. Eyelids were unremarkable. PULMONARY: Unlabored respirations. Good breath sounds bilaterally. No audible rales rhonchi or wheezing was noted. CARDIOVASCULAR: There is a regular rate and rhythm without any murmurs gallops or rubs. Femoral pulses are equal bilaterally ABDOMEN: Soft and nontender with normal bowel sounds. No palpable organomegaly was noted. There is no palpable pulsatile mass. SKIN: Skin is clear with no lesions or rashes and otherwise unremarkable. NEUROLOGIC: Patient is alert and oriented x3. Cranial nerves II through XII are grossly intact. Motor and sensory are also intact. Normal speech, volume and content. Symmetrical smile. MUSCULOSKELETAL: Normal extremities with adequate strength and full range of motion. LYMPHATICS: No significant lymphadenopathy is noted PSYCHIATRIC: Normal psychiatric evaluation. Course Vital Signs 06/21/21 06/21/21 12:40 13:06 Temperature 98.6 F Pulse Rate 87 92 Respiratory 22 20 Rate Blood Pressure 122/86 111/72 O2 Sat by Pulse 96 97 Oximetry Medical Decision Making - Medical Decision Making EKG shows normal sinus rhythm at 85 bpm CO interval is on a 58 QRS is 92 QT interval 376 QTC is 447. Patient's EKG shows no ST segment elevation or depression. I will back into reevaluate the patient she had no complaints at this time. Patient states she'll follow-up with her neurologist. - Lab Data Result diagrams: 06/21/21 13:04 06/21/21 13:04 Lab Results 06/21/21 06/21/21 Range/Units 13:04 13:04 WBC 8.2 (3.8-10.6) k/uL RBC 5.03 (3.80-5.40) m/uL Hgb 15.4 (11.4-16.0) gm/dL Hct 45.2 (34.0-46.0) % MCV 89.9 (80.0-100.0) fL MCH 30.6 (25.0-35.0) pg MCHC 34.0 (31.0-37.0) g/dL RDW 13.4 (11.5-15.5) % Plt Count 397 (150-450) k/uL MPV 6.3 Neutrophils % 61 % Lymphocytes % 30 % Monocytes % 5 % Eosinophils % 3 % Basophils % 1 % Neutrophils # 5.0 (1.3-7.7) k/uL Lymphocytes # 2.4 (1.0-4.8) k/uL Monocytes # 0.4 (0-1.0) k/uL Eosinophils # 0.2 (0-0.7) k/uL Basophils # 0.1 (0-0.2) k/uL Sodium 140 (137-145) mmol/L Potassium 4.4 (3.5-5.1) mmol/L Chloride 109 H (98-107) mmol/L Carbon Dioxide 20 L (22-30) mmol/L Anion Gap 11 mmol/L BUN 10 (7-17) mg/dL Creatinine 0.51 L (0.52-1.04) mg/dL Est GFR (CKD-EPI)AfAm >90 (>60 ml/min/1.73 sqM) Est GFR (CKD-EPI)NonAf >90 (>60 ml/min/1.73 sqM) Glucose 90 (74-99) mg/dL Calcium 9.9 (8.4-10.2) mg/dL Total Bilirubin 0.4 (0.2-1.3) mg/dL AST 24 (14-36) U/L ALT 16 (4-34) U/L Alkaline Phosphatase 88 (38-126) U/L Total Protein 7.5 (6.3-8.2) g/dL Albumin 4.7 (3.5-5.0) g/dL Valproic Acid <10.0 ug/mL Disposition Clinical Impression: Generalized seizure Disposition: HOME SELF-CARE Instructions (If sedation given, give patient instructions): Seizure/Epilepsy Discharge Instructions & Follow-Up Is patient prescribed a controlled substance at d/c from ED?: No Referrals: Claus Nava MD [Primary Care Provider] - 1-2 days Time of Disposition: 14:00
[2021-06-21 12:55] VITALS: TEMP 98.6
[2021-06-21 13:07] VITALS: RESP 20
[2021-06-21 13:32] LABS: ALT 16 U/L (4-34); AST 24 U/L (14-36); African American GFR (CKD) >90 (>60 ml/min/1.73 sqM); Albumin 4.7 g/dL (3.5-5.0); Alkaline Phosphatase 88 U/L (38-126); Anion Gap 11 mmol/L; Blood Urea Nitrogen 10 mg/dL (7-17); Calcium 9.9 mg/dL (8.4-10.2); Carbon Dioxide 20 mmol/L (22-30); Chloride 109 mmol/L (98-107); Glucose 90 mg/dL (74-99); Non-African American GFR(CKD) >90 (>60 ml/min/1.73 sqM); Potassium 4.4 mmol/L (3.5-5.1); Sodium 140 mmol/L (137-145); Total Bilirubin 0.4 mg/dL (0.2-1.3); Total Protein 7.5 g/dL (6.3-8.2)
[2021-06-21 13:37] LABS: Valproic Acid (Depakene) <10.0 ug/mL
[2021-06-21 13:51] LABS: Basophils # (A) 0.1 k/uL (0-0.2); Basophils % (A) 1 %; Eosinophils # (A) 0.2 k/uL (0-0.7); Eosinophils % (A) 3 %; HCT 45.2 % (34.0-46.0); HGB 15.4 gm/dL (11.4-16.0); Lymphocytes # (A) 2.4 k/uL (1.0-4.8); Lymphocytes % (A) 30 %; MCH 30.6 pg (25.0-35.0); MCV 89.9 fL (80.0-100.0); Mean Platelet Volume 6.3; Monocytes # (A) 0.4 k/uL (0-1.0); Monocytes % (A) 5 %; Neutrophils % (A) 61 %; Platelet Count 397 k/uL (150-450); RBC 5.03 m/uL (3.80-5.40); RDW 13.4 % (11.5-15.5); WBC 8.2 k/uL (3.8-10.6)
[2021-06-21 14:23] VITALS: BP 116/72; PULSE 72
== END 2021-06-21 14:19 | disposition home or self-care (01) ==
LOC: EC 12:32
DX: G40.909 Epilepsy, unspecified, not intractable, without status epilepticus (principal); K21.9 Gastro-esophageal reflux disease without esophagitis; J45.909 Unspecified asthma, uncomplicated; F31.9 Bipolar disorder, unspecified; F41.9 Anxiety disorder, unspecified; F17.200 Nicotine dependence, unspecified, uncomplicated; F12.90 Cannabis use, unspecified, uncomplicated; Z79.1 Long term (current) use of non-steroidal anti-inflammatories (NSAID); Z79.51 Long term (current) use of inhaled steroids; Z79.899 Other long term (current) drug therapy; Z88.0 Allergy status to penicillin
CPT/HCPCS: 36415; 80053; 80164; 85025; 93005; 99284

== ENCOUNTER 2021-07-02 00:59 | Emergency (ER) | payer OTHER ==
[2021-07-02 01:05] VITALS: BP 116/77; PULSE 100; RESP 17; TEMP 98
[2021-07-02] MEDS ORDERED: KETOROLAC 15 MG/ML 1 ML VIAL IM STA (01:17)
[2021-07-02] MEDS ORDERED: ACET/COD 300 MG/30 MG STARTER PACK 6 TAB BTL PO STA (01:17)
--- NOTE | 2021-07-02 01:35 | ED ---
Lower Extremity Injury HPI - General Chief Complaint: Extremity Injury, Lower Stated Complaint: Injury,Left Leg Time Seen by Provider: 07/02/21 01:07 Source: patient Mode of arrival: wheelchair - History of Present Illness Initial Comments: 26 year-old female patient presents to the emergency department for evaluation of left leg pain. Patient states she tripped and fell while playing duck, duck, goose. States she is having left knee pain, left leg pain, left ankle pain. States pain worsens with movement. She was able to walk here tonight. Denies taking any medication for her symptoms. She denies hitting her head or losing consciousness. Patient denies any headache, neck pain, back pain, chest pain, shortness of breath, dizziness, weakness, abdominal pain, nausea, vomiting, or difficulties with bowel movements or urination. Denies any chance of . - Related Data Home Medications Medication Instructions Recorded Confirmed Albuterol Sulfate [Proair Hfa] 1 - 2 puff INHALATION RT-QID PRN 11/06/20 06/21/21 Budesonide/Formoterol Fumarate 2 puff INHALATION RT-BID 11/06/20 06/21/21 [Symbicort 80-4.5 Mcg Inhaler] Ibuprofen [Motrin] 800 mg PO QID PRN 11/06/20 06/21/21 Dicyclomine HCl 20 mg PO Q6H 06/21/21 06/21/21 Fluticasone Nasal [place] [Flonase 1 spray EA NOSTRIL DAILY 06/21/21 06/21/21 Nasal [place]] Montelukast Sodium [Singulair] 10 mg PO HS 06/21/21 06/21/21 Sertraline HCl [Zoloft] 100 mg PO DAILY 06/21/21 06/21/21 Topiramate [Topamax] 50 mg PO BID 06/21/21 06/21/21 busPIRone HCL 15 mg PO TID PRN 06/21/21 06/21/21 Previous Rx's Medication Instructions Recorded Ethosuximide 250 mg PO BID #28 capsule 11/25/20 Ibuprofen [Motrin] 600 mg PO Q8HR PRN #30 tab 07/02/21 Allergies Allergy/AdvReac Type Severity Reaction Status Date / Time Penicillins Allergy Anaphylaxis Verified 07/02/21 01:05 Review of Systems ROS Statement: Those systems with pertinent positive or pertinent negative responses have been documented in the HPI. ROS Other: All systems not noted in ROS Statement are negative. Past Medical History Past Medical History: Asthma, GERD/Reflux, Seizure Disorder Additional Past Medical History / Comment(s): Anxiety, Depression History of Any Multi-Drug Resistant Organisms: None Reported Past Surgical History: Adenoidectomy, Orthopedic Surgery, Tonsillectomy Additional Past Surgical History / Comment(s): broken back, ribs Past Psychological History: Anxiety, Bipolar, Depression Smoking Status: Current every day smoker Past Alcohol Use History: Rare Past Drug Use History: Marijuana General Exam General appearance: alert, in no apparent distress, other (This is a well- developed, well-nourished adult female patient in no acute distress. Vital signs upon presentation are temperature 98.0F, pulse 100, respirations 17, blood pressure 116/77, pulse ox 95% on room air.) Respiratory exam: Present: normal lung sounds bilaterally. Absent: respiratory distress, wheezes, rales, rhonchi, stridor Cardiovascular Exam: Present: regular rate, normal rhythm, normal heart sounds. Absent: systolic murmur, diastolic murmur, rubs, gallop, clicks GI/Abdominal exam: Present: soft, normal bowel sounds. Absent: distended, tenderness, guarding, rebound, rigid Extremities exam: Present: normal inspection, full ROM, tenderness (Over the entirety of the left leg), normal capillary refill, other (Pedal posttibial pulses 2+. No evidence for swelling. Skin is pink, warm, dry. Cap refill less than 3 seconds.). Absent: pedal edema, joint swelling, calf tenderness Neurological exam: Present: alert, oriented X3, CN II-XII intact Psychiatric exam: Present: normal affect, normal mood Skin exam: Present: warm, dry, intact, normal color. Absent: rash Course Vital Signs 07/02/21 01:02 Temperature 98 F Pulse Rate 100 Respiratory 17 Rate Blood Pressure 116/77 O2 Sat by Pulse 95 Oximetry Medical Decision Making - Medical Decision Making 26 year-old female patient presents to the emergency department today reporting left leg pain. Patient states she had a fall. Physical examination did reveal tenderness over the entirety of the left leg. She said mostly around the knee and ankle. X-rays of the knee and ankle were obtained and were negative. Patient is able to ambulate. We did put [place] wrap over the knee and ankle. She is given ibuprofen prescription. Instructed to follow-up the primary care physician for recheck in 1-2 days. Have repeat x-rays performed in 7-10 days if pain symptoms persist. Return parameters were discussed in detail. She verbalizes understanding and agrees with this plan. My attending is Dr. Hernandez. - Radiology Data Radiology results: report reviewed, image reviewed Disposition Clinical Impression: Left knee sprain, Left ankle sprain Disposition: HOME SELF-CARE Condition: Good Instructions (If sedation given, give patient instructions): Ankle Sprain (ED), Knee Sprain (ED) Additional Instructions: Use ventura wrap for comfort and support. Take, Motrin for pain control. Follow-up through primary care physician for recheck in 1-2 days. Have repeat x-rays performed in 7-10 days if pain symptoms persist. Return to the emergency department for any new, worsening, or concerning symptoms. Prescriptions: Ibuprofen [Motrin] 600 mg PO Q8HR PRN #30 tab PRN Reason: Pain Is patient prescribed a controlled substance at d/c from ED?: No Referrals: Claus Nava MD [Primary Care Provider] - 1-2 days Time of Disposition: 01:56
--- NOTE | 2021-07-02 01:39 | XR ---
EXAMINATION TYPE: XR ankle complete LT DATE OF EXAM: 07/02/2021 COMPARISON: NONE HISTORY: Fall. Ankle pain TECHNIQUE: 3 views FINDINGS: Ankle mortise is anatomic. I see no fracture nor dislocation. Joint spaces are normal. IMPRESSION: Negative left ankle exam.
--- NOTE | 2021-07-02 01:40 | XR ---
EXAMINATION TYPE: XR knee complete LT DATE OF EXAM: 07/02/2021 COMPARISON: 02/27/2017 HISTORY: Pain TECHNIQUE: 3 views FINDINGS: I see no fracture nor dislocation. Joint spaces are normal. There is no sign of joint effus ion. IMPRESSION: Negative left knee exam.
== END 2021-07-02 02:05 | disposition home or self-care (01) ==
LOC: EC 00:59
DX: S93.402A Sprain of unspecified ligament of left ankle, initial encounter (principal); S83.92XA Sprain of unspecified site of left knee, initial encounter; K21.9 Gastro-esophageal reflux disease without esophagitis; J45.909 Unspecified asthma, uncomplicated; G40.909 Epilepsy, unspecified, not intractable, without status epilepticus; F17.200 Nicotine dependence, unspecified, uncomplicated; F32.9 Major depressive disorder, single episode, unspecified; F41.9 Anxiety disorder, unspecified; F12.90 Cannabis use, unspecified, uncomplicated; Z79.51 Long term (current) use of inhaled steroids; Z79.1 Long term (current) use of non-steroidal anti-inflammatories (NSAID); Z79.899 Other long term (current) drug therapy; W01.0XXA Fall on same level from slipping, tripping and stumbling without subsequent striking against object, initial encounter
CPT/HCPCS: 73562; 73610; 96372; 99284; J1885

== ENCOUNTER 2021-07-16 23:46 | Emergency (ER) | payer OTHER ==
[2021-07-17 00:02] VITALS: TEMP 97.6
[2021-07-17] MEDS ORDERED: ALBUTEROL HFA INHALER INHALATION STA (00:18)
--- NOTE | 2021-07-17 01:12 | XR ---
EXAMINATION TYPE: XR chest 2V DATE OF EXAM: 07/17/2021 COMPARISON: 12/25/2018 HISTORY: Short of breath TECHNIQUE: 2 views FINDINGS: Heart and mediastinum are normal. Lungs are clear. Diaphragm is normal. Bony thorax is inta ct. There are chest leads. IMPRESSION: Normal chest. No change.
--- NOTE | 2021-07-17 01:22 | ED ---
General Adult HPI - General Chief complaint: Shortness of Breath Stated complaint: TASHIA Time Seen by Provider: 07/16/21 23:56 Source: patient, EMS, RN notes reviewed Mode of arrival: EMS Limitations: no limitations - History of Present Illness Initial comments: Patient is a 26 she'll female that presents to emergency department complaining of an asthma attack. She also she tried taking her inhaler and her anxiety medication but did not feel like it relieved it fast enough so she came to the emergency department. Patient was a well-appearing 26 she'll female in no apparent distress or pain while laying in bed during exam and interview. Her vitals were stable while lying in bed. She denied any other issues or complaints at this time. She denied any chest pain headache nausea vomiting diarrhea constipation fever fatigue chills. - Related Data Home Medications Medication Instructions Recorded Confirmed Albuterol Sulfate [Proair Hfa] 1 - 2 puff INHALATION RT-QID PRN 11/06/20 06/21/21 Budesonide/Formoterol Fumarate 2 puff INHALATION RT-BID 11/06/20 06/21/21 [Symbicort 80-4.5 Mcg Inhaler] Ibuprofen [Motrin] 800 mg PO QID PRN 11/06/20 06/21/21 Dicyclomine HCl 20 mg PO Q6H 06/21/21 06/21/21 Fluticasone Nasal [place] [Flonase 1 spray EA NOSTRIL DAILY 06/21/21 06/21/21 Nasal [place]] Montelukast Sodium [Singulair] 10 mg PO HS 06/21/21 06/21/21 Sertraline HCl [Zoloft] 100 mg PO DAILY 06/21/21 06/21/21 Topiramate [Topamax] 50 mg PO BID 06/21/21 06/21/21 busPIRone HCL 15 mg PO TID PRN 06/21/21 06/21/21 Previous Rx's Medication Instructions Recorded Ethosuximide 250 mg PO BID #28 capsule 11/25/20 Ibuprofen [Motrin] 600 mg PO Q8HR PRN #30 tab 07/02/21 predniSONE 50 mg PO DAILY #5 tab 07/17/21 Allergies Allergy/AdvReac Type Severity Reaction Status Date / Time Penicillins Allergy Anaphylaxis Verified 07/02/21 01:05 Review of Systems ROS Statement: Those systems with pertinent positive or pertinent negative responses have been documented in the HPI. ROS Other: All systems not noted in ROS Statement are negative. Past Medical History Past Medical History: Asthma, GERD/Reflux, Seizure Disorder Additional Past Medical History / Comment(s): Anxiety, Depression History of Any Multi-Drug Resistant Organisms: None Reported Past Surgical History: Adenoidectomy, Orthopedic Surgery, Tonsillectomy Additional Past Surgical History / Comment(s): broken back, ribs Past Psychological History: Anxiety, Bipolar, Depression Smoking Status: Current every day smoker Past Alcohol Use History: Rare Past Drug Use History: Marijuana General Exam Limitations: no limitations General appearance: alert, in no apparent distress, obese Head exam: Present: atraumatic, normocephalic, normal inspection Eye exam: Present: normal appearance, PERRL, EOMI. Absent: scleral icterus, conjunctival injection, periorbital swelling Neck exam: Present: normal inspection Respiratory exam: Present: normal lung sounds bilaterally. Absent: respiratory distress, wheezes, rales, rhonchi, stridor Cardiovascular Exam: Present: regular rate, normal rhythm, normal heart sounds. Absent: systolic murmur, diastolic murmur, rubs, gallop, clicks Extremities exam: Present: normal inspection, full ROM, normal capillary refill. Absent: tenderness, pedal edema, joint swelling, calf tenderness Neurological exam: Present: alert, oriented X3 Psychiatric exam: Present: normal affect, normal mood Skin exam: Present: warm, dry, intact, normal color. Absent: rash Course Vital Signs 07/16/21 07/17/21 23:56 00:02 Temperature 97.6 F Pulse Rate 84 Respiratory 20 20 Rate Blood Pressure 124/67 O2 Sat by Pulse 97 Oximetry EKG Findings - EKG Comments: EKG Findings:: Ventricular rate 74 bpm, WI interval 140 ms, QRS duration 94 ms, QTC 417 ms, PRT axis 21/59/30. Sinus rhythm with marked sinus arrhythmia. Otherwise normal ECG. Medical Decision Making - Medical Decision Making 26-year-old female complaining of asthma attack and anxiety. Chest x-ray, EKG ordered. Vital signs are stable, patient saturating 98% on room air, heart rate in the mid 80s on the monitor blood pressure within normal limits. Chest x-ray negative for any acute process. EKG within normal limits. Albuterol ordered. Case discussed with Dr. Dunn, patient can discharge home with follow-up to primary care. - Radiology Data Radiology results: report reviewed, image reviewed Chest x-ray: Normal chest. No change. Disposition Clinical Impression: Asthma, Anxiety Disposition: HOME SELF-CARE Condition: Stable Instructions (If sedation given, give patient instructions): Asthma (ED) Additional Instructions: Please return to the Emergency Department if symptoms worsen or any other concerns. Follow-up with primary 1-2 days Take at home medications as prescribed. Is patient prescribed a controlled substance at d/c from ED?: No Referrals: Claus Nava MD [Primary Care Provider] - 1-2 days Time of Disposition: 01:34
[2021-07-17 01:44] VITALS: BP 118/61; PULSE 75; RESP 16
== END 2021-07-17 01:40 | disposition home or self-care (01) ==
LOC: EC 23:46
DX: J45.909 Unspecified asthma, uncomplicated (principal); F41.9 Anxiety disorder, unspecified; K21.9 Gastro-esophageal reflux disease without esophagitis; F31.9 Bipolar disorder, unspecified; F17.200 Nicotine dependence, unspecified, uncomplicated; F12.90 Cannabis use, unspecified, uncomplicated; Z90.89 Acquired absence of other organs; Z88.0 Allergy status to penicillin; Z79.51 Long term (current) use of inhaled steroids
CPT/HCPCS: 71046; 94640; 99285

== ENCOUNTER 2021-09-06 05:40 | Emergency (ER) | payer OTHER ==
[2021-09-06] MEDS ORDERED: diphenhydrAMINE 50 MG/ML 1 ML VIAL IVP STA (06:16)
[2021-09-06] MEDS ORDERED: FAMOTIDINE 20 MG/2 ML VIAL IV STA (06:16)
[2021-09-06] MEDS ORDERED: methylPREDNISolone SOD SUCCI 125 MG/2 ML VIAL IV STA (06:16)
--- NOTE | 2021-09-06 06:38 | ED ---
Skin/Abscess/FB HPI - General Chief complaint: Skin/Abscess/Foreign Body Stated complaint: Possible allergic reaction Time Seen by Provider: 09/06/21 06:04 Source: patient, family, RN notes reviewed Mode of arrival: ambulatory Limitations: no limitations - History of Present Illness Initial comments: Patient is a 26 she'll female that presents to the emergency department complaining of several bug bites to her left shoulder and one to her right forearm. She notes she was at work this morning when she noticed that she had several if she bumps on her upper extremities. She became worried and anxious and decided come emergency room to get evaluated. She denied any ALLERGIES to any substances except for Hornets. She was otherwise well-appearing. She denied any other issues. She was denied any chest pain shortness of breath headache nausea vomiting diarrhea constipation fever fatigue chills. - Related Data Home Medications Medication Instructions Recorded Confirmed Albuterol Sulfate [Proair Hfa] 1 - 2 puff INHALATION RT-QID PRN 11/06/20 06/21/21 Budesonide/Formoterol Fumarate 2 puff INHALATION RT-BID 11/06/20 06/21/21 [Symbicort 80-4.5 Mcg Inhaler] Ibuprofen [Motrin] 800 mg PO QID PRN 11/06/20 06/21/21 Dicyclomine HCl 20 mg PO Q6H 06/21/21 06/21/21 Fluticasone Nasal [place] [Flonase 1 spray EA NOSTRIL DAILY 06/21/21 06/21/21 Nasal [place]] Montelukast Sodium [Singulair] 10 mg PO HS 06/21/21 06/21/21 Sertraline HCl [Zoloft] 100 mg PO DAILY 06/21/21 06/21/21 Topiramate [Topamax] 50 mg PO BID 06/21/21 06/21/21 busPIRone HCL 15 mg PO TID PRN 06/21/21 06/21/21 Previous Rx's Medication Instructions Recorded Ethosuximide 250 mg PO BID #28 capsule 11/25/20 Ibuprofen [Motrin] 600 mg PO Q8HR PRN #30 tab 07/02/21 predniSONE 50 mg PO DAILY #5 tab 07/17/21 Allergies Allergy/AdvReac Type Severity Reaction Status Date / Time Penicillins Allergy Anaphylaxis Verified 09/06/21 05:44 Review of Systems ROS Statement: Those systems with pertinent positive or pertinent negative responses have been documented in the HPI. ROS Other: All systems not noted in ROS Statement are negative. Past Medical History Past Medical History: Asthma, GERD/Reflux, Seizure Disorder Additional Past Medical History / Comment(s): Anxiety, Depression History of Any Multi-Drug Resistant Organisms: None Reported Past Surgical History: Adenoidectomy, Orthopedic Surgery, Tonsillectomy Additional Past Surgical History / Comment(s): broken back, ribs Past Psychological History: Anxiety, Bipolar, Depression Smoking Status: Current every day smoker Past Alcohol Use History: Rare Past Drug Use History: Marijuana General Exam Limitations: no limitations General appearance: alert, in no apparent distress, obese Head exam: Present: atraumatic, normocephalic, normal inspection Eye exam: Present: normal appearance, PERRL, EOMI. Absent: scleral icterus, conjunctival injection, periorbital swelling Neck exam: Present: normal inspection Respiratory exam: Present: normal lung sounds bilaterally. Absent: respiratory distress, wheezes, rales, rhonchi, stridor Cardiovascular Exam: Present: regular rate, normal rhythm, normal heart sounds. Absent: systolic murmur, diastolic murmur, rubs, gallop, clicks GI/Abdominal exam: Present: soft, normal bowel sounds. Absent: distended, tenderness, guarding, rebound, rigid Extremities exam: Present: normal inspection, full ROM, normal capillary refill. Absent: tenderness, pedal edema, joint swelling, calf tenderness Neurological exam: Present: alert, oriented X3 Psychiatric exam: Present: normal affect, normal mood Skin exam: Present: warm, dry, intact, normal color, urticaria (2 spots to the anterior left shoulder, one spot dorsal right forearm all measuring approximately 1 cm x 1 cm nonpainful.). Absent: rash Course Vital Signs 09/06/21 05:44 Temperature 97.6 F Pulse Rate 97 Respiratory 16 Rate Blood Pressure 115/81 O2 Sat by Pulse 95 Oximetry Medical Decision Making - Medical Decision Making 26 she'll female several bug bites to left anterior shoulder and right forearm. 50 mg of Benadryl, 20 mg Pepcid, 125 mg of Solu-Medrol ordered for mild ALLERGIC reaction. Patient was informed that she can take Benadryl [id number] to alleviate symptoms at home. Patient's vitals are stable and is in no distress. Case discussed with Dr. Hernandez, patient can discharge home. With follow-up to primary care Disposition Clinical Impression: Hymenoptera sting, Allergic reaction Disposition: HOME SELF-CARE Condition: Stable Instructions (If sedation given, give patient instructions): General Allergic Reaction (ED) Additional Instructions: Please return to the Emergency Department if symptoms worsen or any other concerns. Follow-up with primary care 1-2 days. Take Benadryl as directed on the box for any continuing symptoms. Is patient prescribed a controlled substance at d/c from ED?: No Referrals: Claus Nava MD [Primary Care Provider] - 1-2 days Time of Disposition: 06:38
[2021-09-06 07:38] VITALS: BP 122/82; PULSE 92; RESP 18; TEMP 97
== END 2021-09-06 07:08 | disposition home or self-care (01) ==
LOC: EC 05:40
DX: T63.461A Toxic effect of venom of wasps, accidental (unintentional), initial encounter (principal); J45.909 Unspecified asthma, uncomplicated; K21.9 Gastro-esophageal reflux disease without esophagitis; F41.9 Anxiety disorder, unspecified; F31.9 Bipolar disorder, unspecified; F17.200 Nicotine dependence, unspecified, uncomplicated; F12.90 Cannabis use, unspecified, uncomplicated; Z88.0 Allergy status to penicillin; Z90.89 Acquired absence of other organs
CPT/HCPCS: 99282; 96374; 96375 ×2; J1200; J2930

== ENCOUNTER 2023-03-25 20:05 | Emergency (ER) | payer OTHER ==
--- NOTE | 2023-03-25 22:01 | XR ---
EXAMINATION TYPE: XR chest 2V DATE OF EXAM: 03/25/2023 9:48 PM COMPARISON: Chest radiographs from 07/17/2021 TECHNIQUE: XR chest 2V Frontal and lateral views of the chest. CLINICAL INDICATION:Female, 27 years old with history of cough and shortness of breath; FINDINGS: Lungs/Pleura: There is no evidence of pleural effusion, focal consolidation, or pneumothorax. Pulmonary vascularity: Unremarkable. Heart/mediastinum: Cardiomediastinal silhouette is unremarkable. Musculoskeletal: No acute osseous pathology. IMPRESSION: No acute cardiopulmonary disease/process.
[2023-03-25] MEDS ORDERED: BENZONATATE 100 MG CAP PO STA (23:02)
[2023-03-25] MEDS ORDERED: ONDANSETRON ODT 4 MG TAB PO STA (23:02)
[2023-03-25] MEDS ORDERED: IPRATROPIUM-ALBUTEROL 3 ML NEB INHALATION STA (23:02)
[2023-03-25] MEDS ORDERED: methylPREDNISolone SOD SUCCI 125 MG/2 ML VIAL IM ONE (23:02)
[2023-03-25] MEDS ORDERED: IPRATROPIUM BROMIDE 0.06% NASAL SPRAY (15 ML) NASAL ONE (23:06)
--- NOTE | 2023-03-25 23:06 | ED ---
SOB HPI - General Chief Complaint: Shortness of Breath Stated Complaint: SOB Time Seen by Provider: 03/25/23 22:26 Source: patient, RN notes reviewed Mode of arrival: ambulatory Limitations: no limitations - History of Present Illness Initial Comments: This is a 27-year-old female who presents to the emergency department for coughing, congestion, and shortness of breath. States that the symptoms started this morning. She used her rescue inhaler with no relief. Her cough is described as productive. She also has a lot of nasal drainage. She has chest discomfort from all the coughing, but otherwise no chest pain. All of the coughing is also making her nauseous, causing her to vomit. States that she feels like her asthma is flaring up. Denies any fevers, chills, or sick contacts. Denies any fevers, chills, sore throat, palpitations, abdominal pain, diarrhea, back pain, or headaches. MD Complaint: shortness of breath, cough - Related Data Home Medications Medication Instructions Recorded Confirmed Albuterol Sulfate [Proair Hfa] 1 - 2 puff INHALATION RT-QID PRN 11/06/20 06/21/21 Budesonide/Formoterol Fumarate 2 puff INHALATION RT-BID 11/06/20 06/21/21 [Symbicort 80-4.5 Mcg Inhaler] Ibuprofen [Motrin] 800 mg PO QID PRN 11/06/20 06/21/21 Dicyclomine HCl 20 mg PO Q6H 06/21/21 06/21/21 Fluticasone Nasal [place] [Flonase 1 spray EA NOSTRIL DAILY 06/21/21 06/21/21 Nasal [place]] Montelukast Sodium [Singulair] 10 mg PO HS 06/21/21 06/21/21 Sertraline HCl [Zoloft] 100 mg PO DAILY 06/21/21 06/21/21 Topiramate [Topamax] 50 mg PO BID 06/21/21 06/21/21 busPIRone HCL 15 mg PO TID PRN 06/21/21 06/21/21 Previous Rx's Medication Instructions Recorded Ethosuximide 250 mg PO BID #28 capsule 11/25/20 Ibuprofen [Motrin] 600 mg PO Q8HR PRN #30 tab 07/02/21 predniSONE 50 mg PO DAILY #5 tab 07/17/21 Codeine Phosphate/Guaifenesin 5 ml PO Q8H PRN #118 ml 03/25/23 [Virtussin AC 10-100 mg/5 ml Lq] predniSONE 50 mg PO DAILY 5 Days #5 tablet 03/25/23 Ipratropium [place] [Atrovent Hfa] 2 puff INHALATION QID #12.9 gm 03/26/23 Ondansetron Odt [Zofran Odt] 4 mg PO Q8HR PRN #10 tab 03/26/23 Allergies Allergy/AdvReac Type Severity Reaction Status Date / Time Penicillins Allergy Anaphylaxis Verified 03/25/23 21:34 Review of Systems ROS Statement: Those systems with pertinent positive or pertinent negative responses have been documented in the HPI. ROS Other: All systems not noted in ROS Statement are negative. Past Medical History Past Medical History: Asthma, GERD/Reflux, Seizure Disorder Additional Past Medical History / Comment(s): Anxiety, Depression History of Any Multi-Drug Resistant Organisms: None Reported Past Surgical History: Adenoidectomy, Orthopedic Surgery, Tonsillectomy Additional Past Surgical History / Comment(s): broken back, ribs Past Psychological History: Anxiety, Bipolar, Depression Smoking Status: Current every day smoker Past Alcohol Use History: Rare Past Drug Use History: Marijuana General Exam Limitations: no limitations General appearance: alert, in no apparent distress Head exam: Present: atraumatic, normocephalic, normal inspection Respiratory exam: Present: normal lung sounds bilaterally. Absent: respiratory distress, wheezes, rales, rhonchi, stridor Cardiovascular Exam: Present: regular rate, normal rhythm, normal heart sounds. Absent: systolic murmur, diastolic murmur, rubs, gallop, clicks GI/Abdominal exam: Present: soft, normal bowel sounds. Absent: distended, tenderness, guarding, rebound, rigid Neurological exam: Present: alert, oriented X3, CN II-XII intact Psychiatric exam: Present: normal affect, normal mood Skin exam: Present: warm, dry, intact, normal color. Absent: rash Course Vital Signs 03/25/23 03/25/23 03/25/23 21:28 23:28 23:53 Temperature 99.2 F 98.5 F Pulse Rate 100 98 96 Respiratory 18 20 Rate Blood Pressure 110/80 111/71 O2 Sat by Pulse 98 95 Oximetry 03/26/23 00:09 Temperature Pulse Rate 98 Respiratory Rate Blood Pressure O2 Sat by Pulse Oximetry Medical Decision Making - Medical Decision Making This is a 27-year-old female who presents to the emergency department for coughing, congestion, and shortness of breath. Was pt. sent in by a medical professional or institution? @ -No Did you speak to anyone other than the patient for history? @ -No Did you review nursing and triage notes? @ -Yes, and I agree, it is accurate with regards to the patient's symptoms. Were old charts reviewed? @ -No Differential Diagnosis? @ -Differential Dyspnea: Coronary syndrome, arrhythmia, tamponade, asthma, COPD, pulmonary embolism, pneumonia, pneumothorax, pulmonary effusion, anaphylaxis, diabetic ketoacidosis, flailed chest, pulmonary contusion, diaphragmatic rupture, anemia, neuromuscular, this is not meant to be an all-inclusive list. X-rays interpreted by me (1pt min.)? @ -Chest x-ray obtained, my interpretation identifies no localized consolidations or infiltrates. What testing was considered but not performed? (CT, X-rays, U/S, labs)? Why? @ -None What meds were considered but not given? Why? @ -None Did you discuss the management of the patient with other professionals? @ -No Did you reconcile home meds? @ -No Was smoking cessation discussed for >3mins.? @ -No Was critical care preformed (if so, how long)? @ -No Were there social determinants of health that impacted care today? How? (Homelessness, low income, unemployed, alcoholism, drug addiction, transportation, low edu. Level, literacy, decrease access to med. care, prison, rehab)? @ -No Was there de-escalation of care discussed even if they declined? (Discuss DNR or withdrawal of care, Hospice)? @ -No What co-morbidities impacted this encounter? (DM, HTN, Smoking, COPD, CAD, Cancer, CVA, Hep., AIDS, mental health diagnosis, sleep apnea, morbid obesity)? @ -Asthma Was patient admitted / discharged? @ -Discharged. Chest x-ray obtained revealing no acute findings. Patient nega tive for Covid, influenza, and RSV. Given the associated coughing and congestion, symptoms most likely related to an asthmatic bronchitis. She was given a DuoNeb breathing treatment with improvement in symptoms. IM Solu- Medrol, Zofran, Tessalon Perles, and ipratropium nasal spray provided as well. She was sent home with the bottle of nasal spray, which I advised she can use 3- 4 times daily for the postnasal drainage. Prescriptions for 5 day course of prednisone, Virtussin cough syrup, and Atrovent inhaler provided with dosing instructions reviewed. Advised that the cough medication can be sedating and she should avoid driving or operating machinery when taking this. I did also send in a prescription for Zofran for any additional nausea or vomiting. Undiagnosed new problem with uncertain prognosis? @ -None Drug Therapy requiring intensive monitoring for toxicity (Heparin, Nitro, Insulin, Cardizem)? @ -None Were any procedures done? @ -None Diagnosis/symptom? @ -Asthmatic bronchitis Acute, or Chronic, or Acute on Chronic? @ -Acute Uncomplicated (without systemic symptoms) or Complicated (systemic symptoms)? @ -Uncomplicated Side effects of treatment? @ -None Exacerbation, Progression, or Severe Exacerbation] @ -Not applicable Poses a threat to life or bodily function? @ -No Return precautions reviewed in depth, the patient is instructed to return to the emergency department with any new, worsening, or concerning symptoms. Patient verbalized understanding. This case was discussed in detail with the attending ED physician, Dr. Laws. Presentation, findings, and treatment plan discussed in detail as well. - Lab Data Lab Results 03/25/23 Range/Units 21:30 Influenza Type A (PCR) Not Detected (Not Detectd) Influenza Type B (PCR) Not Detected (Not Detectd) RSV (PCR) Not Detected (Not Detectd) SARS-CoV-2 (PCR) Not Detected (Not Detectd) - Radiology Data Radiology results: report reviewed, image reviewed Disposition Clinical Impression: Asthmatic bronchitis Disposition: HOME SELF-CARE Instructions (If sedation given, give patient instructions): Acute Bronchitis (ED), Bronchospasm (ED) Additional Instructions: Return to the emergency department with any new, worsening, or concerning symptoms. Take the prednisone daily for 5 days. You can take the cough medication every 8 hours as needed. Be aware that this may be sedating and you should avoid driving or operating machinery when taking this. You can use the nasal spray as 2 sprays in each nostril 3-4 times daily to help with the postnasal drip. You can also use the Atrovent inhaler 4 times daily to further help with the shortness of breath. Follow up with your primary care provider in 1-2 days. Prescriptions: Ipratropium [place] [Atrovent Hfa] 2 puff INHALATION QID #12.9 gm predniSONE 50 mg PO DAILY 5 Days #5 tablet Codeine Phosphate/Guaifenesin [Virtussin AC 10-100 mg/5 ml Lq] 5 ml PO Q8H PRN #118 ml PRN Reason: Cough Is patient prescribed a controlled substance at d/c from ED?: Yes When asked, does pt state using other controlled substances?: Yes If prescribed controlled substance>3 days was MAPS reviewed?: Prescribed <3 Days Referrals: None,Stated [Primary Care Provider] - 1-2 days
[2023-03-25 23:30] VITALS: RESP 20
[2023-03-26 00:10] VITALS: PULSE 98
[2023-03-26 00:34] VITALS: BP 134/77; TEMP 98.7
== END 2023-03-26 00:34 | disposition home or self-care (01) ==
LOC: EC 20:05
DX: J45.909 Unspecified asthma, uncomplicated (principal); G40.909 Epilepsy, unspecified, not intractable, without status epilepticus; F31.9 Bipolar disorder, unspecified; F41.9 Anxiety disorder, unspecified; F17.200 Nicotine dependence, unspecified, uncomplicated; F12.90 Cannabis use, unspecified, uncomplicated; Z20.822 Contact with and (suspected) exposure to COVID-19; Z79.51 Long term (current) use of inhaled steroids; Z79.899 Other long term (current) drug therapy; Z88.0 Allergy status to penicillin
CPT/HCPCS: 94640; 87636; 71046; 99285; 96372; J2930